=== PATIENT | male | born 1945 | race Caucasian/White ===

== ENCOUNTER 2018-04-14 14:58 | Observation (INO) | payer MEDICARE, OTHER ==
[~2018-04-14] VITALS: Ht 180.3 cm; Wt 188.7 kg
--- OUTSIDE RECORDS SUMMARY | 2018-04-14 15:01 | XMS REPORT | Continuity of Care Document ---
Author Author [facility] Address [address] [place] [address] ;ext= Care Team Providers Care Vegetable Cook Name Role Phone CHAZMOHINIBAKARI Admphys [facility] Diagnosis * No data in the System SOCIAL HISTORY * Smoking Status - No data in the system Problems Code Code System Problem Name Start Date End Date Status 496628492 SNOMED-CT Small bowel obstruction 01/29/2018 Active 1119927 SNOMED-CT Acute abdomen 06/01/1999 Active 6435678 SNOMED-CT Priapism [address] Description [id number] Patient Not On Self-Medication Allergies Code Code System Allergy Substance Type Reaction Severity Start Date End Date Status RXNorm NKA Drug allergy Unknown Active Results Laboratory Results Order: [facility] HISTOLOGY RESULT Specimen Source: APSURG Body Site: LOINC Test Result Flag Range Unit Date 1 01/30/2018 11:[address] [place] [address] 01/30/2018 11:39 1 [place], [place] [address] 01/30/2018 11:39 1 01/30/2018 11:39 1 CLIA #: [id number] Varnish Inspector: Brenden Jenkins M.D. 01/30/2018 11:39 1 Surgical Pathology Consultation Report 01/30/2018 11:39 1 Patient Name: MCKAY KEITH Case #: [id number] Med. Rec. #: 01/30/2018 11:39 8 [id number] 01/30/2018 11:39 1 Location: [facility] Surgery Date: 01/29/2018 : 1945 (Age: 72) 01/30/2018 11:39 1 Account #: 01/30/2018 11:39 2 [id number] Received: 01/30/2018 Gender: M Copy to : Reported: 01/30/2018 11:39 1 01/31/2018 01/30/2018 11:39 1 Physician(s): Mohini Ware 01/30/2018 11:39 1 01/30/2018 11:39 1 Specimen(s) Received 01/30/2018 11:39 1 A: Hernia sac, NOS 01/30/2018 11:39 1 B: Omentum, resection 01/30/2018 11:39 1 Final Pathologic Diagnosis 01/30/2018 11:39 1 A. Soft tissue of abdomen, hernia repair: 01/30/2018 11:39 1 - HERNIA SAC. 01/30/2018 11:39 1 B. Omentum, resection: 01/30/2018 11:39 1 - MATURE ADIPOSE TISSUE, NO TUMOR PRESENT. 01/30/2018 11:39 1 Electronically Signed Out 01/30/2018 11:39 1 ka/01/31/2018 Brenden Jenkins MD, Board Certified in Anatomic Pathology 01/30/2018 11:39 1 01/30/2018 11:39 1 Clinical History 01/30/2018 11:39 1 Abdominal hernia. 01/30/2018 11:39 1 Gross Description 01/30/2018 11:39 1 Specimen A is labeled hernia sac. Three pieces of fatty omental tissue 01/30/2018 11:39 1 measuring 9.8 x 9 x up to 5 cm in aggregate are received. Serially 01/30/2018 11:39 1 sectioning 01/30/2018 11:39 1 reveals a slightly hemorrhagic cut surface. Architectural Technologist sections are 01/30/2018 11:39 1 submitted in cassette A. 01/30/2018 11:39 1 Specimen B is labeled omentum. An aggregate of fatty omental tissue 01/30/2018 11:39 1 measuring 01/30/2018 11:39 1 16 x 14 x up to 8 cm is received. Serially sectioning reveals a bright 01/30/2018 11:39 1 yellow 01/30/2018 11:39 1 cut surface. There are no tumor masses identified. 01/30/2018 11:39 1 /01/30/2018 Brenden Jenkins MD, Board Certified in Anatomic Pathology 01/30/2018 11:39 1 01/30/2018 11:39 1 Microscopic Description 01/30/2018 11:39 1 Microscopic examination of specimen A labeled hernia sac reveals 01/30/2018 11:39 1 mesothelial-lined fatty fibrovascular tissue. There is a mild chronic 01/30/2018 11:39 1 inflammatory cell infiltrate seen within the fibrous tissue. 01/30/2018 11:39 1 Microscopic examination of specimen B labeled mesenteric adipose tissue 01/30/2018 11:39 1 reveals mature adipose tissue. There are no malignant cells seen. 01/30/2018 11:39 1 Billing Fee Code(s): A; 03238 01/30/2018 11:39 1 B; 16233 01/30/2018 11:39 * Performing Lab Footnotes:* [address] [place] [address] - [phone] - [phone] [address] [facility] - MD: DIRECTOR BRENDEN JENKINS Vital Signs * No data in the system Advance Directives Undefined Advance Directive Directive Type Effective Date Martial Arts Instructor Notes Supporting Document Name Address Phone No Directive Type specified 06/29/2012 21:27 Not Specified Not Specified Not Specified None No Patient does NOT have Living Will Directive Type Effective Date Martial Arts Instructor Notes Supporting Document Name Address Phone No Directive Type specified 01/29/2018 02:49 Not Specified Not Specified Not Specified None No Full Code Directive Type Effective Date Martial Arts Instructor Notes Supporting Document Name Address Phone No Directive Type specified 01/29/2018 10:15 Not Specified Not Specified Not Specified None No Family History * Patient has no knowledge of Family History Plan of Care * No data in the system Procedures * No data in the system Encounters * No data in the system Immunizations Vaccine Code Code System Vaccine Name Date Status 141 CVX Influenza, seasonal, injectable Completed 33 CVX pneumococcal polysaccharide vaccine Completed Functional Status * No data in the system Hospital Discharge Instructions * No data in the system
--- OUTSIDE RECORDS SUMMARY | 2018-04-14 15:01 | XMS REPORT ---
[facility] Address Unknown Phone Unavailable Care Team Providers Care Control Officer Manager Name Role Phone EDDIE ORTIZ Unavailable Unavailable SHANTA ALBARADO Unavailable Unavailable EKTA ORONA Unavailable Unavailable Aditi WARE Unavailable Unavailable Payers Payer Name Policy Type Policy Number Effective Date Expiration Date Problems This patient has no known problems. Allergies, Adverse Reactions, Alerts Allergy Name Allergy Type Status Severity Reaction(s) Onset Date Inactive Date Treating Clinician Comments No Known Allergies DA Active U 2018-02-15 00:00:00 No Known Contrast Allergies DA Active U 2003-08-01 00:00:00 No Known Drug Allergies DA Active U 2003-08-01 00:00:00 No Known Food Allergies DA Active U 2003-08-01 00:00:00 No Known Other Allergies DA Active U 2003-08-01 00:00:00 Medications This patient has no known medications. Results Test Description Test Time Test Comments Text Results Atomic Results Result Comments XR FOOT 2VWS 2018-02-09 02:25:00 Procedure: XR FOOT 2VWSExam Date: February 09, 2018Ordering Provider: EDDIE ORTIZClinical Indication: pain s/p fallComparison: NoneFindings: See impressionImpression:1. No evidence of acute osseous abnormalities.2. There is diffuse soft tissue edema throughout the right foot with dorsalfoot predominance.3. Multiple soft tissue calcifications noted on the lower pretibialdistribution.4. Degenerative changes of the mid and forefootThis final report was electronically signed by Dr Eddie Figueroa MD02/09/2018 2:18 AMDictated By: Rosalinda SANTIAGO: 02/09/2018 02:18 XR LEG (TIB/FIB) 2 VIEWS 2018-02-09 02:23:54 Procedure: XR LEG (TIB/FIB) 2 VIEWS, XR LEG (TIB/FIB) 2 VIEWSExam Date: February 09, 2018Ordering Provider: Eddie Cortez Indication: pain s/p fallComparison: NoneFindings: See impressionImpression:1. No acute osseous abnormalities in the bilateral leg (tibial/fibular).2. Bilateral degenerative changes of the knee with medial compartmentpredominance.3. Diffuse soft tissue edema and vascular calcifications throughout the softtissuesThis final report was electronically signed by Dr Eddie Figueroa MD02/09/2018 2:17 AMDictated By: Rosalinda SANTIAGO: 02/09/2018 02:17 XR LEG (TIB/FIB) 2 VIEWS 2018-02-09 02:23:50 Procedure: XR LEG (TIB/FIB) 2 VIEWS, XR LEG (TIB/FIB) 2 VIEWSExam Date: February 09, 2018Ordering Provider: Eddie oCrtez Indication: pain s/p fallComparison: NoneFindings: See impressionImpression:1. No acute osseous abnormalities in the bilateral leg (tibial/fibular).2. Bilateral degenerative changes of the knee with medial compartmentpredominance.3. Diffuse soft tissue edema and vascular calcifications throughout the softtissuesThis final report was electronically signed by Dr Eddie Figueroa MD02/09/2018 2:17 AMDictated By: Rosalinda SANTIAGO: 02/09/2018 02:17 XR FOOT 2VWS 2018-02-09 02:19:45 Procedure: XR FOOT 2VWSExam Date: February 09, 2018Ordering Provider: Eddie Cortez Indication: pain s/p fallComparison: NoneFindings: See impressionImpression:1. No evidence of acute osseous abnormalities.2. There is diffuse soft tissue edema throughout the right foot with dorsalfoot predominance.3. Multiple soft tissue calcifications noted on the level of the ankle.4. Degenerative changes of the mid and forefootThis final report was electronically signed by Dr Eddie Figueroa MD02/09/2018 2:13 AMDictated By: Rosalinda SANTIAGO: 02/09/2018 02:13 CBC WITH MANUAL DIFF 2018-02-06 14:44:00 WBC (test code=WBC) 11.07 10\\S\\3/ul 4.80-10.80 RBC (test code=RBC) 4.39 10\\S\\6/ul 4.70-6.10 Hemoglobin (test code=HGB) 14.5 gm/dl 14.0-18.0 Hematocrit (test code=HCT) 43.4 % 42.0-50.0 MCV (test code=MCV) 98.9 fL 80.0-94.0 MCH (test code=MCH) 33.0 pg 27.0-31.0 MCHC (test code=MCHC) 33.4 gm/dl 33.0-37.0 RDW (test code=RDWVC) 12.8 % 11.5-14.5 Platelet (test code=PLT) 170 10\\S\\3/ul 130-400 MPV (test code=MPV) 10.6 fL 7.4-10.4 "NOT MEASURED" RESULTS ARE DISPLAYED WHEN THE INSTRUMENT HAS A SUPPRESSED OR UNREPORTABLE RESULT. THIS WILL MOST OFTEN HAPPEN WITH THE MPV WHEN THERE IS AN ABNORMAL PLATELET DISTRIBUTION DUE TO A CR ITICAL LOW VALUE OR PLATELET CLUMPING. THE RDW MAY BE SUPPRESSED IF THERE ARE MULTIPLE PEAKS PRESENT ON THE RBC HISTOGRAM. IN THIS CASE, A MANUAL REVIEW OF THE SLIDE WILL BE PERFORMED, AND RBC MORPHOLOGY WILL BE NOTED ON THE REPORT. Neutrophils (test code=NEUTR) 84 10\\S\\3/ul 42-75 Lymphocytes (test code=LYMPH) 7 % 13-42 Monocytes (test code=MONOS) 6 % 4-14 Eosinophils (test code=EOS) 3 % 1-3 RBC Morphology (test code=RBCMOR) Normochromic CBC (HEMOGRAM ONLY)2018-02-06 08:11:00* Test Item Value Reference Range Comments WBC (test code=WBC) 9.46 10\\S\\3/ul 4.80-10.80 RBC (test code=RBC) 5.76 10\\S\\6/ul 4.70-6.10 Hemoglobin (test code=HGB) 19.2 gm/dl 14.0-18.0 Hematocrit (test code=HCT) 55.6 % 42.0-50.0 MCV (test code=MCV) 96.5 fL 80.0-94.0 MCH (test code=MCH) 33.3 pg 27.0-31.0 MCHC (test code=MCHC) 34.5 gm/dl 33.0-37.0 RDW (test code=RDWVC) 12.8 % 11.5-14.5 Platelet (test code=PLT) 117 10\\S\\3/ul 130-400 MPV (test code=MPV) 11.1 fL 7.4-10.4 "NOT MEASURED" RESULTS ARE DISPLAYED WHEN THE INSTRUMENT HAS A SUPPRESSED OR UNREPORTABLE RESULT. THIS WILL MOST OFTEN HAPPEN WITH THE MPV WHEN THERE IS AN ABNORMAL PLATELET DISTRIBUTION DUE TO A CR ITICAL LOW VALUE OR PLATELET CLUMPING. THE RDW MAY BE SUPPRESSED IF THERE ARE MULTIPLE PEAKS PRESENT ON THE RBC HISTOGRAM. IN THIS CASE, A MANUAL REVIEW OF THE SLIDE WILL BE PERFORMED, AND RBC MORPHOLOGY WILL BE NOTED ON THE REPORT. [id number] 07:44:00* Test Item Value Reference Range Comments Sodium (test code=NA) 144 mmol/l 137-145 Potassium (test code=K) 4.0 mmol/l 3.5-5.0 Chloride (test code=CL) 111 mmol/l 98-107 Calcium (test code=CALC) 8.9 mg/dl 8.4-10.2 CO2 (test code=CO2) 26 mmol/l 22-30 Glucose (test code=GLU) 109 mg/dl 75-110 BUN (test code=BUN) 26.0 mg/dl 6.0-17.0 Creatinine (test code=CREA) 1.1 mg/dl 0.4-1.2 EGFR if (test code=EGFRAA) >60 mL/min/1.73m\\S\\2 EGFR if Non- (test code=EGFRNA) >60 mL/min/1.73m\\S\\2 Estimated Glomerular Filtration Rate (eGFR) Reference Intervals Decision Points for 18 years and older and average body mass: >=60 Does not exclude kidney disease. 30 - 59 Suggests moderate chronic kidney disease and indicates the need for further investigation including assessment of proteinuria and cardiovascular factors. < 30 Usually indicates a need for referral for assessment and management of chronic kidney failure. CBC WITH AUTO [id number] 07:50:00* Test Item Value Reference Range Comments WBC (test code=WBC) 8.08 10\\S\\3/ul 4.80-10.80 RBC (test code=RBC) 4.60 10\\S\\6/ul 4.70-6.10 Hemoglobin (test code=HGB) 15.1 gm/dl 14.0-18.0 Hematocrit (test code=HCT) 45.6 % 42.0-50.0 MCV (test code=MCV) 99.1 fL 80.0-94.0 MCH (test code=MCH) 32.8 pg 27.0-31.0 MCHC (test code=MCHC) 33.1 gm/dl 33.0-37.0 RDW (test code=RDWVC) 12.7 % 11.5-14.5 Platelet (test code=PLT) 167 10\\S\\3/ul 130-400 MPV (test code=MPV) 11.1 fL 7.4-10.4 "NOT MEASURED" RESULTS ARE DISPLAYED WHEN THE INSTRUMENT HAS A SUPPRESSED OR UNREPORTABLE RESULT. THIS WILL MOST OFTEN HAPPEN WITH THE MPV WHEN THERE IS AN ABNORMAL PLATELET DISTRIBUTION DUE TO A CR ITICAL LOW VALUE OR PLATELET CLUMPING. THE RDW MAY BE SUPPRESSED IF THERE ARE MULTIPLE PEAKS PRESENT ON THE RBC HISTOGRAM. IN THIS CASE, A MANUAL REVIEW OF THE SLIDE WILL BE PERFORMED, AND RBC MORPHOLOGY WILL BE NOTED ON THE REPORT. NE% (test code=NE) 68.3 % 42.0-75.0 LY% (test code=LY) 11.8 % 13.0-42.0 MO% (test code=MO) 10.9 % 4.0-14.0 EO% (test code=EO) 5.2 % 1.0-5.0 BA% (test code=BA) 1.2 % 0.0-3.0 IG% (test code=IG%) 2.6 % 0.0-0.4 CBC AUTO [id number] 07:37:00* Test Item Value Reference Range Comments Magnesium (test code=MG) 1.6 mg/dl 1.6-2.3 [id number] 07:34:00* Test Item Value Reference Range Comments Sodium (test code=NA) 143 mmol/l 137-145 Potassium (test code=K) 4.0 mmol/l 3.5-5.0 Chloride (test code=CL) 112 mmol/l 98-107 Calcium (test code=CALC) 8.9 mg/dl 8.4-10.2 CO2 (test code=CO2) 24 mmol/l 22-30 Glucose (test code=GLU) 108 mg/dl 75-110 BUN (test code=BUN) 39.0 mg/dl 6.0-17.0 Creatinine (test code=CREA) 1.6 mg/dl 0.4-1.2 T Protein (test code=TP) 6.9 gm/dl 5.1-8.7 Albumin (test code=ALB) 3.3 gm/dl 3.5-4.6 A/G Ratio (test code=AGRAT) 0.9 % 1.1-2.2 AST (SGOT) (test code=AST) 64 U/L 11-36 ALT (SGPT) (test code=ALT) 55 U/L 11-40 Alkaline Phos (test code=ALKP) 153 U/L 47-114 Total Bilirubin (test code=TBIL) 0.9 mg/dl 0.2-1.2 Globulin (test code=GLOBU) 3.6 gm/dl 2.3-3.5 Calcium, Corrected (test code=CALCCORR) 9.5 mg/dl 8.4-10.2 Various formulas exist for corrected serum calcium results, each yielding different values. This corrected result was based on the formula: Corrected Calcium=SerumCalcium + [0.8 * ( 4 - SerumAlbumin)] EGFR if (test code=EGFRAA) 55 mL/min/1.73m\\S\\2 EGFR if Non- (test code=EGFRNA) 45 mL/min/1.73m\\S\\2 Estimated Glomerular Filtration Rate (eGFR) Reference Intervals Decision Points for 18 years and older and average body mass: >=60 Does not exclude kidney disease. 30 - 59 Suggests moderate chronic kidney disease and indicates the need for further investigation including assessment of proteinuria and cardiovascular factors. < 30 Usually indicates a need for referral for assessment and management of chronic kidney failure. EOSINOPHIL COUNT [id number] 07:03:00* Test Item Value Reference Range Comments EOSINOPHIL COUNT URINE (test xeah=[id number]) No Eosinophils Seen % <5% few or none seen [id number] 06:40:00* Test Item Value Reference Range Comments Sodium (test code=NA) 143 mmol/l 137-145 Potassium (test code=K) 4.7 mmol/l 3.5-5.0 Chloride (test code=CL) 112 mmol/l 98-107 Calcium (test code=CALC) 9.2 mg/dl 8.4-10.2 CO2 (test code=CO2) 18 mmol/l 22-30 Glucose (test code=GLU) 124 mg/dl 75-110 BUN (test code=BUN) 64.0 mg/dl 6.0-17.0 Creatinine (test code=CREA) 4.9 mg/dl 0.4-1.2 EGFR if (test code=EGFRAA) 15 mL/min/1.73m\\S\\2 EGFR if Non- (test code=EGFRNA) 12 mL/min/1.73m\\S\\2 Estimated Glomerular Filtration Rate (eGFR) Reference Intervals Decision Points for 18 years and older and average body mass: >=60 Does not exclude kidney disease. 30 - 59 Suggests moderate chronic kidney disease and indicates the need for further investigation including assessment of proteinuria and cardiovascular factors. < 30 Usually indicates a need for referral for assessment and management of chronic kidney failure. CBC WITH AUTO [id number] 06:26:00* Test Item Value Reference Range Comments WBC (test code=WBC) 10.52 10\\S\\3/ul 4.80-10.80 RBC (test code=RBC) 4.82 10\\S\\6/ul 4.70-6.10 Hemoglobin (test code=HGB) 16.0 gm/dl 14.0-18.0 Hematocrit (test code=HCT) 47.6 % 42.0-50.0 MCV (test code=MCV) 98.8 fL 80.0-94.0 MCH (test code=MCH) 33.2 pg 27.0-31.0 MCHC (test code=MCHC) 33.6 gm/dl 33.0-37.0 RDW (test code=RDWVC) 12.5 % 11.5-14.5 Platelet (test code=PLT) 163 10\\S\\3/ul 130-400 MPV (test code=MPV) 11.1 fL 7.4-10.4 "NOT MEASURED" RESULTS ARE DISPLAYED WHEN THE INSTRUMENT HAS A SUPPRESSED OR UNREPORTABLE RESULT. THIS WILL MOST OFTEN HAPPEN WITH THE MPV WHEN THERE IS AN ABNORMAL PLATELET DISTRIBUTION DUE TO A CR ITICAL LOW VALUE OR PLATELET CLUMPING. THE RDW MAY BE SUPPRESSED IF THERE ARE MULTIPLE PEAKS PRESENT ON THE RBC HISTOGRAM. IN THIS CASE, A MANUAL REVIEW OF THE SLIDE WILL BE PERFORMED, AND RBC MORPHOLOGY WILL BE NOTED ON THE REPORT. NE% (test code=NE) 79.4 % 42.0-75.0 LY% (test code=LY) 7.1 % 13.0-42.0 MO% (test code=MO) 10.4 % 4.0-14.0 EO% (test code=EO) 1.2 % 1.0-5.0 BA% (test code=BA) 0.6 % 0.0-3.0 IG% (test code=IG%) 1.3 % 0.0-0.4 CBC AUTO [id number] 12:57:00* Test Item Value Reference Range Comments Sodium (test code=NA) 137 mmol/l 137-145 Potassium (test code=K) 5.3 mmol/l 3.5-5.0 Chloride (test code=CL) 107 mmol/l 98-107 Calcium (test code=CALC) 9.1 mg/dl 8.4-10.2 CO2 (test code=CO2) 17 mmol/l 22-30 Glucose (test code=GLU) 114 mg/dl 75-110 BUN (test code=BUN) 83.0 mg/dl 6.0-17.0 Creatinine (test code=CREA) 9.6 mg/dl 0.4-1.2 EGFR if (test code=EGFRAA) 7 mL/min/1.73m\\S\\2 EGFR if Non- (test code=EGFRNA) 6 mL/min/1.73m\\S\\2 Estimated Glomerular Filtration Rate (eGFR) Reference Intervals Decision Points for 18 years and older and average body mass: >=60 Does not exclude kidney disease. 30 - 59 Suggests moderate chronic kidney disease and indicates the need for further investigation including assessment of proteinuria and cardiovascular factors. < 30 Usually indicates a need for referral for assessment and management of chronic kidney failure. PT AND [id number] 12:38:00* Test Item Value Reference Range Comments Protime (test code=PT) 10.8 seconds 9.0-11.9 INR (test code=INR) 1.0 0.9-1.1 INR results are intended ONLY to monitor Oral Anticoagulant therapy in stablized patients. The INR Therapeutic Range is 2.0 - 3.0 Patients with a mechanical heart, the INR Range is 2.5 - 3.5 US RENAL & BLADDER (KIDNEYS)2018-02-03 11:33:29Procedure: US RENALOrder Date: 02/03/2018 9:47 AMOrdering Provider: JEFFERSON Escuderoinical Indication: ABDDIST: Abdominal Distentionworsening renal failure, eval for worsening hydronephrosisComparison: January 31, 2018Technique: Real-time ultrasonography was obtained over the kidneys and urinarybladder and senior outside sales representative images were recorded.Findings:The right kidney is normal in size and contour. The right kidney measures 11.1 x6.7 x 6.9 cm in CC, AP, and transverse dimensions.There is normal renal cortical thickness and echogenicity.Mild right hydronephrosis.No calculi or masses.The left kidney is normal in size and contour. The left kidney measures 10.1 x6.2 x 6.7 cm in CC, AP, and transverse dimensions.There is normal renal cortical thickness and echogenicity.There is a simple cyst arising from the superior pole measuring 4.9 x 4.0 cm.Mild left hydronephrosis.No calculi or masses.The bladder is significantly distended with a total volume of 1167 mL.Patient did not have an urge to void.There are no bladder calculi, masses, or focal wall thickening.Impression:1. Significant distention of the bladder with a volume of 1167 mL. The patienthad no urge to void during the exam. Recommend Morgan catheter placement.2. Mild hydronephrosis bilaterally which is likely secondary to the distendedbladder.3. 4.9 cm simple cyst arising from the super ior pole of the left kidney.5. No solid renal masses or calculi.6. Preliminary r eport relayed by the inbound telemarketer to the attending nurse.This final report was el ectronically signed by Dr Doc Schmidt MD 02/03/201811:27 AMDictated By: DOC MEDELLINDate: 02/03/2018 11:[id number] 08:10:00* Test Item Value Reference Range Comments Sodium (test code=NA) 138 mmol/l 137-145 Potassium (test code=K) 5.6 mmol/l 3.5-5.0 Chloride (test code=CL) 108 mmol/l 98-107 Calcium (test code=CALC) 8.9 mg/dl 8.4-10.2 CO2 (test code=CO2) 16 mmol/l 22-30 Glucose (test code=GLU) 92 mg/dl 75-110 BUN (test code=BUN) 77.0 mg/dl 6.0-17.0 Creatinine (test code=CREA) 9.0 mg/dl 0.4-1.2 T Protein (test code=TP) 7.1 gm/dl 5.1-8.7 Albumin (test code=ALB) 3.3 gm/dl 3.5-4.6 A/G Ratio (test code=AGRAT) 0.9 % 1.1-2.2 AST (SGOT) (test code=AST) 41 U/L 11-36 ALT (SGPT) (test code=ALT) 38 U/L 11-40 Alkaline Phos (test code=ALKP) 107 U/L 47-114 Total Bilirubin (test code=TBIL) 1.3 mg/dl 0.2-1.2 Globulin (test code=GLOBU) 3.8 gm/dl 2.3-3.5 Calcium, Corrected (test code=CALCCORR) 9.5 mg/dl 8.4-10.2 Various formulas exist for corrected serum calcium results, each yielding different values. This corrected result was based on the formula: Corrected Calcium=SerumCalcium + [0.8 * ( 4 - SerumAlbumin)] EGFR if (test code=EGFRAA) 7 mL/min/1.73m\\S\\2 EGFR if Non- (test code=EGFRNA) 6 mL/min/1.73m\\S\\2 Estimated Glomerular Filtration Rate (eGFR) Reference Intervals Decision Points for 18 years and older and average body mass: >=60 Does not exclude kidney disease. 30 - 59 Suggests moderate chronic kidney disease and indicates the need for further investigation including assessment of proteinuria and cardiovascular factors. < 30 Usually indicates a need for referral for assessment and management of chronic kidney failure. CBC WITH AUTO [id number] 06:59:00* Test Item Value Reference Range Comments WBC (test code=WBC) 11.41 10\\S\\3/ul 4.80-10.80 RBC (test code=RBC) 4.55 10\\S\\6/ul 4.70-6.10 Hemoglobin (test code=HGB) 15.3 gm/dl 14.0-18.0 Hematocrit (test code=HCT) 45.8 % 42.0-50.0 MCV (test code=MCV) 100.7 fL 80.0-94.0 MCH (test code=MCH) 33.6 pg 27.0-31.0 MCHC (test code=MCHC) 33.4 gm/dl 33.0-37.0 RDW (test code=RDWVC) 12.8 % 11.5-14.5 Platelet (test code=PLT) 159 10\\S\\3/ul 130-400 MPV (test code=MPV) 11.5 fL 7.4-10.4 "NOT MEASURED" RESULTS ARE DISPLAYED WHEN THE INSTRUMENT HAS A SUPPRESSED OR UNREPORTABLE RESULT. THIS WILL MOST OFTEN HAPPEN WITH THE MPV WHEN THERE IS AN ABNORMAL PLATELET DISTRIBUTION DUE TO A CR ITICAL LOW VALUE OR PLATELET CLUMPING. THE RDW MAY BE SUPPRESSED IF THERE ARE MULTIPLE PEAKS PRESENT ON THE RBC HISTOGRAM. IN THIS CASE, A MANUAL REVIEW OF THE SLIDE WILL BE PERFORMED, AND RBC MORPHOLOGY WILL BE NOTED ON THE REPORT. NE% (test code=NE) 79.0 % 42.0-75.0 LY% (test code=LY) 7.5 % 13.0-42.0 MO% (test code=MO) 9.7 % 4.0-14.0 EO% (test code=EO) 2.2 % 1.0-5.0 BA% (test code=BA) 0.4 % 0.0-3.0 IG% (test code=IG%) 1.2 % 0.0-0.4 CULTURE, [id number] 06:21:00Specimen: Urine SpecimensCollected: 01/31/2018 21:40 Status: Final Last Updated: 02/03/2018 06:21 Culture Result (Final) (Final) No Growth After 48 Hours [id number] 07:29:00* Test Item Value Reference Range Comments Sodium (test code=NA) 142 mmol/l 137-145 Potassium (test code=K) 4.8 mmol/l 3.5-5.0 Chloride (test code=CL) 113 mmol/l 98-107 Calcium (test code=CALC) 8.6 mg/dl 8.4-10.2 CO2 (test code=CO2) 18 mmol/l 22-30 Glucose (test code=GLU) 95 mg/dl 75-110 BUN (test code=BUN) 51.0 mg/dl 6.0-17.0 Creatinine (test code=CREA) 5.7 mg/dl 0.4-1.2 EGFR if (test code=EGFRAA) 13 mL/min/1.73m\\S\\2 EGFR if Non- (test code=EGFRNA) 10 mL/min/1.73m\\S\\2 Estimated Glomerular Filtration Rate (eGFR) Reference Intervals Decision Points for 18 years and older and average body mass: >=60 Does not exclude kidney disease. 30 - 59 Suggests moderate chronic kidney disease and indicates the need for further investigation including assessment of proteinuria and cardiovascular factors. < 30 Usually indicates a need for referral for assessment and management of chronic kidney failure. CBC WITH AUTO [id number] 07:08:00* Test Item Value Reference Range Comments WBC (test code=WBC) 14.10 10\\S\\3/ul 4.80-10.80 RBC (test code=RBC) 4.59 10\\S\\6/ul 4.70-6.10 Hemoglobin (test code=HGB) 15.3 gm/dl 14.0-18.0 Hematocrit (test code=HCT) 47.0 % 42.0-50.0 MCV (test code=MCV) 102.4 fL 80.0-94.0 MCH (test code=MCH) 33.3 pg 27.0-31.0 MCHC (test code=MCHC) 32.6 gm/dl 33.0-37.0 RDW (test code=RDWVC) 13.2 % 11.5-14.5 Platelet (test code=PLT) 165 10\\S\\3/ul 130-400 MPV (test code=MPV) 10.9 fL 7.4-10.4 "NOT MEASURED" RESULTS ARE DISPLAYED WHEN THE INSTRUMENT HAS A SUPPRESSED OR UNREPORTABLE RESULT. THIS WILL MOST OFTEN HAPPEN WITH THE MPV WHEN THERE IS AN ABNORMAL PLATELET DISTRIBUTION DUE TO A CR ITICAL LOW VALUE OR PLATELET CLUMPING. THE RDW MAY BE SUPPRESSED IF THERE ARE MULTIPLE PEAKS PRESENT ON THE RBC HISTOGRAM. IN THIS CASE, A MANUAL REVIEW OF THE SLIDE WILL BE PERFORMED, AND RBC MORPHOLOGY WILL BE NOTED ON THE REPORT. NE% (test code=NE) 84.0 % 42.0-75.0 LY% (test code=LY) 7.2 % 13.0-42.0 MO% (test code=MO) 7.4 % 4.0-14.0 EO% (test code=EO) 0.6 % 1.0-5.0 BA% (test code=BA) 0.3 % 0.0-3.0 IG% (test code=IG%) 0.5 % 0.0-0.4 [id number] 23:00:00* Test Item Value Reference Range Comments Magnesium (test code=MG) 2.1 mg/dl 1.6-2.3 PRO-BNP(B-Type Natriuretic Peptide)2018-01-31 23:00:00* Test Item Value Reference Range Comments Pro-BNP(B-Peptide) (test code=PROBNP) 9160 pg/ml 0-125 THE METHODOLOGY FOR DETECTION OF B-NATRIURETIC PEPTIDE HAS BEEN CHANGED TO "NT pro-BNP". THE NORMAL RANGES HAVE CHANGED. PLEASE NOTE THAT RANGES ARE DEFINED BY THE AGE OF THE PATIENT. (<75 years old=0-125 pg/ml 75years and older=0-450pg/ml). VALUES ARE NOT INTERCHANGEABLE BETWEEN METHODS. 04-30-2006 [id number] 22:33:00* Test Item Value Reference Range Comments Sodium (test code=NA) 139 mmol/l 137-145 Potassium (test code=K) 4.8 mmol/l 3.5-5.0 Chloride (test code=CL) 112 mmol/l 98-107 Calcium (test code=CALC) 8.7 mg/dl 8.4-10.2 CO2 (test code=CO2) 19 mmol/l 22-30 Glucose (test code=GLU) 108 mg/dl 75-110 BUN (test code=BUN) 45.0 mg/dl 6.0-17.0 Creatinine (test code=CREA) 4.6 mg/dl 0.4-1.2 EGFR if (test code=EGFRAA) 16 mL/min/1.73m\\S\\2 EGFR if Non- (test code=EGFRNA) 13 mL/min/1.73m\\S\\2 Estimated Glomerular Filtration Rate (eGFR) Reference Intervals Decision Points for 18 years and older and average body mass: >=60 Does not exclude kidney disease. 30 - 59 Suggests moderate chronic kidney disease and indicates the need for further investigation including assessment of proteinuria and cardiovascular factors. < 30 Usually indicates a need for referral for assessment and management of chronic kidney failure. PT AND [id number] 22:27:00* Test Item Value Reference Range Comments Protime (test code=PT) 10.9 seconds 9.0-11.9 INR (test code=INR) 1.1 0.9-1.1 INR results are intended ONLY to monitor Oral Anticoagulant therapy in stablized patients. The INR Therapeutic Range is 2.0 - 3.0 Patients with a mechanical heart, the INR Range is 2.5 - 3.5 CBC WITH AUTO [id number] 22:17:00* Test Item Value Reference Range Comments WBC (test code=WBC) 14.41 10\\S\\3/ul 4.80-10.80 RBC (test code=RBC) 4.58 10\\S\\6/ul 4.70-6.10 Hemoglobin (test code=HGB) 15.4 gm/dl 14.0-18.0 Hematocrit (test code=HCT) 45.9 % 42.0-50.0 MCV (test code=MCV) 100.2 fL 80.0-94.0 MCH (test code=MCH) 33.6 pg 27.0-31.0 MCHC (test code=MCHC) 33.6 gm/dl 33.0-37.0 RDW (test code=RDWVC) 13.1 % 11.5-14.5 Platelet (test code=PLT) 163 10\\S\\3/ul 130-400 MPV (test code=MPV) 10.4 fL 7.4-10.4 "NOT MEASURED" RESULTS ARE DISPLAYED WHEN THE INSTRUMENT HAS A SUPPRESSED OR UNREPORTABLE RESULT. THIS WILL MOST OFTEN HAPPEN WITH THE MPV WHEN THERE IS AN ABNORMAL PLATELET DISTRIBUTION DUE TO A CR ITICAL LOW VALUE OR PLATELET CLUMPING. THE RDW MAY BE SUPPRESSED IF THERE ARE MULTIPLE PEAKS PRESENT ON THE RBC HISTOGRAM. IN THIS CASE, A MANUAL REVIEW OF THE SLIDE WILL BE PERFORMED, AND RBC MORPHOLOGY WILL BE NOTED ON THE REPORT. NE% (test code=NE) 84.9 % 42.0-75.0 LY% (test code=LY) 6.4 % 13.0-42.0 MO% (test code=MO) 8.0 % 4.0-14.0 EO% (test code=EO) 0.2 % 1.0-5.0 BA% (test code=BA) 0.2 % 0.0-3.0 IG% (test code=IG%) 0.3 % 0.0-0.4 [id number] 14:46:00* Test Item Value Reference Range Comments Glucose (test code=GLU) 108 mg/dl 75-110 BUN (test code=BUN) 39.0 mg/dl 6.0-17.0 Creatinine (test code=CREA) 3.9 mg/dl 0.4-1.2 Sodium (test code=NA) 143 mmol/l 137-145 Potassium (test code=K) 4.8 mmol/l 3.5-5.0 Chloride (test code=CL) 111 mmol/l 98-107 CO2 (test code=CO2) 25 mmol/l 22-30 Calcium (test code=CALC) 8.3 mg/dl 8.4-10.2 EGFR if (test code=EGFRAA) 20 mL/min/1.73m\\S\\2 EGFR if Non- (test code=EGFRNA) 16 mL/min/1.73m\\S\\2 Estimated Glomerular Filtration Rate (eGFR) Reference Intervals Decision Points for 18 years and older and average body mass: >=60 Does not exclude kidney disease. 30 - 59 Suggests moderate chronic kidney disease and indicates the need for further investigation including assessment of proteinuria and cardiovascular factors. < 30 Usually indicates a need for referral for assessment and management of chronic kidney failure. HISTOLOGY [id number] 11:34:00 [address] [place], [place] [address]Txgle: [phone] WGJX #: [id number] Physician General Practice: Selvin Jenkins M.D.Surgical Pathology Consultation ReportPatient Name: MCKAY KEITH Case #: [id number] Med. Rec. #:[id number]: RANI-RANI Surgery Date: 01/29/2018 : 1945 (Age: 72) Received: 01/30/2018 Gender: M Copy to : Re ported:01/31/2018Physician(s): Mohini Arben Specimen(s) ReceivedA: Hernia sac, N OS B: Omentum, resection Final Pathologic DiagnosisA. Soft tissue of ab domen, hernia repair:- HERNIA SAC.B. Omentum, resection:- MATURE ADIPOSE TISSUE, NO TUMOR PRESENT. Electronically Signed Out /01/31/2018 Selvin Jenkins MD, Board Certified in Anatomic Pathology Cl inical HistoryAbdominal hernia.Gross DescriptionSpecimen A is labeled hernia sac . Three pieces of fatty omental tissuemeasuring 9.8 x 9 x up to 5 cm in aggregat e are received. Seriallysectioningreveals a slightly hemorrhagic cut surface. Re presentative sections aresubmitted in cassette A.Specimen B is labeled omentum. An aggregate of fatty omental [id number] x 14 x up to 8 cm is received. S erially sectioning reveals a brightyellowcut surface. There are no tumor masses identified. ka/01/30/2018 Selvin Jenkins MD, Board Certified in Anatomic Patholog y Microscopic DescriptionMicroscopic examination of specimen A labeled hernia s ac revealsmesothelial-lined fatty fibrovascular tissue. There is a mild chronici nflammatory cell infiltrate seen within the fibrous tissue.Microscopic examinati on of specimen B labeled mesenteric adipose tissuereveals mature adipose tissue. There are no malignant cells seen.Billing Fee Code(s): A; 36420L; [id number] RENAL & BLADDER (KIDNEYS)2018-01-31 11:31:18Renal ultrasound:History: Hematuria and abdominal pain with distentionThe right kidney measures 10.4 cm, with a cortical thickness of 1.4 cm. The leftkidney measures 14.2 cm, with a cortical thickness of 1.8 cm.Parenchymal echogenicity is within normal limits. A 4.2 cm left upper pole renalcyst is present. There is no renal calculus identified. Mild righthydronephrosis is present. There is a 2.4 cm left renal parapelvic cyst. Noperinephric abnormality is identified.The bladder was mildly distended but otherwise unremarkable.Impression:1. Mild right hydronephrosis.2. No renal calculus is identified.3. Left renal cysts.This final report was electronically signed by Dr Seth Cano MD 01/31/201811:24 AMDictated By: SETH CANODate: 01/31/2018 11:[id number] 10:28:00* Test Item Value Reference Range Comments CPK (test code=CPK) 354 U/L 30-135 CORONARY [id number] 06:23:00* Test Item Value Reference Range Comments Triglycerides (test code=TRIG) 95 mg/dl 0-149 Trig. Interpretation Guide: Normal: < 150 mg/dl Borderline High: 150 - 199 mg/dl High: 200 - 499 mg/dl Very High: >=500 mg/dl Cholesterol (test code=CHOL) 129 mg/dl 0-198 HDL (test code=HDL) 46 mg/dl 35-86 dLDL (test code=DILDL) 88 mg/dl 0-99 Direct LDL Intrepretations: Optimal: <100 mg/dl Suspect: 100 - 129 mg/dl Borderline: 130 - 159 mg/dl High: 160 - 189 mg/dl Very High: >190 mg/dl Risk Factor (test code=RFACT) 2.8 0.0-5.0 Risk Factor Men Women Risk Factor 3.4 3.3 1/2 Average 5.0 4.4 Average 9.6 7.1 2X Average 24.0 11.0 3X Average vLDL (test code=VLDL) 19 mg/dl 20-50 [id number] 06:23:00* Test Item Value Reference Range Comments Glucose (test code=GLU) 129 mg/dl 75-110 BUN (test code=BUN) 32.0 mg/dl 6.0-17.0 Creatinine (test code=CREA) 3.0 mg/dl 0.4-1.2 Sodium (test code=NA) 143 mmol/l 137-145 Potassium (test code=K) 4.1 mmol/l 3.5-5.0 Chloride (test code=CL) 109 mmol/l 98-107 CO2 (test code=CO2) 25 mmol/l 22-30 Calcium (test code=CALC) 8.5 mg/dl 8.4-10.2 EGFR if (test code=EGFRAA) 27 mL/min/1.73m\\S\\2 EGFR if Non- (test code=EGFRNA) 22 mL/min/1.73m\\S\\2 Estimated Glomerular Filtration Rate (eGFR) Reference Intervals Decision Points for 18 years and older and average body mass: >=60 Does not exclude kidney disease. 30 - 59 Suggests moderate chronic kidney disease and indicates the need for further investigation including assessment of proteinuria and cardiovascular factors. < 30 Usually indicates a need for referral for assessment and management of chronic kidney failure. CBC WITH AUTO [id number] 05:56:00* Test Item Value Reference Range Comments WBC (test code=WBC) 13.48 10\\S\\3/ul 4.80-10.80 RBC (test code=RBC) 5.17 10\\S\\6/ul 4.70-6.10 Hemoglobin (test code=HGB) 16.9 gm/dl 14.0-18.0 Hematocrit (test code=HCT) 51.9 % 42.0-50.0 MCV (test code=MCV) 100.4 fL 80.0-94.0 MCH (test code=MCH) 32.7 pg 27.0-31.0 MCHC (test code=MCHC) 32.6 gm/dl 33.0-37.0 RDW (test code=RDWVC) 13.1 % 11.5-14.5 Platelet (test code=PLT) 188 10\\S\\3/ul 130-400 MPV (test code=MPV) 10.5 fL 7.4-10.4 "NOT MEASURED" RESULTS ARE DISPLAYED WHEN THE INSTRUMENT HAS A SUPPRESSED OR UNREPORTABLE RESULT. THIS WILL MOST OFTEN HAPPEN WITH THE MPV WHEN THERE IS AN ABNORMAL PLATELET DISTRIBUTION DUE TO A CR ITICAL LOW VALUE OR PLATELET CLUMPING. THE RDW MAY BE SUPPRESSED IF THERE ARE MULTIPLE PEAKS PRESENT ON THE RBC HISTOGRAM. IN THIS CASE, A MANUAL REVIEW OF THE SLIDE WILL BE PERFORMED, AND RBC MORPHOLOGY WILL BE NOTED ON THE REPORT. NE% (test code=NE) 82.1 % 42.0-75.0 LY% (test code=LY) 8.0 % 13.0-42.0 MO% (test code=MO) 9.1 % 4.0-14.0 EO% (test code=EO) 0.1 % 1.0-5.0 BA% (test code=BA) 0.2 % 0.0-3.0 IG% (test code=IG%) 0.5 % 0.0-0.4 URINALYSIS WITH [id number] 05:28:00* Test Item Value Reference Range Comments Color (test code=UCOLR) Brown Clarity (test code=UCLAR) CLEAR Glucose (test code=UGLUC) 100 NEGATIVE Bilirubin (test code=UBILI) LARGE NEGATIVE Ketones (test code=UKET) 15 NEGATIVE Specific [place] (test code=USPGR) 1.020 1.005-1.030 Blood (test code=UBLD) LARGE NEGATIVE PH (test code=UPH) 7.0 4.5-8.0 Protein (test code=UPROT) >=300 NEGATIVE Urobilinogen (test code=U UROB) 4.0 >0.2 Nitrite (test code=UNITR) POSITIVE NEGATIVE Leukocyte Esterase (test code=ULEUK) LARGE NEGATIVE WBC (test code=WBCUR) TNTC 0-5 RBC (test code=RBCUR) TNTC 0-5 Epithial Cells (test code=U EPI) 0-1 0-10 Mucous (test code=UMUC) Large None Seen Bacteria (test code=UBACT) 2+ None Seen,Trace CBC WITH AUTO [id number] 07:53:00* Test Item Value Reference Range Comments WBC (test code=WBC) 10.07 10\\S\\3/ul 4.80-10.80 RBC (test code=RBC) 5.05 10\\S\\6/ul 4.70-6.10 Hemoglobin (test code=HGB) 16.7 gm/dl 14.0-18.0 Hematocrit (test code=HCT) 49.9 % 42.0-50.0 MCV (test code=MCV) 98.8 fL 80.0-94.0 MCH (test code=MCH) 33.1 pg 27.0-31.0 MCHC (test code=MCHC) 33.5 gm/dl 33.0-37.0 RDW (test code=RDWVC) 13.0 % 11.5-14.5 Platelet (test code=PLT) 207 10\\S\\3/ul 130-400 MPV (test code=MPV) 10.3 fL 7.4-10.4 NE% (test code=NE) 82.7 % 42.0-75.0 The value 27.4 originally released by [id number] on 01/30/2018 07:33 was changed to 82.7 by [id number] on 01/30/2018 07:53 LY% (test code=LY) 9.8 % 13.0-42.0 The value 10.0 originally released by [id number] on 01/30/2018 07:33 was changed to 9.8 by [id number] on 01/30/2018 07:53 MO% (test code=MO) 7.2 % 4.0-14.0 The value 7.6 originally released by [id number] on 01/30/2018 07:33 was changed to 7.2 by [id number] on 01/30/2018 07:53 EO% (test code=EO) 0.0 % 1.0-5.0 The value 54.7 originally released by [id number] on 01/30/2018 07:33 was changed to 0.0 by [id number] on 01/30/2018 07:53 BA% (test code=BA) 0.1 % 0.0-3.0 IG% (test code=IG%) 0.2 % 0.0-0.4 [id number] 07:15:00* Test Item Value Reference Range Comments Magnesium (test code=MG) 2.2 mg/dl 1.6-2.3 [id number] 07:15:00* Test Item Value Reference Range Comments Glucose (test code=GLU) 119 mg/dl 75-110 BUN (test code=BUN) 23.0 mg/dl 6.0-17.0 Creatinine (test code=CREA) 1.6 mg/dl 0.4-1.2 Sodium (test code=NA) 138 mmol/l 137-145 Potassium (test code=K) 4.2 mmol/l 3.5-5.0 Chloride (test code=CL) 107 mmol/l 98-107 CO2 (test code=CO2) 24 mmol/l 22-30 Calcium (test code=CALC) 8.4 mg/dl 8.4-10.2 EGFR if (test code=EGFRAA) 55 mL/min/1.73m\\S\\2 EGFR if Non- (test code=EGFRNA) 45 mL/min/1.73m\\S\\2 Estimated Glomerular Filtration Rate (eGFR) Reference Intervals Decision Points for 18 years and older and average body mass: >=60 Does not exclude kidney disease. 30 - 59 Suggests moderate chronic kidney disease and indicates the need for further investigation including assessment of proteinuria and cardiovascular factors. < 30 Usually indicates a need for referral for assessment and management of chronic kidney failure. CT ABDOMEN/PELVIS W/O [id number] 04:49:33NPO 4 hours. Do not withhold medsEXAM: CT ABDOMEN/PELVIS W/O CONTRASTINDICATION: abdominal pain, nausea, vomitingCOMPARISON: NoneTECHNIQUE: The abdomen and pelvis were scanned using a multidetector helicalscanner. Coronal and sagittal reformations were obtained. Dose modulation,iterative reconstruction, and/or weight based adjustment of the mA/kV wasutilized to reduce radiation dose to as low as reasonably achievable. RoutineProtocol performed.IV Contrast: 100cc Isovue 300Oral Contrast: NoneFINDINGS:LOWER THORAX: Nonspecific 6 mm nodule right lung baseLIVER: No massesBILIARY: Cholelithiasis without CT findings of acute cholecystitis.SPLEEN: No massesPANCREAS: No massesADRENALS: No nodulesKIDNEYS: No nephroureterolithiasis or hydronephrosis. Simple cyst measuring 4.3cm superior pole of the left kidney. Left renal pelvic cyst. Nonspecific mildperinephric fat stranding.GI TRACT: There is a loop of distal ileum in a right lower pelvic herniaresulting in obstruction.VESSELS: Un remarkablePERITONEUM/RETROPERITONEUM: No free air or fluidLYMPH NODES: No lympha denopathyREPRODUCTIVE ORGANS: NormalBLADDER: Partially decompressed. Bladder wal l appears trabeculated. Bladder domeis within a right inguinal hernia.SOFT TISSU ES: Right inguinal hernia containing the bladder dome. Right lowerpelvic hernia containing bowel, fluid and adjacent inflammation. Largefat-containing umbilical hernia.BONES: No suspicious bone lesions.IMPRESSION:Right lower pelvic hernia c ontaining a loop of small bowel with resulting moreproximal bowel obstruction. S mall amount of fluid in the hernia sac and adjacentinflammation concerning for s trangulation.Right inguinal hernia containing a part of the bladder.Large fat-co ntaining umbilical hernia.Cholelithiasis.This final report was electronically si gned by Dr Latoya Godinez MD 01/29/2018 4:43AMDictated By: LATOYA GODINEZDate: 01/29 04:43CBC WITH AUTO [id number] 03:12:00* Test Item Value Reference Range Comments WBC (test code=WBC) 12.00 10\\S\\3/ul 4.80-10.80 RBC (test code=RBC) 5.57 10\\S\\6/ul 4.20-5.40 Hemoglobin (test code=HGB) 18.2 gm/dl 12.0-14.0 Hematocrit (test code=HCT) 53.6 % 37.0-47.0 MCV (test code=MCV) 96.2 fL 81.0-99.0 MCH (test code=MCH) 32.7 pg 27.0-31.0 MCHC (test code=MCHC) 34.0 gm/dl 33.0-37.0 RDW (test code=RDWVC) 12.5 % 11.5-14.5 Platelet (test code=PLT) 226 10\\S\\3/ul 130-400 MPV (test code=MPV) 10.3 fL 7.4-10.4 "NOT MEASURED" RESULTS ARE DISPLAYED WHEN THE INSTRUMENT HAS A SUPPRESSED OR UNREPORTABLE RESULT. THIS WILL MOST OFTEN HAPPEN WITH THE MPV WHEN THERE IS AN ABNORMAL PLATELET DISTRIBUTION DUE TO A CR ITICAL LOW VALUE OR PLATELET CLUMPING. THE RDW MAY BE SUPPRESSED IF THERE ARE MULTIPLE PEAKS PRESENT ON THE RBC HISTOGRAM. IN THIS CASE, A MANUAL REVIEW OF THE SLIDE WILL BE PERFORMED, AND RBC MORPHOLOGY WILL BE NOTED ON THE REPORT. NE% (test code=NE) 83.7 % 42.0-75.0 The value 15.7 originally released by [id number] on 01/29/2018 02:32 was changed to 83.7 by [id number] on 01/29/2018 03:11 LY% (test code=LY) 9.0 % 13.0-42.0 The value 8.3 originally released by [id number] on 01/29/2018 02:32 was changed to 9.0 by [id number] on 01/29/2018 03:11 MO% (test code=MO) 6.6 % 4.0-14.0 EO% (test code=EO) 0.1 % 1.0-5.0 The value 68.8 originally released by [id number] on 01/29/2018 02:32 was changed to 0.1 by [id number] on 01/29/2018 03:11 BA% (test code=BA) 0.3 % 0.0-3.0 IG% (test code=IG%) 0.3 % 0.0-0.4 NRBC, Auto (test code=NRBC_AUTO) 0 /100WBC 0-2 No previous value was reported. A value of 0 was entered by [id number] on 01/29/2018 03:11 Neutrophils (test code=NEUTR) 84 10\\S\\3/ul 42-75 No previous value was reported. A value of 84 was entered by [id number] on 01/29/2018 03:11 Lymphocytes (test code=LYMPH) 9 % 13-42 No previous value was reported. A value of 9 was entered by [id number] on 01/29/2018 03:11 Monocytes (test code=MONOS) 7 % 4-14 No previous value was reported. A value of 7 was entered by [id number] on 01/29/2018 03:11 LACTIC ACID [id number] 03:05:00* Test Item Value Reference Range Comments LACTATE (test code=LAC) 2.3 mmol/l 0.7-2.0 Critical values were called to Leanne Hughes RN by [id number] on 01/29/18 03:05 CDT. Results were read back by Leanne Hughes RN.[id number] 03:03:00* Test Item Value Reference Range Comments aPTT (test code=PTT) 25.2 seconds 25.3-35.7 PT AND [id number] 03:03:00* Test Item Value Reference Range Comments Protime (test code=PT) 10.1 seconds 9.0-11.8 INR (test code=INR) 1.0 0.9-1.1 INR results are intended ONLY to monitor Oral Anticoagulant therapy in stablized patients. The INR Therapeutic Range is 2.0 - 3.0 Patients with a mechanical heart, the INR Range is 2.5 - 3.5 [id number] 03:00:00* Test Item Value Reference Range Comments Glucose (test code=GLU) 128 mg/dl 75-110 BUN (test code=BUN) 23.0 mg/dl 6.0-17.0 Creatinine (test code=CREA) 1.4 mg/dl 0.4-1.2 Sodium (test code=NA) 135 mmol/l 137-145 Potassium (test code=K) 4.2 mmol/l 3.5-5.0 Chloride (test code=CL) 104 mmol/l 98-107 CO2 (test code=CO2) 27 mmol/l 22-30 Calcium (test code=CALC) 9.2 mg/dl 8.4-10.2 T Protein (test code=TP) 8.1 gm/dl 5.1-8.7 Albumin (test code=ALB) 3.4 gm/dl 3.5-4.6 A/G Ratio (test code=AGRAT) 0.7 % 1.1-2.2 AST (SGOT) (test code=AST) 19 U/L 11-36 ALT (SGPT) (test code=ALT) 16 U/L 11-40 Alkaline Phos (test code=ALKP) 115 U/L 47-114 Total Bilirubin (test code=TBIL) 0.9 mg/dl 0.2-1.2 Globulin (test code=GLOBU) 4.7 gm/dl 2.3-3.5 Calcium, Corrected (test code=CALCCORR) 9.7 mg/dl 8.4-10.2 Various formulas exist for corrected serum calcium results, each yielding different values. This corrected result was based on the formula: Corrected Calcium=SerumCalcium + [0.8 * ( 4 - SerumAlbumin)] EGFR if (test code=EGFRAA) 47 mL/min/1.73m\\S\\2 EGFR if Non- (test code=EGFRNA) 39 mL/min/1.73m\\S\\2 Estimated Glomerular Filtration Rate (eGFR) Reference Intervals Decision Points for 18 years and older and average body mass: >=60 Does not exclude kidney disease. 30 - 59 Suggests moderate chronic kidney disease and indicates the need for further investigation including assessment of proteinuria and cardiovascular factors. < 30 Usually indicates a need for referral for assessment and management of chronic kidney failure.
--- OUTSIDE RECORDS SUMMARY | 2018-04-14 15:01 | XMS REPORT | Continuity of Care Document ---
Author Author [facility] Address [address] [place] [address] ;ext= Care Team Providers Care Dry Cleaning Teacher Name Role Phone EKTA ORONA Admphys EKTA ORONA Attphys GRISELDA HAYES CP Unavailable BAKARI WRAE CP OLU TARANGO CP Hospital Admission Diagnosis Code Admission Diagnosis Date [id number] Abdominal pain Social History Element Description Code Description Smoking Status Code System Start Date End Date Smoking Status [id number] Never smoker SNOMED-CT Problems Code Code System Problem Name Start Date End Date Status 251724004 SNOMED-CT Small bowel obstruction 01/29/2018 Active 3914099 SNOMED-CT Acute abdomen 06/01/1999 Active 8002637 SNOMED-CT Priapism [address] Description [id number] Patient Not On Self-Medication Allergies Code Code System Allergy Substance Type Reaction Severity Start Date End Date Status RXNorm NKA Drug allergy Unknown Active Results Laboratory Results Order: BMP BASIC METABOLIC PANEL Specimen Source: BLOOD Body Site: [facility] Test Result Flag Range Unit Date 1Glucose 108 75-110 mg/dl 01/31/2018 14:00 1BUN 39 H 6.0-17.0 mg/dl 01/31/2018 14:00 1Creatinine 3.9 H 0.4-1.2 mg/dl 01/31/2018 14:00 1Sodium 143 137-145 mmol/l 01/31/2018 14:00 1Potassium 4.8 3.5-5.0 mmol/l 01/31/2018 14:00 1Chloride 111 H 98-107 mmol/l 01/31/2018 14:00 1CO2 25 22-30 mmol/l 01/31/2018 14:00 1Calcium 8.3 L 8.4-10.2 mg/dl 01/31/2018 14:00 1EGFR if 20 mL/min/1.73m^2 01/31/2018 14:00 1EGFR if Non- 16 mL/min/1.73m^2 01/31/2018 14:00 Note: Estimated Glomerular Filtration Rate (eGFR) Reference Intervals Decision Points for 18 years and older and average body mass: >=60 Does not exclude kidney disease. 30 - 59 Suggests moderate chronic kidney disease and indicates the need for further investigation including assessment of proteinuria and cardiovascular factors. < 30 Usually indicates a need for referral for assessment and management of chronic kidney failure. * Performing Lab Footnotes:* 1[facility] [id number] [place] [id number] [place] - MD: DIRECTOR BRENDEN MAHONEY Order: EOSINOPHIL COUNT URINE Specimen Source: URINE SPECIMENS Body Site: LOINC Test Result Flag Range Unit Date 1Eosinophils:ACnc:Pt:XXX:Ord:Chopra stain No Eosinophils Seen % 01/31/2018 12:33 Note: <5% few or none seen * Performing Lab Footnotes:* 1[facility] [address] - Order: CPK Specimen Source: BLOOD Body Site: LOINC Test Result Flag Range Unit Date 1CPK 354 H 30-135 U/L 01/31/2018 09:03 * Performing Lab Footnotes:* [facility] - [id number] - [facility] [address] [place] [address] HOWARD - : DIRECTOR BRENDEN MAHONEY Order: CBC PLATELET AUTO DIFF Specimen Source: BLOOD Body Site: LOINC Test Result Flag Range Unit Date 1Leukocytes^^corrected for nucleated erythrocytes:NCnc:Pt:Bld:Qn:Automated count 13.48 H 4.80-10.80 10^3/ul 01/31/2018 05:39 789-8 1Erythrocytes:NCnc:Pt:Bld:Qn:Automated count 5.17 4.70-6.10 10^6/ul 01/31/2018 05:39 718-7 1Hemoglobin:MCnc:Pt:Bld:Qn 16.9 14.0-18.0 gm/dl 01/31/2018 05:39 4544-3 1Hematocrit:VFr:Pt:Bld:Qn:Automated count 51.9 H 42.0-50.0 % 01/31/2018 05:39 787-2 1Erythrocyte mean corpuscular volume:EntVol:Pt:RBC:Qn:Automated count 100.4 H 80.0-94.0 fL 01/31/2018 05:39 785-6 1Erythrocyte mean corpuscular hemoglobin:EntMass:Pt:RBC:Qn:Automated count 32.7 H 27.0-31.0 pg 01/31/2018 05:39 786-4 1Erythrocyte mean corpuscular hemoglobin concentration:MCnc:Pt:RBC:Qn:Automated count 32.6 L 33.0-37.0 gm/dl 01/31/2018 05:39 788-0 1Erythrocyte distribution width:Ratio:Pt:RBC:Qn:Automated count 13.1 11.5-14.5 % 01/31/2018 05:39 777-3 1Platelets:NCnc:Pt:Bld:Qn:Automated count 188 130-400 10^3/ul 01/31/2018 05:39 34974-8 1Platelet mean volume:EntVol:Pt:Bld:Qn:Automated count 10.5 A 7.4-10.4 fL 01/31/2018 05:39 Note: 'NOT MEASURED' RESULTS ARE DISPLAYED WHEN THE INSTRUMENT HAS A SUPPRESSED OR UNREPORTABLE RESULT. THIS WILL MOST OFTEN HAPPEN WITH THE MPV WHEN THERE IS AN ABNORMAL PLATELET DISTRIBUTION DUE TO A CRITICAL LOW VALUE OR PLATELET CLUMPING. THE RDW MAY BE SUPPRESSED IF THERE ARE MULTIPLE PEAKS PRESENT ON THE RBC HISTOGRAM. IN THIS CASE, A MANUAL REVIEW OF THE SLIDE WILL BE PERFORMED, AND RBC MORPHOLOGY WILL BE NOTED ON THE REPORT. 770-8 1Neutrophils/100 leukocytes:NFr:Pt:Bld:Qn:Automated count 82.1 H 42.0-75.0 % 01/31/2018 05:39 736-9 1Lymphocytes/100 leukocytes:NFr:Pt:Bld:Qn:Automated count 8 L 13.0-42.0 % 01/31/2018 05:39 5905-5 1Monocytes/100 leukocytes:NFr:Pt:Bld:Qn:Automated count 9.1 4.0-14.0 % 01/31/2018 05:39 713-8 1Eosinophils/100 leukocytes:NFr:Pt:Bld:Qn:Automated count 0.1 L 1.0-5.0 % 01/31/2018 05:39 706-2 1Basophils/100 leukocytes:NFr:Pt:Bld:Qn:Automated count 0.2 0.0-3.0 % 01/31/2018 05:39 1IG% 0.5 H 0.0-0.4 % 01/31/2018 05:39 * Performing Lab Footnotes:* [address] [place] [address] [id number] - [facility] [address] - : DIRECTOR BRENDEN MAHONEY Order: CORONARY RISK Specimen Source: BLOOD Body Site: LOINC Test Result Flag Range Unit Date 1Triglycerides 95 0-149 mg/dl 01/31/2018 05:39 Note: Trig. Interpretation Guide: Normal: < 150 mg/dl Borderline High: 150 - 199 mg/dl High: 200 - 499 mg/dl Very High: >=500 mg/dl 1Cholesterol 129 0-198 mg/dl 01/31/2018 05:39 1HDL 46 35-86 mg/dl 01/31/2018 05:39 64520-0 1Cholesterol.in LDL:MCnc:Pt:Ser/Plas:Qn:Direct assay 88 0-99 mg/dl 01/31/2018 05:39 Note: Direct LDL Intrepretations: Optimal: <100 mg/dl Suspect: 100 - 129 mg/dl Borderline: 130 - 159 mg/dl High: 160 - 189 mg/dl Very High: >190 mg/dl 1Risk Factor 2.8 0.0-5.0 01/31/2018 05:39 Note: Risk Factor Men Women Risk Factor 3.4 3.3 1/2 Average 5.0 4.4 Average 9.6 7.1 2X Average 24.0 11.0 3X Average 1vLDL 19 L 20-50 mg/dl 01/31/2018 05:39 * Performing Lab Footnotes:* 1[facility] [id number] - [address] [place] [address] - MD: DIRECTOR BRENDEN MAHONEY Order: UA URINALYSIS WITH MICROSCOPY Specimen Source: URINE SPECIMENS Body Site: LOINC Test Result Flag Range Unit Date 57786 1Color:Type:Pt:Urine:Nom Brown 01/31/2018 03:45 5767-9 1Appearance:Aper:Pt:Urine:Nom CLEAR 01/31/2018 03:45 2349-9 1Glucose:ACnc:Pt:Urine:Ord 100 A NEGATIVE 01/31/2018 03:45 5770-3 1Bilirubin:ACnc:Pt:Urine:Ord:Test strip LARGE A NEGATIVE 01/31/2018 03:45 2514-8 1Ketones:ACnc:Pt:Urine:Ord:Test strip 15 A NEGATIVE 01/31/2018 03:45 5811-5 1Specific gravity:Rden:Pt:Urine:Qn:Test strip 1.020 A 1.005-1.030 01/31/2018 03:45 5794-3 1Hemoglobin:ACnc:Pt:Urine:Ord:Test strip LARGE A NEGATIVE 01/31/2018 03:45 5803-2 1pH:LsCnc:Pt:Urine:Qn:Test strip 7.0 A 4.5-8.0 01/31/2018 03:45 94124-0 1Protein:ACnc:Pt:Urine:Ord:Test strip >=300 A NEGATIVE 01/31/2018 03:45 5818-0 1Urobilinogen:ACnc:Pt:Urine:Ord:Test strip 4.0 A 0.2 01/31/2018 03:45 5802-4 1Nitrite:ACnc:Pt:Urine:Ord:Test strip POSITIVE A NEGATIVE 01/31/2018 03:45 5799-2 1Leukocyte esterase:ACnc:Pt:Urine:Ord:Test strip LARGE A NEGATIVE 01/31/2018 03:45 5821-4 1Leukocytes:Naric:Pt:Urine sed:Qn:Microscopy.light.HPF TNTC A 0-5 01/31/2018 03:45 94873-6 1Erythrocytes:Naric:Pt:Urine sed:Qn:Microscopy.light.HPF TNTC A 0-5 01/31/2018 03:45 28421-4 1Epithelial cells.squamous:Naric:Pt:Urine sed:Qn:Microscopy.light.HPF 0-1 A 0-10 01/31/2018 03:45 8247-9 1Mucus:ACnc:Pt:Urine sed:Ord:Microscopy.light Large A None Seen 01/31/2018 03:45 5769-5 1Bacteria:Naric:Pt:Urine sed:Qn:Microscopy.light.HPF 2+ A None Seen,Trace 01/31/2018 03:45 * Performing Lab Footnotes:* [address] [place], [place] [id number] [address] [place] [address] HOWARD Cespedes MD: DIRECTOR BRENDEN MAHONEY Order: MAGNESIUM SERUM Specimen Source: BLOOD Body Site: LOINC Test Result Flag Range Unit Date 1Magnesium 2.2 1.6-2.3 mg/dl 01/30/2018 06:23 * Performing Lab Footnotes:* [address] [place], [place] [id number] [place] [address] HOWARD Cespedes MD: DIRECTOR BRENDEN MAHONEY Order: CMP COMPREHENSIVE METABOLIC PANEL Specimen Source: BLOOD Body Site: LOINC Test Result Flag Range Unit Date 1Glucose 128 H 75-110 mg/dl 01/29/2018 02:16 1BUN 23 H 6.0-17.0 mg/dl 01/29/2018 02:16 1Creatinine 1.4 H 0.4-1.2 mg/dl 01/29/2018 02:16 1Sodium 135 L 137-145 mmol/l 01/29/2018 02:16 1Potassium 4.2 3.5-5.0 mmol/l 01/29/2018 02:16 1Chloride 104 98-107 mmol/l 01/29/2018 02:16 1CO2 27 22-30 mmol/l 01/29/2018 02:16 1Calcium 9.2 8.4-10.2 mg/dl 01/29/2018 02:16 1T Protein 8.1 5.1-8.7 gm/dl 01/29/2018 02:16 1Albumin 3.4 L 3.5-4.6 gm/dl 01/29/2018 02:16 1A/G Ratio 0.7 L 1.1-2.2 % 01/29/2018 02:16 1AST (SGOT) 19 11-36 U/L 01/29/2018 02:16 1ALT (SGPT) 16 11-40 U/L 01/29/2018 02:16 1Alkaline Phos 115 H 47-114 U/L 01/29/2018 02:16 1Total Bilirubin 0.9 0.2-1.2 mg/dl 01/29/2018 02:16 1Globulin 4.7 H 2.3-3.5 gm/dl 01/29/2018 02:16 1Calcium, Corrected 9.7 8.4-10.2 mg/dl 01/29/2018 02:16 Note: Various formulas exist for corrected serum calcium results, each yielding different values. This corrected result was based on the formula: Corrected Calcium=SerumCalcium + [0.8 * ( 4 - SerumAlbumin)] 1EGFR if 47 mL/min/1.73m^2 01/29/2018 02:16 1EGFR if Non- 39 mL/min/1.73m^2 01/29/2018 02:16 Note: Estimated Glomerular Filtration Rate (eGFR) Reference Intervals Decision Points for 18 years and older and average body mass: >=60 Does not exclude kidney disease. 30 - 59 Suggests moderate chronic kidney disease and indicates the need for further investigation including assessment of proteinuria and cardiovascular factors. < 30 Usually indicates a need for referral for assessment and management of chronic kidney failure. * Performing Lab Footnotes:* [address] [place] [address] - [id number] - [facility] [address] - MD: DIRECTOR BRENDEN MAHONEY Order: LACTIC ACID IH Specimen Source: BLOOD Body Site: LOINC Test Result Flag Range Unit Date 1LACTATE 2.3 HH 0.7-2.0 mmol/l 01/29/2018 02:16 * Performing Lab Footnotes:* [address] [place] [address] [id number] - [address] [place] [address] [address] [place] [address] HOWARD Cespedes MD: DIRECTOR BRENDEN MAHONEY Order: PROTIME PT INR Specimen Source: BLOOD Body Site: LOINC Test Result Flag Range Unit Date 1Protime 10.1 9.0-11.8 seconds 01/29/2018 02:16 6301-6 1Coagulation tissue factor induced.INR:RelTime:Pt:PPP:Qn:Coag 1 0.9-1.1 01/29/2018 02:16 Note: INR results are intended ONLY to monitor Oral Anticoagulant therapy in stablized patients. The INR Therapeutic Range is 2.0 - 3.0 Patients with a mechanical heart, the INR Range is 2.5 - 3.5 * Performing Lab Footnotes:* [address] [place] [address] [id number] - [address] [place] [address] [address] [place] [address] HOWARD Cespedes MD: DIRECTOR BRENDEN MAHONEY Order: PTT PARTIAL THROMBOPLASTIN TM Specimen Source: BLOOD Body Site: LOINC Test Result Flag Range Unit Date 1aPTT 25.2 L 25.3-35.7 seconds 01/29/2018 02:16 * Performing Lab Footnotes:* [address] - [id number] - [address] - MD: DIRECTOR BRENDEN MAHONEY Radiology Results Order: [id number] US RENAL & BLADDER (KIDNEYS)* Exam Completion Date:01/31/2018 08:25 Renal ultrasound:History: Hematuria and abdominal pain with distentionThe right kidney measures 10.4 cm, with a cortical thickness of 1.4 cm. The leftkidney ally sures 14.2 cm, with a cortical thickness of 1.8 cm.Parenchymal echogenicity is w ithin normal limits. A 4.2 cm left upper pole renalcyst is present. There is no renal calculus identified. Mild righthydronephrosis is present. There is a 2.4 c m left renal parapelvic cyst. Noperinephric abnormality is identified. The [facility] er was mildly distended but otherwise unremarkable.Impression:1. Mild right hydr onephrosis.2. No renal calculus is identified.3. Left renal cysts.This final rep ort was electronically signed by Dr Griselda Cano MD 01/31/201811:24 AMDictate d By: GRISELDA CANODate: 01/31/2018 11:24 Order: [id number] CT ABDOMEN/PELVIS W/O CONTRAST* Exam Completion Date:01/29/2018 03:25 EXAM: CT ABDOMEN/PELVIS W/O CONTRASTINDICATION: abdominal pain, nausea, vomitin gCOMPARISON: None TECHNIQUE: The abdomen and pelvis were scanned using a multid etector helicalscanner. Coronal and sagittal reformations were obtained. Dose mo dulation,iterative reconstruction, and/or weight based adjustment of the mA/kV w asutilized to reduce radiation dose to as low as reasonably achievable. RoutineP rotocol performed.IV Contrast: 100cc Isovue 300Oral Contrast: NoneFINDINGS:LOWER THORAX: Nonspecific 6 mm nodule right lung baseLIVER: No massesBILIARY: Choleli thiasis without CT findings of acute cholecystitis.SPLEEN: No massesPANCREAS: No massesADRENALS: No nodulesKIDNEYS: No nephroureterolithiasis or hydronephrosis. Simple cyst measuring 4.3cm superior pole of the left kidney. Left renal pelvic cyst. Nonspecific mildperinephric fat stranding.GI TRACT: There is a loop of di stal ileum in a right lower pelvic herniaresulting in obstruction. VESSELS: UnremarkablePERITONEUM/RETROPERITONEUM: No free air or fluidLYMPH NODES: No l ymphadenopathyREPRODUCTIVE ORGANS: NormalBLADDER: Partially decompressed. Bladde r wall appears trabeculated. Bladder domeis within a right inguinal hernia.SOFT TISSUES: Right inguinal hernia containing the bladder dome. Right lowerpelvic he rnia containing bowel, fluid and adjacent inflammation. Largefat-containing umbi lical hernia.BONES: No suspicious bone lesions.IMPRESSION:Right lower pelvic her jose containing a loop of small bowel with resulting moreproximal bowel obstructi on. Small amount of fluid in the hernia sac and adjacentinflammation concerning for strangulation.Right inguinal hernia containing a part of the bladder.Large f at-containing umbilical hernia.Cholelithiasis.This final report was electronical ly signed by Dr Latoya Godinez MD 01/29/2018 4:43AMDictated By: LATOYA GODINEZDate: 01/29/2018 04:43 Vital Signs Vitals Value Date Respiratory Rate 18 01/31/2018 Pulse Rate 72 01/31/2018 O2% BldC Oximetry 98 01/31/2018 Body Temperature 97.2 F 01/31/2018 BP Systolic 152 mmHg 01/31/2018 BP Diastolic 67 mmHg 01/31/2018 Weight Measured 434.53 lbs 01/31/2018 Height 71 in 01/29/2018 BSA (Body Surface Area) 2.08335 01/29/2018 BMI (Body Mass Index) 60.8 01/29/2018 Advance Directives Undefined Advance Directive Directive Type Effective Date Head Filter Press Tender Notes Supporting Document Name Address Phone No Directive Type specified 06/29/2012 21:27 Not Specified Not Specified Not Specified None No Patient does NOT have Living Will Directive Type Effective Date Head Filter Press Tender Notes Supporting Document Name Address Phone No Directive Type specified 01/29/2018 02:49 Not Specified Not Specified Not Specified None No Full Code Directive Type Effective Date Head Filter Press Tender Notes Supporting Document Name Address Phone No Directive Type specified 01/29/2018 10:15 Not Specified Not Specified Not Specified None No Family History * Patient has no knowledge of Family History Plan of Care * No data in the system Procedures Code Code System Procedure Name Target Site Date of Procedure US RENAL & BLADDER (KIDNEYS) 01/31/2018 11:31 CT ABDOMEN/PELVIS W/O CONTRAST 01/29/2018 04:49 [id number] ICD10 SUPPLEMENT ADBOMINAL WALL SYN OPEN 01/29/2018 23737608 SNOMED Repair of umbilical hernia 1999 478005754 SNOMED Tonsillectomy Unknown Encounters Date Code Diagnosis [facility] - [id number] INCISION HERNIA W/OBST W/O GANGRENE Active Immunizations Vaccine Code Code System Vaccine Name Date Status 141 CVX Influenza, seasonal, injectable Completed 33 CVX pneumococcal polysaccharide vaccine Completed Functional Status Code Functional/Cognitive Condition Code System Date Status 598964317 Ability to perform activities of everyday life (observable entity) [facility] 01/29/2018 Active 600121478 Ability to perform personal hygiene activity (observable entity) [facility]2018 Active 685031072 Able to wash self [facility] 01/29/2018 Active 976626305 Ability to manage personal health care (observable entity) [facility] 01/29/2018 Active 440850018 Oriented to person [facility] 01/31/2018 Active 335958753 Stable gait (finding) [facility] 01/31/2018 Active 766252227 No speech problem (situation) [facility] 01/31/2018 Active 259265665 Wears glasses [facility] 01/31/2018 Active 709270892 Firm pressure touch, function (observable entity) [facility] 01/31/2018 Active 328596862 Orientated [facility]OMED-[facility] 01/31/2018 Active 408160418 Orientated SNOMED-CT 01/31/2018 Active 257621421 Orientated SNOMED-CT 01/31/2018 Active Hospital Discharge Instructions * Transfer* EMS Name:* [facility] * MOT Completed* Yes * Notified of Discharge/Transfer* EMS * Family * Report Given On* Current * IV Therapy * Transfer to:* [facility] * Other * Transfer Mode* Ambulance * Transfer to Another Facility* Yes * Receiving Facility* [facility] * Receiving Physician* veronika * Chart Copied* Yes * With Patient
--- OUTSIDE RECORDS SUMMARY | 2018-04-14 15:01 | XMS REPORT | Continuity of Care Document ---
Author Author [facility] Organization [facility] Address [address] [place] [address] ;ext= Care Team Providers Care Technology Advisor Name Role Phone JEFFERSON SAHA Admphys KATIANALANALOURDES SHANTA Attphys ROEL SIMPSON CP BAKARI WARE CP OLU TARANGO CP MANNY CORRALES CP SOLA JENKINS CP Hospital Admission Diagnosis * No data in the System Social History Element Description Code Description Smoking Status Code System Start Date End Date Smoking Status 042876475 Never smoker SNOMED-CT Problems Code Code System Problem Name Start Date End Date Status 302680438 SNOMED-CT Small bowel obstruction 01/29/2018 Active 1400783 SNOMED-CT Acute abdomen 06/01/1999 Active 4267790 SNOMED-CT Priapism 1988 Active Medications RxNorm Medication Dose Route Instructions Indications Start Date End Date Status 102176 Nystatin 100 UNT/MG Topical Powder 1 APPLIC TOPICAL TOPICAL TWICE A DAY (14 Days) Active Allergies Code Code System Allergy Substance Type Reaction Severity Start Date End Date Status RXNorm NKA Drug allergy Unknown Active Results Laboratory Results Order: CBC with MANUAL DIFF Specimen Source: BLOOD Body Site: LOINC Test Result Flag Range Unit Date 99124-8 1Leukocytes^^corrected for nucleated erythrocytes:NCnc:Pt:Bld:Qn:Automated count 11.07 H 4.80-10.80 10^3/ul 02/06/2018 13:47 789-8 1Erythrocytes:NCnc:Pt:Bld:Qn:Automated count 4.39 L 4.70-6.10 10^6/ul 02/06/2018 13:47 718-7 1Hemoglobin:MCnc:Pt:Bld:Qn 14.5 14.0-18.0 gm/dl 02/06/2018 13:47 4544-3 1Hematocrit:VFr:Pt:Bld:Qn:Automated count 43.4 42.0-50.0 % 02/06/2018 13:47 787-2 1Erythrocyte mean corpuscular volume:EntVol:Pt:RBC:Qn:Automated count 98.9 H 80.0-94.0 fL 02/06/2018 13:47 785-6 1Erythrocyte mean corpuscular hemoglobin:EntMass:Pt:RBC:Qn:Automated count 33 H 27.0-31.0 pg 02/06/2018 13:47 786-4 1Erythrocyte mean corpuscular hemoglobin concentration:MCnc:Pt:RBC:Qn:Automated count 33.4 33.0-37.0 gm/dl 02/06/2018 13:47 788-0 1Erythrocyte distribution width:Ratio:Pt:RBC:Qn:Automated count 12.8 11.5-14.5 % 02/06/2018 13:47 777-3 1Platelets:NCnc:Pt:Bld:Qn:Automated count 170 130-400 10^3/ul 02/06/2018 13:47 25297-5 1Platelet mean volume:EntVol:Pt:Bld:Qn:Automated count 10.6 A 7.4-10.4 fL 02/06/2018 13:47 Note: 'NOT MEASURED' RESULTS ARE DISPLAYED WHEN [...] MORPHOLOGY WILL BE NOTED ON THE REPORT. 1Neutrophils 84 H 42-75 10^3/ul 02/06/2018 13:47 1Lymphocytes 7 L 13-42 % 02/06/2018 13:47 1Monocytes 6 4-14 % 02/06/2018 13:47 1Eosinophils 3 1-3 % 02/06/2018 13:47 1RBC Morphology Normochromic 02/06/2018 13:47 * Performing Lab Footnotes:* [address] [place] [address] - [id number] - [address] [facility] [address] [place] [address] [facility] - MD: DIRECTOR BRENDEN JENKINS Order: CBC - HEMOGRAM ONLY Specimen Source: BLOOD Body Site: INC Test Result Flag Range Unit Date 1Leukocytes^^corrected for nucleated erythrocytes:NCnc:Pt:Bld:Qn:Automated count 9.46 4.80-10.80 10^3/ul 02/06/2018 07:25 789-8 1Erythrocytes:NCnc:Pt:Bld:Qn:Automated count 5.76 4.70-6.10 10^6/ul 02/06/2018 07:25 718-7 1Hemoglobin:MCnc:Pt:Bld:Qn 19.2 H 14.0-18.0 gm/dl 02/06/2018 07:25 4544-3 1Hematocrit:VFr:Pt:Bld:Qn:Automated count 55.6 H 42.0-50.0 % 02/06/2018 07:25 787-2 1Erythrocyte mean corpuscular volume:EntVol:Pt:RBC:Qn:Automated count 96.5 H 80.0-94.0 fL 02/06/2018 07:25 785-6 1Erythrocyte mean corpuscular hemoglobin:EntMass:Pt:RBC:Qn:Automated count 33.3 H 27.0-31.0 pg 02/06/2018 07:25 786-4 1Erythrocyte mean corpuscular hemoglobin concentration:MCnc:Pt:RBC:Qn:Automated count 34.5 33.0-37.0 gm/dl 02/06/2018 07:25 788-0 1Erythrocyte distribution width:Ratio:Pt:RBC:Qn:Automated count 12.8 11.5-14.5 % 02/06/2018 07:25 777-3 1Platelets:NCnc:Pt:Bld:Qn:Automated count 117 L 130-400 10^3/ul 02/06/2018 07:25 69938-4 1Platelet mean volume:EntVol:Pt:Bld:Qn:Automated count 11.1 A 7.4-10.4 fL 02/06/2018 07:25 Note: 'NOT MEASURED' RESULTS ARE DISPLAYED WHEN [...] MORPHOLOGY WILL BE NOTED ON THE REPORT. * Performing Lab Footnotes:* [address] [place] [address] - [id number] - [address] [place] [address] [place] - MD: DIRECTOR BRENDEN JENKINS Order: BMP BASIC METABOLIC PANEL Specimen Source: BLOOD Body Site: LOINC Test Result Flag Range Unit Date 1Sodium 144 137-145 mmol/l 02/06/2018 06:19 1Potassium 4 3.5-5.0 mmol/l 02/06/2018 06:19 1Chloride 111 H 98-107 mmol/l 02/06/2018 06:19 1Calcium 8.9 8.4-10.2 mg/dl 02/06/2018 06:19 1CO2 26 22-30 mmol/l 02/06/2018 06:19 1Glucose 109 75-110 mg/dl 02/06/2018 06:19 1BUN 26 H 6.0-17.0 mg/dl 02/06/2018 06:19 1Creatinine 1.1 0.4-1.2 mg/dl 02/06/2018 06:19 1EGFR if >60 mL/min/1.73m^2 02/06/2018 06:19 1EGFR if Non- >60 mL/min/1.73m^2 02/06/2018 06:19 Note: Estimated Glomerular Filtration Rate (eGFR) Reference [...] chronic kidney failure. * Performing Lab Footnotes:* [address] [place] [address] [id number] - [address] [place] [address] [facility] - MD: DIRECTOR BRENDEN JENKINS Order: CBC PLATELET AUTO DIFF Specimen Source: BLOOD Body Site: [facility] Test Result Flag Range Unit Date 1Leukocytes^^corrected for nucleated erythrocytes:NCnc:Pt:Bld:Qn:Automated count 8.08 4.80-10.80 10^3/ul 02/05/2018 06:10 789-8 1Erythrocytes:NCnc:Pt:Bld:Qn:Automated count 4.6 L 4.70-6.10 10^6/ul 02/05/2018 06:10 718-7 1Hemoglobin:MCnc:Pt:Bld:Qn 15.1 14.0-18.0 gm/dl 02/05/2018 06:10 4544-3 1Hematocrit:VFr:Pt:Bld:Qn:Automated count 45.6 42.0-50.0 % 02/05/2018 06:10 787-2 1Erythrocyte mean corpuscular volume:EntVol:Pt:RBC:Qn:Automated count 99.1 H 80.0-94.0 fL 02/05/2018 06:10 785-6 1Erythrocyte mean corpuscular hemoglobin:EntMass:Pt:RBC:Qn:Automated count 32.8 H 27.0-31.0 pg 02/05/2018 06:10 786-4 1Erythrocyte mean corpuscular hemoglobin concentration:MCnc:Pt:RBC:Qn:Automated count 33.1 33.0-37.0 gm/dl 02/05/2018 06:10 788-0 1Erythrocyte distribution width:Ratio:Pt:RBC:Qn:Automated count 12.7 11.5-14.5 % 02/05/2018 06:10 777-3 1Platelets:NCnc:Pt:Bld:Qn:Automated count 167 130-400 10^3/ul 02/05/2018 06:10 16354-3 1Platelet mean volume:EntVol:Pt:Bld:Qn:Automated count 11.1 A 7.4-10.4 fL 02/05/2018 06:10 Note: 'NOT MEASURED' RESULTS ARE DISPLAYED WHEN [...] ON THE REPORT. 770-8 1Neutrophils/100 leukocytes:NFr:Pt:Bld:Qn:Automated count 68.3 42.0-75.0 % 02/05/2018 06:10 736-9 1Lymphocytes/100 leukocytes:NFr:Pt:Bld:Qn:Automated count 11.8 L 13.0-42.0 % 02/05/2018 06:10 5905-5 1Monocytes/100 leukocytes:NFr:Pt:Bld:Qn:Automated count 10.9 4.0-14.0 % 02/05/2018 06:10 713-8 1Eosinophils/100 leukocytes:NFr:Pt:Bld:Qn:Automated count 5.2 H 1.0-5.0 % 02/05/2018 06:10 706-2 1Basophils/100 leukocytes:NFr:Pt:Bld:Qn:Automated count 1.2 0.0-3.0 % 02/05/2018 06:10 1IG% 2.6 H 0.0-0.4 % 02/05/2018 06:10 * Performing Lab Footnotes:* [address] [place] [address] - [id number] - [address] [facility] [address] [facility] [place] [address] [facility] - MD: DIRECTOR BRENDEN JENKINS Order: CMP COMPREHENSIVE METABOLIC PANEL Specimen Source: BLOOD Body Site: LOINC Test Result Flag Range Unit Date 1Sodium 143 137-145 mmol/l 02/05/2018 06:10 1Potassium 4 3.5-5.0 mmol/l 02/05/2018 06:10 1Chloride 112 H 98-107 mmol/l 02/05/2018 06:10 1Calcium 8.9 8.4-10.2 mg/dl 02/05/2018 06:10 1CO2 24 22-30 mmol/l 02/05/2018 06:10 1Glucose 108 75-110 mg/dl 02/05/2018 06:10 1BUN 39 H 6.0-17.0 mg/dl 02/05/2018 06:10 1Creatinine 1.6 H 0.4-1.2 mg/dl 02/05/2018 06:10 1T Protein 6.9 5.1-8.7 gm/dl 02/05/2018 06:10 1Albumin 3.3 L 3.5-4.6 gm/dl 02/05/2018 06:10 1A/G Ratio 0.9 L 1.1-2.2 % 02/05/2018 06:10 1AST (SGOT) 64 H 11-36 U/L 02/05/2018 06:10 1ALT (SGPT) 55 H 11-40 U/L 02/05/2018 06:10 1Alkaline Phos 153 H 47-114 U/L 02/05/2018 06:10 1Total Bilirubin 0.9 0.2-1.2 mg/dl 02/05/2018 06:10 1Globulin 3.6 H 2.3-3.5 gm/dl 02/05/2018 06:10 1Calcium, Corrected 9.5 8.4-10.2 mg/dl 02/05/2018 06:10 Note: Various formulas exist for corrected serum calcium results, each yielding different values. This corrected result was based on the formula: Corrected Calcium=SerumCalcium + [0.8 * ( 4 - SerumAlbumin)] 1EGFR if 55 mL/min/1.73m^2 02/05/2018 06:10 1EGFR if Non- 45 mL/min/1.73m^2 02/05/2018 06:10 Note: Estimated Glomerular Filtration Rate (eGFR) Reference [...] chronic kidney failure. * Performing Lab Footnotes:* [address] [place] [address] - [id number] - [address] [address] - [place] [address] [facility] - MD: DIRECTOR BRENDEN JENKINS Order: MAGNESIUM SERUM Specimen Source: BLOOD Body Site: [facility] Test Result Flag Range Unit Date 1Magnesium 1.6 1.6-2.3 mg/dl 02/05/2018 06:10 * Performing Lab Footnotes:* [address] [place] [address] - [id number] - [address] [place] [address] HOWARD Cespedes MD: DIRECTOR BRENDEN JENKINS Order: PROTIME PT INR Specimen Source: BLOOD Body Site: LOINC Test Result Flag Range Unit Date 5902- 1Coagulation tissue factor induced:Time:Pt:PPP:Qn:Coag 10.8 9.0-11.9 seconds 02/03/2018 12:20 6301-6 1Coagulation tissue factor induced.INR:RelTime:Pt:PPP:Qn:Coag 1 0.9-1.1 02/03/2018 12:20 Note: INR results are intended ONLY to monitor Oral Anticoagulant therapy in stablized patients. The INR Therapeutic Range is 2.0 - 3.0 Patients with a mechanical heart, the INR Range is 2.5 - 3.5 * Performing Lab Footnotes:* [address] [place] [address] [id number] - [address] [place] [address] HOWARD Cespedes MD: DIRECTOR BRENDEN JENKINS Order: PRO BNP B - NATRIURETIC PEPTIDE Specimen Source: BLOOD Body Site: LOINC Test Result Flag Range Unit Date 88416-4 1Natriuretic peptide.B prohormone N-Terminal:MCnc:Pt:Ser/Plas:Qn 9160 H 0-125 pg/ml 01/31/2018 21:54 Note: THE METHODOLOGY FOR DETECTION OF B-NATRIURETIC PEPTIDE HAS BEEN CHANGED TO 'NT pro-BNP'. THE NORMAL RANGES HAVE CHANGED. PLEASE NOTE THAT RANGES ARE DEFINED BY THE AGE OF THE PATIENT. (<75 years old=0-125 pg/ml 75years and older=0-450pg/ml). VALUES ARE NOT INTERCHANGEABLE BETWEEN METHODS. 04-30-2006 * Performing Lab Footnotes:* [address] [place] [address] - [id number] - [address] [facility] [address] [place] [address], [place] [address] [facility] - MD: DIRECTOR BRENDEN JENKINS Order: CULTURE URINE COLONY COUNT Specimen Source: URINE SPECIMENS Body Site: [facility] Test Result Flag Range Unit Date Specimen: Urine Specimens 01/31/2018 21:40 Collected: 01/31/2018 21:40 01/31/2018 21:40 01/31/2018 21:40 Status: Final Last Updated: 02/03/2018 06:21 01/31/2018 21:40 01/31/2018 21:40 01/31/2018 21:40 Culture Result (Final) (Final) 01/31/2018 21:40 No Growth After 48 Hours 01/31/2018 21:40 01/31/2018 21:40 01/31/2018 21:40 Radiology Results Order: [id number] US RENAL & BLADDER (KIDNEYS)* Exam Completion Date:02/03/2018 09:47 Procedure: US RENAL Order Date: 02/03/2018 9:47 AMOrdering Provider: JEFFERSON Escuderoinical Indication: ABDDIST: Abdominal Distentionworsening renal failure , eval for worsening hydronephrosisComparison: January 31, 2018Technique: Real-t dena ultrasonography was obtained over the kidneys and urinarybladder and represe ntative images were recorded.Findings:The right kidney is normal in size and con tour. The right kidney measures 11.1 x6.7 x 6.9 cm in CC, AP, and transverse dim ensions. There is normal renal cortical thickness and echogenicity. Mild right h ydronephrosis.No calculi or masses.The left kidney is normal in size and contour . The left kidney measures 10.1 x6.2 x 6.7 cm in CC, AP, and transverse dimensio ns. There is normal renal cortical thickness and echogenicity.There is a simple cyst arising from the superior pole measuring 4.9 x 4.0 cm.Mild left hydronephro sis.No calculi or masses.The bladder is significantly distended with a total vol ume of 1167 mL.Patient did not have an urge to void.There are no bladder calculi , masses, or focal wall thickening.Impression:1. Significant distention of the b ladder with a volume of 1167 mL. The patienthad no urge to void during the exam. Recommend England catheter placement.2. Mild hydronephrosis bilaterally which is likely secondary to the distendedbladder.3. 4.9 cm simple cyst arising from the superior pole of the left kidney.5. No solid renal masses or calculi.6. Prelimin juliano report relayed by the conductor symphonic orchestra to the attending nurse.This final report w as electronically signed by Dr Doc Jackson MD 02/03/201811:27 AMDictated By: DOC JACKSON.Date: 02/03/2018 11:27 Vital Signs Vitals Value Date Body Temperature 97.4 F 02/08/2018 Pulse Rate 67 02/08/2018 Respiratory Rate 20 02/08/2018 O2% BldC Oximetry 98 02/08/2018 BP Systolic 127 mmHg 02/08/2018 BP Diastolic 58 mmHg 02/08/2018 Weight Measured 440.26 lbs 02/08/2018 Advance Directives Undefined Advance Directive Directive Type Effective Date [employer] Attendant Notes Supporting Document Name Address Phone No Directive Type specified 06/29/2012 21:27 Not Specified Not Specified Not Specified None No Patient does NOT have Living Will Directive Type Effective Date D[employer] Attendant Notes Supporting Document Name Address Phone No Directive Type specified 01/29/2018 02:49 Not Specified Not Specified Not Specified None No Full Code Directive Type Effective Date D[employer] Attendant Notes Supporting Document Name Address Phone No Directive Type specified 01/29/2018 10:15 Not Specified Not Specified Not Specified None No Family History * Patient has no knowledge of Family History Plan of Care * No data in the system Procedures Code Code System Procedure Name Target Site Date of Procedure RENAL & BLADDER (KIDNEYS) 02/03/2018 11:33 Encounters * No data in the system Immunizations Vaccine Code Code System Vaccine Name Date Status 141 CVX Influenza, seasonal, injectable Completed 33 CVX pneumococcal polysaccharide vaccine Completed Functional Status Code Functional/Cognitive Condition Code System Date Status 967515212 Assisting with personal hygiene (procedure) [facility] 01/[facility]2018 Active 501264894 Ability to perform activities of everyday life (observable entity) [facility] 01/31/2018 Active 015572526 Able to wash self [facility] 01/31/2018 Active 346613123 Ability to manage personal health care (observable entity) [facility] 01/31/2018 Active 237252325 Self-care assistance: instrumental activity of daily living (procedure) [facility] 01/31/2018 Active 23382140 Normal vision [facility] 01/31/2018 Active 917872852 Unsteady gait [facility] 02/04/2018 Active 348041780 Stable gait (finding) [facility] 02/05/2018 Active 735793015 Wears glasses [facility] 02/06/2018 Active 514133594 No speech problem (situation) [facility] 02/07/2018 Active 392825102 Firm pressure touch, function (observable entity) [facility] 02/07/2018 Active 872502121 Orientated SNOMED-CT 02/08/2018 Active 850107269 Orientated SNOMED-CT 02/08/2018 Active 737692811 Orientated SNOMED-CT 02/08/2018 Active 088033134 Oriented to person [facility] 02/08/2018 Active Hospital Discharge Instructions * Discharge Instructions* IV Removed Date* 02/08/2018 * Discharge Diagnosis* Small Bowel obstruction, UTI * Physician Name for Follow Up Appt #1* Make appointment with Dr Jenkins in 2 weeks [phone] * Physician Name for Follow Up Appt #2* Get Primary Care Physician and follow up in 2 weeks * Physician Name, Date/Time For Follow Up Appt #3* Keep england in and flush as instructed until appointment with Dr Jenkins * [place] Catheter Insertion Date* 02/05/2018 * Referral Required* None * Activity Level* As tolerated, unrestricted * Medications* Prescriptions Given * Take all medications as listed on your Discharge Medication List as directed * DO NOT STOP taking your medicine(s) until directed by your doctor. * Diet* Regular * Discharge Instructions* Patient education provided * Wound Care * Follow Up Care* Yes * Patient To Schedule * Copy of Advanced Directive given to Patient* No * Pneumonia Vaccine* Refused By Patient * Indwelling Catheter Status* - Medical contraindication * - Not indicated * Indwelling Catheter Not Removed * Pt sent home with indwelling catheter * Discharge Instructions 2* Wound / Incision Care* Keep wound / incision clean and dry * If steri-strips become loose, remove them * Call doctor if temperature is above 101 or if change in wound /incision / drainage is noted * Core Measure / Get with the Guidelines (AMI/HF)* Review Discharge Medications with patient for next dose times * Smoking Cessation Teaching* Patient is nonsmoker or former smoker of greater than one year * Discharge Education* Copy of Discharge Medication List * Notify Physician if You Experience:* Chest discomfort not relieved by 3 Nitroglycerin tabs, 5 minutes apart * Chest discomfort that goes away and comes back * Chest discomfort, squeezing, pressure, fullness * Discomfort in other areas of the upper body, arms, back, neck, jaw, gums * Shortness of breath, with or without chest discomfort * Worsening of condition * Notify Surgeon if You Experience:* Increased warmth around surgical area * Redness or increased pain around surgical area * Red streaks coming from surgical area * Personal Belongings Returned To Patient/Family* Yes * Valuables Returned To Patient/Family* Yes * Pre-Admission Medications Returned To Patient/Family* Yes * Patient/Significant Other Education Acknowledgement* I hereby acknowledge receiving the explanation of the attached instructions. I was able to 'teach back' my health information and education to my nurse and I understand what I was taught as indicated by my signature below. * Person Receiving Discharge Instructions* Eric Shell and * Discharge Instructions Explained To* Patient * Discharge Summary* Accompanied By* Spouse * Discharge Status* Vital Signs Stable * Afebrile * Adequate Diet/Liquid Intake * Adequate Urinary Output * Adequate Bowel Functioning * Activity Tolerated within Physical Limits * Mode Of Discharge* Wheelchair * Patient Transferred/Discharged To* Relatives * Home Health Care Monitoring Required* No * Pain At Discharge* Denies Pain
--- OUTSIDE RECORDS SUMMARY | 2018-04-14 15:02 | XMS REPORT | Continuity of Care Document ---
Author Author [facility] Organization [facility] Address [address] [place] [address] ;ext= Care Team Providers Care Armed Security Officer Name Role Phone EDDIE ORTIZ Admphyramiro EDDIE [facility] Admission Diagnosis * No data in the System Social History Element Description Code Description Smoking Status Code System Start Date End Date Smoking Status 163332008 Never smoker SNOMED-CT Problems Code Code System Problem Name Start Date End Date Status 518598997 SNOMED-CT Falls 02/09/2018 Active 32222221 SNOMED-CT Contusion of lower limb 02/09/2018 Active 690066048 SNOMED-CT Small bowel obstruction 01/29/2018 Active 7622943 SNOMED-CT Acute abdomen 06/01/1999 Active 7890395 SNOMED-CT Priapism 1988 Active Medications RxNorm Medication Dose Route Instructions Indications Start Date End Date Status 294185 Nystatin 100 UNT/MG Topical Powder 1 APPLIC TOPICAL TOPICAL TWICE A DAY (14 Days) No Longer Active Allergies Code Code System Allergy Substance Type Reaction Severity Start Date End Date Status RXNorm NKA Drug allergy Unknown Active Results Radiology Results Order: [id number] XR LEG (TIB/FIB) 2 VIEWS* Exam Completion Date:02/09/2018 01:02 Procedure: XR LEG (TIB/FIB) 2 VIEWS, XR LEG (TIB/FIB) 2 VIEWS Exam Date: February 09, 2018 Ordering Provider: Eddie Zhaoinical Indication: pain s/p fa llComparison: NoneFindings: See impressionImpression: 1. No acute osseous abn ormalities in the bilateral leg (tibial/fibular).2. 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 Diffuse soft tissue silviano a and vascular calcifications throughout the softtissuesThis final report was el ectronically signed by Dr Eddie Figueroa MD02/09/2018 2:17 AMDictated By: Rosalinda BARCLAY: 02/09/2018 02:17 Order: [id number] XR FOOT 2VWS* Exam Completion Date:02/09/2018 01:02 Procedure: XR FOOT 2VWS Exam Date: February 09, 2018 Ordering Provider: EDDIE Cortez Indication: pain s/p fallComparison: NoneFindings: See impr essionImpression: 1. No evidence of acute osseous abnormalities.2. There is d iffuse soft tissue edema throughout the right foot with dorsalfoot predominance. 3. Multiple soft tissue calcifications noted on the lower pretibialdistribution .4. Degenerative changes of the mid and forefootThis final report was electroni lorraine signed by Dr Eddie Figueroa MD02/09/2018 2:18 AMDictated By: Rosalinda PYLE: 02/09/2018 02:18 Order: [id number] XR LEG (TIB/FIB) 2 VIEWS* Exam Completion Date:02/09/2018 01:01 Procedure: XR LEG (TIB/FIB) 2 VIEWS, XR LEG (TIB/FIB) 2 VIEWS Exam Date: February 09, 2018 Ordering Provider: Eddie Cortez Indication: pain s/p fa llComparison: NoneFindings: See impressionImpression: 1. No acute osseous abn ormalities in the bilateral leg (tibial/fibular).2. 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 Diffuse soft tissue silviano a and vascular calcifications throughout the softtissuesThis final report was el ectronically signed by Dr Eddie Figueroa MD02/09/2018 2:17 AMDictated By: Rosalinda BARCLAY: 02/09/2018 02:17 Order: [id number] XR FOOT 2VWS* Exam Completion Date:02/09/2018 01:01 Procedure: XR FOOT 2VWS Exam Date: February 09, 2018 Ordering Provider: Eddie Cortez Indication: pain s/p fallComparison: NoneFindings: See impr essionImpression: 1. No evidence of acute osseous abnormalities.2. There is d iffuse soft tissue edema throughout the right foot with dorsalfoot predominance. 3. Multiple soft tissue calcifications noted on the level of the ankle.4. Dege nerative changes of the mid and forefootThis final report was electronically sig graham by Dr Eddie Figueroa MD02/09/2018 2:13 AMDictated By: BAYRON SANTIAGO ANDate: 02/09/2018 02:13 Vital Signs Vitals Value Date Pulse Rate 83 02/09/2018 Respiratory Rate 17 02/09/2018 O2% BldC Oximetry 97 02/09/2018 BP Systolic 116 mmHg 02/09/2018 BP Diastolic 66 mmHg 02/09/2018 Body Temperature 97.9 F 02/09/2018 Height 72 in 02/09/2018 Weight Measured 451.94 lbs 02/09/2018 BSA (Body Surface Area) 3.13056 02/09/2018 BMI (Body Mass Index) 61.8 02/09/2018 Advance Directives Undefined Advance Directive Directive Type Effective Date Optical Brightener Maker Helper Notes Supporting Document Name Address Phone No Directive Type specified 06/29/2012 21:27 Not Specified Not Specified Not Specified None No Patient does NOT have Living Will Directive Type Effective Date Optical Brightener Maker Helper Notes Supporting Document Name Address Phone No Directive Type specified 01/29/2018 02:49 Not Specified Not Specified Not Specified None No Full Code Directive Type Effective Date Optical Brightener Maker Helper Notes Supporting Document Name Address Phone No Directive Type specified 01/29/2018 10:15 Not Specified Not Specified Not Specified None No Family History * Patient has no knowledge of Family History Plan of Care * No data in the system Procedures Code Code System Procedure Name Target Site Date of Procedure XR FOOT 2VWS 02/09/2018 02:25 Encounters * No data in the system Immunizations Vaccine Code Code System Vaccine Name Date Status 141 CVX Influenza, seasonal, injectable Completed 33 CVX pneumococcal polysaccharide vaccine Completed PT NOT UP TO DATE FLU Completed Functional Status * No data in the system Hospital Discharge Instructions * Discharge Instructions 2* Discharge Diagnosis* fall prevention, contusion in adults * Important Information* Consult your physician or return to the Emergency Department immediately if worse, if not better as expected, or if any problems arise. * Please understand that you have received care only on an emergency basis. If your condition does not improve, you should call your personal physician for follow-up care. If you do not have a physician, you may call the referred physician listed. * If you have questions about your care or these discharge instructions, you may call the Emergency Department. Please take your discharge paperwork with you to any follow-up appointments. * Follow Up Care* No * Follow-Up With:* Primary Care Physician * Activity Level* As tolerated, unrestricted * Diet* Regular * Prescriptions Given Via:* Printed and given to patient/caregiver. * Patient Teaching* Patient education provided
[2018-04-14] MEDS ORDERED: KETOROLAC TROMETHAMINE 30 MG/ML VIAL IV STA (16:31)
--- NOTE | 2018-04-14 16:37 | NUR ---
Attempted to irrigate Morgan catheter without success. notified and urology has been called aqnd informed. Patient states he does feel pressure 318 mL's noted on bladder scanner.
[2018-04-14 16:43] LABS: BASOPHILS % 0.4 % (0.0-1.0); EOSINOPHILS # (AUTO) 0.1 (0.0-0.4); EOSINOPHILS % 0.8 % (0.0-6.0); HEMATOCRIT 45.1 % (38.2-49.6); HEMOGLOBIN 15.9 g/dL (14.0-18.0); LYMPHOCYTES # (AUTO) 1.8 (1.0-3.2); LYMPHOCYTES % 18.3 % (18.0-39.1); MEAN CORPUSCULAR HEMOGLOBIN 33.8 pg (28-32); MEAN CORPUSCULAR HGB CONC 35.3 g/dL (31-35); MEAN CORPUSCULAR VOLUME 95.8 fL (81-99); MONOCYTES # (AUTO) 0.8 (0.2-0.8); NEUTROPHILS # (AUTO) 7.1 (2.1-6.9); NEUTROPHILS % 72.2 % (38.7-80.0); PLATELET COUNT 252 x10e3/uL (140-360); RED BLOOD COUNT 4.71 x10e6/uL (4.3-5.7); RED CELL DISTRIBUTION WIDTH 13.2 % (11.7-14.4)
[2018-04-14 16:57] LABS: ANION GAP 17.8 mmol/L (8-16); CALCIUM 9.6 mg/dL (8.4-10.2); CREATININE, SERUM 1.44 mg/dL (0.72-1.25); POTASSIUM 3.8 mmol/L (3.5-5.1)
[2018-04-14] MEDS ORDERED: DIATRIZOATE MEGL/DIATRIZOA SOD 30 ML BTL PO ONE (16:59)
[2018-04-14] MEDS ORDERED: ONDANSETRON HCL INJ 2 MG/ML VIAL IV ONE (17:00)
[2018-04-14] MEDS ORDERED: HYDROMORPHONE 2MG/ML 2 MG/ML ML IV ONE (17:00)
[2018-04-14] MEDS ORDERED: LORAZEPAM INJ 2 MG/ML VIAL IV ONE (17:00)
[2018-04-14] MEDS ORDERED: SODIUM CHLORIDE 0.9% 1000ML 1,000 ML IV SCH (18:45)
--- NOTE | 2018-04-14 18:47 | NUR ---
Successful irrigation by Dr. Gonzales. 1150 mL's noted after obstruction cleared from current Morgan catheter.
--- NOTE | 2018-04-14 18:55 | NUR ---
WALKING ROUND DOWN WITH RODRIGO ALLEN
[2018-04-14 19:05] LABS: CLARITY,URINE CLOUDY (CLEAR); COLOR,URINE ORANGE (YELLOW); KETONES,URINE NEGATIVE (NEGATIVE); LEUKOCYTE ESTERASE ,URINE 2+ (NEGATIVE); NITRITE,URINE POSITIVE (NEGATIVE); PROTEIN,URINE DIPSTICK 2+ (NEGATIVE); URINE UROBILINOGEN 0.2 mg/dL (0.2 - 1)
[2018-04-14 19:06] LABS: BILIRUBIN,URINE NEGATIVE (NEGATIVE)
[2018-04-14 19:12] LABS: BACTERIA,URINE MODERATE /HPF; EPITHELIAL CELLS,URINE FEW /LPF; RBC,URINE >50 /HPF (0-5); WBC,URINE (MAN) 21-50 /HPF (0-5)
[2018-04-14] MEDS ORDERED: HYDROMORPHONE 2MG/ML 2 MG/ML ML IV PRN (19:30)
[2018-04-14] MEDS ORDERED: ONDANSETRON HCL INJ 2 MG/ML VIAL IV PRN (19:30)
--- NOTE | 2018-04-14 20:19 | Diagnostic Imaging Report ---
EXAM: CT PELVIS WO DATE: 04/14/2018 5:03 PM INDICATION: Lost Morgan COMPARISON: None TECHNIQUE: The pelvis was scanned using a multidetector helical scanner. Coronal and sagittal reformations were obtained. CT low dose techniques were utilized, as applicable. IV Contrast: 0 ml Isovue 300/370 FINDINGS: Lack of IV contrast and excessive noise related to body habitus decrease sensitivity in evaluating pelvic organs. GI TRACT: No wall thickening or evidence of obstruction. VESSELS: Unremarkable PERITONEUM/RETROPERITONEUM: No free air or fluid LYMPH NODES: No lymphadenopathy REPRODUCTIVE ORGANS/BLADDER: A Morgan catheter is seen within the bladder. The bladder is distended with perivesicular inflammatory changes. Mild right hydronephrosis and visualized left ureterectasis with. Ureteral inflammatory changes. Prostatomegaly with calcifications. SOFT TISSUES: No acute findings BONES: Degenerative changes are noted. IMPRESSION: 1. Morgan seen in the bladder, which is distended in keeping with reported malfunction. Mild right hydronephrosis and visualized left ureterectasis related to bladder distention. 2. Perivesicular inflammatory changes related to known cystitis. Visualized periureteral inflammatory changes could indicate ascending infection/pyelitis. Signed by: Dr Cristine Moore MD on 04/14/2018 8:15 PM
--- NOTE | 2018-04-14 21:00 | NUR ---
patient is a new admit that arrived via stretcher. patient is awake and talking. patient has a england catheter that is patent and urine is flowing. patient has been helped into bed. bed is in lowest position and call chambers is within reach. will continue to monitor patient.
[2018-04-14 21:07] VITALS: BP 139/69
[2018-04-14 21:30] VITALS: BP 139/69
[2018-04-14] MEDS: SODIUM CHLORIDE 0.9% 1000ML 1,000 ML IV SCH (22:43)
[2018-04-14] MEDS ORDERED: FUROSEMIDE40 MG PO (22:47)
[2018-04-14] MEDS ORDERED: eliquis PO (22:47)
[2018-04-15] VITALS: BP 100/58
[2018-04-15] MEDS: PIPER-TAZ 3.375 GM 50 ML IV SCH ×4 (00:39→17:30)
[2018-04-15 04:00] VITALS: BP 130/62
[2018-04-15 05:17] LABS: BASOPHILS % 0.4 % (0.0-1.0); EOSINOPHILS # (AUTO) 0.2 (0.0-0.4); EOSINOPHILS % 3.1 % (0.0-6.0); HEMATOCRIT 41.6 % (38.2-49.6); HEMOGLOBIN 14.2 g/dL (14.0-18.0); LYMPHOCYTES # (AUTO) 1.6 (1.0-3.2); LYMPHOCYTES % 23.3 % (18.0-39.1); MEAN CORPUSCULAR HEMOGLOBIN 33.6 pg (28-32); MEAN CORPUSCULAR HGB CONC 34.1 g/dL (31-35); MEAN CORPUSCULAR VOLUME 98.3 fL (81-99); MONOCYTES # (AUTO) 0.9 (0.2-0.8); MONOCYTES % 12.6 % (4.4-11.3); NEUTROPHILS # (AUTO) 4.1 (2.1-6.9); NEUTROPHILS % 60.3 % (38.7-80.0); PLATELET COUNT 221 x10e3/uL (140-360); RED BLOOD COUNT 4.23 x10e6/uL (4.3-5.7); RED CELL DISTRIBUTION WIDTH 13.6 % (11.7-14.4)
[2018-04-15 05:43] LABS: ANION GAP 11.5 mmol/L (8-16); CALCIUM 8.8 mg/dL (8.4-10.2); CREATININE, SERUM 1.28 mg/dL (0.72-1.25); POTASSIUM 3.5 mmol/L (3.5-5.1)
--- NOTE | 2018-04-15 06:47 | NUR ---
answering service for consulted doctor notified of routine consultations. Message will be relayed to MD. Will continue to monitor patient.
--- NOTE | 2018-04-15 07:12 | NUR ---
Consulted physician called back and gave new orders for patient to be put on NPO. Will notify patient and will continue to monitor patient.
--- NOTE | 2018-04-15 07:20 | NUR ---
pt alert and sitting upright in bed, family members at bedside, pt had no distress noted at this time. no c/o pain when asked, england intact pt call light in reach will cont to monitor.
[2018-04-15 08:00] VITALS: BP 111/53
[2018-04-15] MEDS: SODIUM CHLORIDE 0.9% 1000ML 1,000 ML IV SCH (09:31)
--- NOTE | 2018-04-15 10:45 | NUR ---
IRRIGATED PT CATHETER PT TOLERATED WELL.
[2018-04-15 12:09] VITALS: BP 120/57
[2018-04-15 13:14] LABS: CHOL/HDL RATIO 3.9 (3.9-4.7)
--- NOTE | 2018-04-15 14:20 | NUR ---
PT UP TO BEDSIDE AND AMB TO REST ROOM DRAINAGE OF URINE IN TUBE OF RUBIO BAG. WILL CONT TO MONITOR.
[2018-04-15 16:00] VITALS: BP 145/68
[2018-04-15] MEDS ORDERED: FAMOTIDINE 20 MG TAB PO SCH (16:30)
[2018-04-15] MEDS ORDERED: FAMOTIDINE20 MG PO (18:58)
[2018-04-15] MEDS ORDERED: LEVAQUIN500 MG PO (18:58)
--- NOTE | 2018-04-15 19:18 | NUR ---
REPORT GIVEN TO ONCOMING NURSE
--- NOTE | 2018-04-15 19:22 | Discharge Summary ---
PRINCIPAL DIAGNOSES 1. Urinary retention. 2. Complicated catheter-associated urinary tract infection, present on admission. 3. Acute kidney injury. 4. Super morbid obesity, body mas index 58. 5. Right hydronephrosis, which is mild. SECONDARY DIAGNOSIS: Urinary retention. CHIEF COMPLAINT AND HISTORY OF PRESENT ILLNESS: Please refer to H and P. HOSPITAL COURSE: Patient underwent Morgan change by urology, treated with Zosyn, and will be discharged home with Levaquin for 14 days for complicated catheter-associated urinary tract infection, present on admission. He had acute kidney injury, but does have some degree of chronic kidney disease and needs followup as outpatient. Patient is doing better and currently appropriate for discharge. He needs to lose weight as outpatient. DISCHARGE MEDICATIONS: Per electronic medical record. FOLLOWUP 1. Follow up with me in 1 week. 2. Follow up with Dr. Law in 2 weeks. KAL YOUNG MD Job#: [id number] [facility]
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
--- NOTE | 2018-04-15 20:24 | NUR ---
Pt discharged. Pt A&O and in no apparent distress. Paperwork signed and pt verbalized understanding. Pt IV discontinued and paperwork and prescriptions given. Pt escorted to ER pickup area by staff member and pts spouse drove pt home.
--- NOTE | 2018-04-16 14:29 | Operative Report ---
DATE OF PROCEDURE: April 15, 2018 SERVICE: Urology. INDICATIONS: This is a 72-year-old patient who has a malfunction of Morgan catheter. The patient is morbidly obese and there is no access to the . It is being embedded in sets. Patient does have a Morgan catheter in place. PROCEDURE: A guidewire was passed through the existing Morgan and advanced into the bladder following this was possible to remove the Morgan and a 20-Mexican walker river-tip catheter was inserted over the wire and advanced all the way into the bladder inflated with 15 mL of water. Morgan appeared to be functioning, was irrigated and tested and functioning well. This was connected to the collection device. Job#: [id number] LAURA
== END 2018-04-15 20:23 | disposition home or self-care (01) ==
LOC: ER 14:58 → ERHOLD 20:09 → IMCU 21:04
PROVIDERS: ADMIT Internal Medicine; ATTEND Internal Medicine
DX: T83.511A Infection and inflammatory reaction due to indwelling urethral catheter, initial encounter (principal); N40.1 Benign prostatic hyperplasia with lower urinary tract symptoms; R33.8 Other retention of urine; E66.01 Morbid (severe) obesity due to excess calories; Z68.43 Body mass index [BMI] 50.0-59.9, adult; N13.30 Unspecified hydronephrosis; N18.9 Chronic kidney disease, unspecified; N17.9 Acute kidney failure, unspecified
CPT/HCPCS: 36415 ×2; 51703; 72192; 80048 ×2; 80061; 81001; 83036; 85025 ×2; 87086; 99283; G0378 ×2; J1170; J2405; J2543; J7030; Q9663

== ENCOUNTER 2018-05-02 10:19 | Emergency (ER) | payer MEDICARE, OTHER ==
[~2018-05-02] VITALS: Ht 180.3 cm; Wt 186.9 kg
[~2018-05-02 10:19] MED LIST: FAMOTIDINE20 MG PO; FUROSEMIDE40 MG PO; LEVAQUIN500 MG PO; eliquis PO
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
[2018-05-02] MEDS ORDERED: ONDANSETRON HCL INJ 2 MG/ML VIAL IV STA (11:22)
[2018-05-02] MEDS ORDERED: MORPHINE SULFATE 5 MG/ML VIAL IV ONE (11:30)
--- NOTE | 2018-05-02 11:30 | NUR ---
ATTEMPTED TO DO A MANUAL FLUSH/IRRIGATION OF RUBIO CATH WITH ASSISTANCE FROM DR. HAMPTON AND RODRIGO [place]. SEVERAL ATTEMPTS WERE UNSUCCESSFUL. DR. HAMPTON HAS PLACED CALL TO DR. WINTER PENDING FURTHER ORDERS AT THIS TIME AND PT AWARE OF THIS.
[2018-05-02] MEDS ORDERED: MORPHINE SULFATE INJ 4 MG/ML INJ IV NR (11:45)
--- NOTE | 2018-05-02 11:50 | NUR ---
ORDER GIVEN FOR IR CONSULT TO PLACE SUPRAPUBIC RUBIO CATH. CONSENT SIGNED BY PT PENDING TIME FOR PROCEDURE AND PT/ AWARE OF THIS.
[2018-05-02 12:19] LABS: BASOPHILS # (AUTO) 0.1 (0.0-0.1); BASOPHILS % 0.7 % (0.0-1.0); EOSINOPHILS # (AUTO) 0.1 (0.0-0.4); EOSINOPHILS % 1.2 % (0.0-6.0); HEMATOCRIT 47.7 % (38.2-49.6); HEMOGLOBIN 17.1 g/dL (14.0-18.0); LYMPHOCYTES # (AUTO) 1.6 (1.0-3.2); LYMPHOCYTES % 23.5 % (18.0-39.1); MEAN CORPUSCULAR HEMOGLOBIN 33.9 pg (28-32); MEAN CORPUSCULAR HGB CONC 35.8 g/dL (31-35); MEAN CORPUSCULAR VOLUME 94.6 fL (81-99); MONOCYTES # (AUTO) 0.6 (0.2-0.8); MONOCYTES % 9.1 % (4.4-11.3); NEUTROPHILS # (AUTO) 4.5 (2.1-6.9); NEUTROPHILS % 65.1 % (38.7-80.0); PLATELET COUNT 246 x10e3/uL (140-360); RED BLOOD COUNT 5.04 x10e6/uL (4.3-5.7)
[2018-05-02 12:23] LABS: PROTHROMBIN TIME 14.1 seconds (11.9-14.5)
[2018-05-02 12:24] LABS: PARTIAL THROMBOPLASTIN TIME 30.3 seconds (23.8-35.5)
--- NOTE | 2018-05-02 12:45 | NUR ---
SUPRAPUBIC CATH PLACEMENT CANCELLED DUE TO PT BEING TOO LARGE FOR PROCEDURE TABLE. DR. HAMPTON INFORMED AND NOW CALLED PLACED TO DR. WINTER FOR FURTHER ORDERS. PT/ INFORMED OF THIS DELAY TO GET RUBIO CATH CHANGED.
--- NOTE | 2018-05-02 13:40 | NUR ---
DR. Sergei WINTER AT BEDSIDE TO CHANGE OUT RUBIO CATH.
[2018-05-02 14:12] LABS: BILIRUBIN,URINE NEGATIVE (NEGATIVE); CLARITY,URINE SL CLOUDY (CLEAR); COLOR,URINE AMBER (YELLOW); KETONES,URINE NEGATIVE (NEGATIVE); LEUKOCYTE ESTERASE ,URINE 1+ (NEGATIVE); NITRITE,URINE NEGATIVE (NEGATIVE); PROTEIN,URINE DIPSTICK 1+ (NEGATIVE); URINE UROBILINOGEN 0.2 mg/dL (0.2 - 1)
[2018-05-02 14:24] LABS: AMORPHOUS SEDIMENT,URINE MODERATE (FEW); BACTERIA,URINE MANY /HPF
--- NOTE | 2018-05-02 14:25 | NUR ---
RUBIO CATH 20 FR 10 ML BALLOON CHANGES OUT BY DR. Sergei WINTER WITHOUT ANY DIFFICULTY. RUBIO HAS DRAINED 900 ML OF DARK ORANGE URINE OUT. PT DID HAVE HEMATURIA WITH SMALL AMOUNT OF BLOOD CLOTS WHICH IS STARTING TO CLEAR. RUBIO CATH IRRIGATED MANUAL WITH 750 ML OF NS WITHOUT ANY DIFFICULTY, PT TOLERATED WELL. PT STATES DECREASED BLADDER PRESSURE AT THIS TIME. RUBIO CATH DRAINAGE HAS SLOWED DOWN AND PT NOW DRINKING FLUIDS TO BE SURE CATHETER KEEPS DRAINING. INFORMED DR. HAMPTON OF THIS. CONTINUING TO MONITOR FLOW AND WILL IRRIGATE NEEDED UNTIL DISCHARGED FROM ED.
--- NOTE | 2018-05-02 15:20 | NUR ---
RUBIO CATH CONTINUES TO DRAIN WITHOUT ANY DIFFICULTY INTO BEDSIDE DRAINAGE BAG. URINE HAS CLEARED TO YELLOW COLOR. DR. HAMPTON AWARE AND PT BEING DISCHARGED HOME.
[2018-05-02 15:28] VITALS: BP 150/78
[2018-05-02] MEDS ORDERED: HYDROMORPHONE 2MG/ML 2 MG/ML ML IV ONE ×2 (16:30→18:30)
--- NOTE | 2018-05-02 21:16 | Consultation ---
DATE OF CONSULTATION: May 02, 2018 SERVICE: Urology. REASON FOR CONSULTATION: Patient is morbidly obese, has a Morgan catheter in place. The ER was concerned about ability to change it. Patient did have previous difficulty changing and placing the catheter and therefore I was consulted. PAST MEDICAL HISTORY: Significant for abdominal surgery at which time a 12-Tunisian Morgan was placed by another urologist in another facility. This was eventually replaced with a 20-Tunisian [place] tip catheter by me. 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 ALLERGY TO MEDICATIONS: SEE MAR. REVIEW OF SYSTEMS: Twelve systems reviewed. Except what is related with obstruction of the Morgan and inability to irrigate it at home all others were negative. FAMILY HISTORY: Noncontributory. PHYSICAL EXAMINATION GENERAL: Patient is alert and oriented x3. VITALS: Blood pressure 130/85, pulse 88, respirations 18, temperature 97.8. HEENT: Head symmetric. Eyes normal movement. NECK: No JVD. No masses. CHEST: Clear. HEART: Regular. ABDOMEN: Soft. EXTERNAL GENITALIA: Concealed penis. It cannot be exposed. No testicular masses. EXTREMITIES: No edema of lower extremities. IMPRESSION 1. Urinary retention due to malfunction of the Morgan catheter. 2. Morbid obesity. 3. Urinary tract infections. PLAN: I am planning to change the Morgan catheter. Hope that I will be able to do it without requiring anesthesia. Thank you for the consult. Job#: [id number] NATALIE
== END 2018-05-02 15:50 | disposition home or self-care (01) ==
LOC: ER 10:19
DX: Z46.6 Encounter for fitting and adjustment of urinary device (principal); R30.0 Dysuria; N30.90 Cystitis, unspecified without hematuria; Z87.891 Personal history of nicotine dependence
CPT/HCPCS: 36415; 51702; 81001; 85025; 85610; 85730; 99284; J2270; J2405

== ENCOUNTER 2018-05-20 09:42 | Emergency (ER) | payer OTHER ==
[~2018-05-20] VITALS: Ht 180.3 cm; Wt 186.9 kg
--- NOTE | 2018-05-20 10:14 | NUR ---
Morgan irrigated and unclogged at this time. MD notified.
[2018-05-20] MEDS ORDERED: FUROSEMIDE INJ 10 MG/ML 4 ML VIAL IV ONE (10:45)
[2018-05-20 11:09] LABS: BILIRUBIN,URINE NEGATIVE (NEGATIVE); CLARITY,URINE CLEAR (CLEAR); COLOR,URINE STRAW (YELLOW); KETONES,URINE NEGATIVE (NEGATIVE); LEUKOCYTE ESTERASE ,URINE 2+ (NEGATIVE); NITRITE,URINE NEGATIVE (NEGATIVE); PROTEIN,URINE DIPSTICK NEGATIVE (NEGATIVE); URINE UROBILINOGEN 0.2 mg/dL (0.2 - 1)
[2018-05-20 11:13] LABS: AMORPHOUS SEDIMENT,URINE MODERATE (FEW); RBC,URINE 0-5 /HPF (0-5)
[2018-05-20 11:24] LABS: ANION GAP 17.8 mmol/L (8-16); CALCIUM 9.7 mg/dL (8.4-10.2); CREATININE, SERUM 1.22 mg/dL (0.72-1.25); POTASSIUM 3.8 mmol/L (3.5-5.1)
[2018-05-20] MEDS ORDERED: CEFTRIAXONE SOD 1 GM/NS 50 ML 50 ML IV ONE (12:00)
[2018-05-20 13:25] VITALS: BP 111/73
[2018-05-20] MEDS ORDERED: HYDROMORPHONE 2MG/ML 2 MG/ML ML IV ONE ×2 (16:00→18:30)
== END 2018-05-20 14:00 | disposition home or self-care (01) ==
LOC: ER 09:42
DX: Z46.6 Encounter for fitting and adjustment of urinary device (principal); N30.90 Cystitis, unspecified without hematuria; R60.9 Edema, unspecified; R73.9 Hyperglycemia, unspecified; Z86.711 Personal history of pulmonary embolism; Z86.718 Personal history of other venous thrombosis and embolism
CPT/HCPCS: 36415; 80048; 81001; 99283; J0696; J1170; J1940

== ENCOUNTER 2018-05-23 09:46 | Emergency (ER) | payer OTHER ==
[~2018-05-23] VITALS: Ht 180.3 cm; Wt 186.9 kg
--- NOTE | 2018-05-23 10:40 | NUR ---
URINARY CATHETER IRRIAGATED, MODERATE RESISTANCE, ABLE TO FLUSH SMALL AMOUNT, NEW DRAINAGE BAGGED APPLIED, SCANT OUTPUT NOTED IN DRAINGE BAG TUBBING AFTER IRRIGATION. PATIENT REPORTS DECREASED OUTPUT TODAY.
--- NOTE | 2018-05-23 10:45 | NUR ---
DR HAMPTON AT BEDSIDE FOR PATIENT EVAL. NO SIGNS OF ACUTE DISTRESS NOTED AT THIS TIME.
--- NOTE | 2018-05-23 11:45 | NUR ---
DR Sergei WINTER AT BEDSIDE FOR PATIENT EVAL AND URINARY CATHETER EXCHANGE. NO SIGNS OF ACUTE DISTRESS NOTED AT THIS TIME.
--- NOTE | 2018-05-23 11:45 | NUR ---
20 WOLOF [place] TIP CATHETER PLACED BY DR Sergei WINTER. CURRENT 20 WOLOF INDWELLING CATHETER EXCHANGED WITH GUIDE WIRE, TOLERATED WELL. PATENT AND DRAINING. NO SIGNS OF ACUTE DISTRESS NOTED AT THIS TIME.
[2018-05-23] MEDS ORDERED: MACROBID 100 M100 MG PO (12:05)
--- NOTE | 2018-05-23 12:05 | NUR ---
PATIENT AND FAMILY STATES CATHETER "IS NOT DRAINING ENOUGH" AFTER CATHETER EXCHANGE. EDUCATED PATIENT AND FAMILY ON RUBIO CATHETER CARE AND DRAINAGE, VERBALIZED UNDERSTANDING. CATHETER PATENT AND DRAINAGE NOTED IN TUBING AND DRAINAGE BAG. NO SIGNS OF ACUTE DISTRESS NOTED AT THIS TIME.
[2018-05-23 12:53] VITALS: BP 146/70
--- NOTE | 2018-05-24 08:12 | Consultation ---
DATE OF CONSULTATION: May 23, 2018 INITIAL VISIT IN THE ER SERVICE: Urology. ADMITTING PHYSICIAN: Emergency room, Dr. Kimbrough REASON FOR THE VISIT: Inability to change Morgan catheter and malfunction Morgan. HISTORY: This is a 72-year-old patient who is well known to me for urinary retention. Patient is morbidly obese. The penis is embedded in fat and cannot be exposed. He does have a the [place]-tip Morgan catheter 20-Uk[address] in place. The catheter became malfunctioning and in spite of repeat irrigation by his , it did not operate well. The staff was aware about the problem and decided to consult us. They would not be able to change the Morgan, which is quite complicated. PAST MEDICAL HISTORY: Significant for: 1. Urinary retention. 2. Back surgery. 3. Recent chronic Morgan catheter. 4. 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 Past medical history as mentioned. ALLERGY TO MEDICATIONS: See MAR. FAMILY HISTORY: Noncontributory. PHYSICAL EXAMINATION: GENERAL: Patient is alert and oriented x3. VITAL SIGNS: Blood pressure 130/84, pulse 88, temperature 37.1, respirations 18. HEAD: Symmetric. EYES: Normal movement. NECK: No JVD. No masses. CHEST: Clear. HEART: Regular. ABDOMEN: Soft, quite large. : External genitalia, unable to expose the penis. Morgan catheter in place, appears to be blocked. LOWER EXTREMITIES: Moves all. LABORATORY DATA: Still pending. IMPRESSION: 1. History of urethral stricture. 2. History of urinary retention. 3. Morbid obesity. 4. Concealed penis. PLAN: I am planning to change the Morgan catheter over a guidewire, I was able to do it in the past. Hope I will be able to do it again. In the future, patient will need some surgical procedure to expose the penis. Thank you. Will follow with my plan. Job#: [id number]
== END 2018-05-23 12:56 | disposition home or self-care (01) ==
LOC: ER 09:46
DX: R33.9 Retention of urine, unspecified (principal); E66.01 Morbid (severe) obesity due to excess calories; Q55.64 Hidden penis; Z86.718 Personal history of other venous thrombosis and embolism
CPT/HCPCS: 51700; 99283

== ENCOUNTER 2018-06-14 14:51 | Emergency (ER) | payer OTHER ==
[~2018-06-14] VITALS: Ht 180.3 cm; Wt 186.9 kg
[~2018-06-14 14:51] MED LIST changes: +MACROBID 100 M100 MG PO
--- NOTE | 2018-06-14 15:39 | NUR ---
DR. Sergei VELASQUEZ IN TO SEE PATIENT. DR. VELASQUEZ REPLACED JOANNE THEN DEPARTED ED. NO NEW ORDERS. ER MD DID NOT SPEAK WITH DR. VELASQUEZ ABOUT DISCHARGE INSTUCTIONS. PAGED DR. VELASQUEZ FOR ER MD TO SPEAK WITH.
--- NOTE | 2018-06-14 20:21 | History and Physical ---
SERVICE: Urology. HISTORY OF PRESENT ILLNESS: This is a 72-year-old patient presented to the ER for malfunction and blockage of a Morgan catheter. He does have a chronic indwelling Morgan catheter. He has retracted penis. The patient did have a history of urinary retention and BPH. He is morbidly obese. ER cannot change the Morgan catheter due to inability to reach the glans penis. PAST MEDICAL HISTORY: Significant for; 1. Abdominal surgery. 2. Morbid obesity. 3. Urinary retention. 4. Urethral stricture. FAMILY HISTORY: Noncontributory. PHYSICAL EXAMINATION GENERAL: Alert and oriented. VITAL SIGNS: Blood pressure 130/80, pulse 88. HEENT: Head symmetric. Eyes; normal movement. NECK: No JVD. No masses. CHEST: Clear. ABDOMEN: Morbidly obese. : External genitalia unable to palpate and bring out the glans penis and no masses. Extremities: Lower extremity with edema. IMPRESSION 1. Malfunction of Morgan catheter. 2. Prostatism. 3. Benign prostatic hypertrophy. 4. Morbid obesity. PLAN: I am planning to change the Morgan catheter, it seems to be blocked and it is not possible to irrigate. PROCEDURE: The Morgan catheter was changed using a guidewire that was inserted into the old Morgan advanced into the bladder. The Morgan was then removed and [place]-tip type of Morgan catheter 20-Albanian 5 mL was inserted. The Morgan was inflated with 10 mL of water. Bladder was irrigated. The Morgan appears to be functioning well. We will be followed this outpatient. Job#: [id number] OLRI
== END 2018-06-14 16:38 | disposition home or self-care (01) ==
LOC: ER 14:51
DX: T83.018A Breakdown (mechanical) of other urinary catheter, initial encounter (principal); N40.0 Benign prostatic hyperplasia without lower urinary tract symptoms; E66.01 Morbid (severe) obesity due to excess calories
CPT/HCPCS: 99282

== ENCOUNTER 2018-06-30 10:20 | Emergency (ER) | payer OTHER ==
[~2018-06-30] VITALS: Ht 180.3 cm; Wt 186.9 kg
[2018-06-30] MEDS ORDERED: ACETAMINOPHEN/CODEINE 300MG - 30MG TAB PO ONE (12:30)
[2018-06-30] MEDS ORDERED: BACTRIM DS TAB1 EACH PO ×2 (13:35→13:41)
[2018-06-30] MEDS ORDERED: FLUCONAZOLE100 MG PO (13:35)
[2018-06-30 14:18] VITALS: BP 122/62
[2018-06-30 15:24] LABS: BILIRUBIN,URINE NEGATIVE (NEGATIVE); CLARITY,URINE CLOUDY (CLEAR); COLOR,URINE YELLOW (YELLOW); KETONES,URINE NEGATIVE (NEGATIVE); LEUKOCYTE ESTERASE ,URINE 1+ (NEGATIVE); NITRITE,URINE NEGATIVE (NEGATIVE); PROTEIN,URINE DIPSTICK TRACE (NEGATIVE); URINE UROBILINOGEN 0.2 mg/dL (0.2 - 1)
[2018-06-30 15:25] LABS: BACTERIA,URINE MODERATE /HPF; EPITHELIAL CELLS,URINE FEW /LPF; RBC,URINE 21-50 /HPF (0-5)
== END 2018-06-30 14:59 | disposition home or self-care (01) ==
LOC: ER 10:20
DX: Z46.6 Encounter for fitting and adjustment of urinary device (principal); R10.30 Lower abdominal pain, unspecified; E66.01 Morbid (severe) obesity due to excess calories
CPT/HCPCS: 81001; 87086; 99283

== ENCOUNTER 2018-07-16 14:12 | Emergency (ER) | payer MEDICARE, OTHER ==
[~2018-07-16] VITALS: Ht 180.3 cm; Wt 186.9 kg
[~2018-07-16 14:12] MED LIST changes: +BACTRIM DS TAB1 EACH PO; +FLUCONAZOLE100 MG PO
[2018-07-16] MEDS ORDERED: HYDROCODONE/APAP 5MG-325MG TAB PO NR (16:15)
[2018-07-16 19:00] VITALS: BP 111/62
--- NOTE | 2018-07-17 01:35 | Consultation ---
DATE OF CONSULTATION: 07/16/2018 Urology Consultation Consultation was called by Dr. Tay in the emergency room. CHIEF COMPLAINT AND REASON FOR CONSULTATION: Urinary retention, malfunctioning catheter. HISTORY OF PRESENT ILLNESS: Eric Munoz is a 73-year-old male, patient of Dr. Elpidio Law, who is morbidly obese and has had to have catheter changes over a wire secondary to his obesity. He last presented approximately 2 weeks prior with a clogged catheter, now presents with the same. PAST MEDICAL HISTORY: As above. Congestive heart failure, hypertension, obesity, multiple chronic urinary tract infections, previous abdominal surgery, ex-lap, colon resection. Please see old consults for further details. MEDICATIONS: Please see MAR. ALLERGIES: CEFDINIR. SOCIAL HISTORY: Nonsmoker, nondrinker. FAMILY HISTORY: Denied urologic stones or malignancies. REVIEW OF SYSTEMS: Noncontributory other than problems mentioned above for 12 organ systems. PHYSICAL EXAMINATION: GENERAL: Obese male, currently in no acute distress. VITAL SIGNS: Temperature 97.7, pulse 76, respirations 18, blood pressure 143/81. HEENT: Sclerae anicteric. NECK: Supple. BACK: Without costovertebral angle tenderness bilaterally. ABDOMEN: Soft. It is nontender and nondistended. No palpable mass. No palpable hernias. No palpable groin lymphadenopathy. : Normal. Buried penis. Morgan catheter not draining. EXTREMITIES: 3+ edema. NEUROLOGIC: Moves 4 extremities to command. PSYCH: Alert. Mood appropriate. SKIN: Ecchymotic changes of lower extremities. PERTINENT LABORATORY DATA: Current urinalysis 21 to 50 reds, 6 to 10 whites. CBC and Chem-7 both normal from prior visit. CT scan of the pelvis in 03/2018, showed right hydronephrosis. IMPRESSION: 1. Urinary retention. 2. Morbid obesity. 3. Urinary tract infection, present on admission. 4. Microscopic hematuria. 5. Hypertension. 6. Right-sided hydronephrosis. PLAN: 1. Procedure note: Utilizing a sterile guidewire, brought the Morgan catheter out. Managed to declog the Morgan catheter, which was heavily calcified in the tip. The only [place]-tip catheter we had was an 18-[place] catheter. This was exchanged over the guidewire. Approximately 600 mL of clear yellow urine was returned immediately. The patient tolerated the procedure well. 2. Urinary tract infection. Send urine for culture. Adjust to culture specific antibiotics available. Microscopic hematuria, we need to do cystoscopy. 3. For the obesity with memory loss, hydronephrosis, will need additional imaging. Thank you for allowing me to participate in the care of the patient. I will be happy to follow along with you. MD HELENA Armijo/DARIEN /[id number]
== END 2018-07-16 19:20 | disposition home or self-care (01) ==
LOC: ER 14:12
DX: Z46.6 Encounter for fitting and adjustment of urinary device (principal); N18.9 Chronic kidney disease, unspecified; Z86.718 Personal history of other venous thrombosis and embolism
CPT/HCPCS: 99282

== ENCOUNTER → 2018-10-22 | Emergency (ER) | payer OTHER ==
[~2018-10-22] VITALS: Ht 180.3 cm; Wt 186.9 kg
--- OUTSIDE RECORDS SUMMARY | 2018-10-22 13:19 | XMS REPORT ---
Author Author [facility] Address Unknown Phone Unavailable Care Team Providers Care Long Line Teamster Name Role Phone ELPIDIO LAW Unavailable Unavailable ZHAO YOUNG Unavailable Unavailable EDDIE ORTIZ Unavailable Unavailable SHANTA ALBARADO Unavailable Unavailable EKTA ORONA Unavailable Unavailable Aditi WARE Unavailable Unavailable Payers Payer Name Policy Type Policy Number Effective Date Expiration Date Problems This patient has no known problems. Allergies, Adverse Reactions, Alerts Allergy Name Allergy Type Status Severity Reaction(s) Onset Date Inactive Date Treating Clinician Comments cefdinir DA Active U 2018-09-26 00:00:00 No Known Allergies DA Active U 2018-02-15 [...] Comments Text Results Atomic Results Result Comments CALCULUS (STONE) ANALYSIS 2018-10-07 12:25:00 SOURCE OF STONE (test code=STONESRC) BLADDER STONE ANALYSIS COMMENT (test code=STONECOM) NO NIDUS VISUALIZED NIDUS Color: Colin Size : Specimen received as fragments. Composition: Percentage (Represents the % composition) Ca oxalate monohydr. 05 % Calcium phosphate 30 % Magnesium esteban phos 65 % Test performed at: [place] [address] STONE ANALYSIS (test code=STONE) () Photograph will follow under separate cover. WEIGHT OF STONE (test code=STONEWT) 8.7 mg () Test performed at: [place] [address] SPECIMEN COMMENTS: BLADDER STONECALCULUS (STONE) [id number] 16:09:00* Test Item Value Reference Range Comments SOURCE OF STONE (test code=STONESRC) STONE ANALYSIS COMMENT (test code=STONECOM) NIDUS STONE ANALYSIS (test code=STONE) () Photograph will follow under separate cover. WEIGHT OF STONE (test code=STONEWT) 8.7 mg () Test performed at: [place] [address] SPECIMEN COMMENTS: BLADDER [id number] 15:37:00 RUN DATE: 10/01/18 [facility] PAGE 1 RUN TIME: 1537 Specimen Inqui ry RUN USER: INTERFACE PATIENT: MCKAY KEITH ACCT #: [id number] [facility] #: [id number] AGE/SX: 73/M ROOM: [facility] RE09/27/18REG DR: Zhao Young MD : 43 BED: A DIS: 09/30/18 STATUS: DIS IN TLOC: SPEC #: [id number] RECD: 09/30/18 STATUS: SYED JEREZ #: [id number] HERMINOI: 09/27/18- SUBM DR: Zhao Young MD ENTERED: 09/30/18 SP TYPE: CALCULI OTHR DR: DOES_N OT KNOW Elpidio Law MD No Primary Care PhysicianORDERED: SAMANTHA COPIES TO: DOES_NOT KNOW Mateo Law MD [address] [place] [address] Zhao Young MD [address] [place] [address] [email or web address] Primary Care Physician Use by ED only for patient without primar y care physician ED USE ONLY-Pt.w/o primary MD PROCEDURES: SAMANTHA (09/30/18) TISSUES: URINARY BLADDER, NOS - STONE CLINICAL HISTORY C OLLECTION DATE: 09/27/18 UTI FINAL DIAGNOSIS Bladder stone, remov al: CALCULOUS MATERIAL TO BE SENT FOR CHEMICAL ANALYSIS DMW/ D [id number] CONTINUED ON NEXT PAGE -------- ----RUN DATE: 10/01/18 [facility] PAGE 2 RUN TIME: 1537 Specimen Inquiry RUN USER: INTERFACE SPEC #: [id number] PATIENT: MCKAY KEITH #[id number] (Continued) MACROSCOPIC The s pecimen is received in a container labeled with the patient's name, "bladder s tone". It consists of colin calculus material measuring 0.4 cm in aggregate. GROSS PERFORMED AT [facility] [address] [place] [address] [phone] -- Signed SIGNATURE ON FILE Lauren Sanchez MD 10/01/18 1537 END OF REPORT BASIC METABOLIC [id number] 06:50:00* Test Item Value Reference Range Comments SODIUM (test code=NA) 141 mmol/L 136-145 POTASSIUM (test code=K) 3.9 mmol/L 3.5-5.1 CHLORIDE (test code=CL) 109.0 mmol/L 98-107 CARBON DIOXIDE (test code=CO2) 26.0 mmol/L 21-32 ANION GAP (test code=GAP) 9.9 10-20 GLUCOSE (test code=GLU) 76 mg/dL 74-106 BLOOD UREA NITROGEN (test code=BUN) 31 mg/dL 7-18 GLOMERULAR FILTRATION RATE (test code=GFR) 50 mL/min >=60 Estimated GFR by using Modified MDRD formula.Chronic kidney disease is defined as either kidney damageor GFR <60 mL/min/1.73 m2 for >3 months. CREATININE (test code=CREAT) 1.40 mg/dL 0.7-1.3 BUN/CREATININE RATIO (test code=BUN/CREA) 22.1 10-20 CALCIUM (test code=CA) 8.8 mg/dL 8.5-10.1 BASIC METABOLIC [id number] 06:44:00* Test Item Value Reference Range Comments SODIUM (test code=NA) 141 mmol/L 136-145 POTASSIUM (test code=K) 3.9 mmol/L 3.5-5.1 CHLORIDE (test code=CL) 109.0 mmol/L 98-107 CARBON DIOXIDE (test code=CO2) mmol/L 21-32 ANION GAP (test code=GAP) 10-20 GLUCOSE (test code=GLU) mg/dL 74-106 BLOOD UREA NITROGEN (test code=BUN) mg/dL 7-18 GLOMERULAR FILTRATION RATE (test code=GFR) mL/min >=60 CREATININE (test code=CREAT) mg/dL 0.7-1.3 BUN/CREATININE RATIO (test code=BUN/CREA) 10-20 CALCIUM (test code=CA) mg/dL 8.5-10.1 CBC W/AUTO [id number] 05:56:00* Test Item Value Reference Range Comments WHITE BLOOD CELL (test code=WBC) 8.5 K/mm3 4.5-12.5 RED BLOOD CELL (test code=RBC) 3.90 mill/mm3 4.0-5.8 HEMOGLOBIN (test code=HGB) 12.9 gram/dL 13.0-17.5 HEMATOCRIT (test code=HCT) 37.8 % 42.0-52.0 MEAN CELL VOLUME (test code=MCV) 96.9 fL 80-98 MEAN CELL HGB (test code=MCH) 33.1 picogram 27.0-33.0 MEAN CELL HGB CONCETRATION (test code=MCHC) 34.1 gram/dL 33.0-36.0 RED CELL DISTRIBUTION WIDTH (test code=RDW) 13.2 % 11.6-16.2 RED CELL DISTRIBUTION WIDTH SD (test code=RDW-SD) 46.5 fL 37.0-51.0 PLATELET COUNT (test code=PLT) 214 K/mm3 150-450 MEAN PLATELET VOLUME (test code=MPV) 10.5 fL 6.7-11.0 NEUTROPHIL % (test code=NT%) 65.1 % 39.0-69.0 IMMATURE GRANULOCYTE % (test code=IG%) 1.1 % 0.0-5.0 LYMPHOCYTE % (test code=LY%) 21.7 % 25.0-55.0 MONOCYTE % (test code=MO%) 10.9 % 0.0-10.0 EOSINOPHIL % (test code=EO%) 0.8 % 0.0-5.0 BASOPHIL % (test code=BA%) 0.4 % 0.0-1.0 NUCLEATED RBC % (test code=NRBC%) 0.0 % 0-0 NEUTROPHIL # (test code=NT#) 5.57 K/mm3 1.8-7.7 IMMATURE GRANULOCYTE # (test code=IG#) 0.09 x10 3/uL 0-0.03 LYMPHOCYTE # (test code=LY#) 1.85 K/mm3 1.0-5.0 MONOCYTE # (test code=MO#) 0.93 K/mm3 0-0.8 EOSINOPHIL # (test code=EO#) 0.07 K/mm3 0.0-0.5 BASOPHIL # (test code=BA#) 0.03 K/mm3 0.0-0.2 NUCLEATED RBC # (test code=NRBC#) 0.00 K/mm3 0.0-0.1 PROCALCITONIN (PCT)2018-09-28 17:42:00* Test Item Value Reference Range Comments PROCALCITONIN (PCT) (test code=PROCAL) 1.71 ng/ml Concentration Interpretation (ng/mL) <0.51 Sepsis is not likely. Local bacterial infection is possible. (LOW RISK for progression to Sepsis) 0.51 - 2.00 Sepsis is possible, but other conditions are known to elevate PCT as well. (MODERATE RISK for progression to Sepsis) > 2.00 Sepsis is likely, unless other causes are known. (HIGH RISK for progression to Severe Sepsis or Septic Shock) 10.00 High likelihood of Severe Sepsis or Septic or higher Shock. *Increased PCT levels may not always be related to systemic bacterial infection.*Low PCT levels do not automatically exclude the presence of bacterial infection.*All results should be interpreted taking into account the patients history. BASIC METABOLIC [id number] 13:27:00* Test Item Value Reference Range Comments SODIUM (test code=NA) 137 mmol/L 136-145 POTASSIUM (test code=K) 4.1 mmol/L 3.5-5.1 CHLORIDE (test code=CL) 106.0 mmol/L 98-107 CARBON DIOXIDE (test code=CO2) 26.0 mmol/L 21-32 ANION GAP (test code=GAP) 9.1 10-20 GLUCOSE (test code=GLU) 109 mg/dL 74-106 BLOOD UREA NITROGEN (test code=BUN) 27 mg/dL 7-18 GLOMERULAR FILTRATION RATE (test code=GFR) 42 mL/min >=60 Estimated GFR by using Modified MDRD formula.Chronic kidney disease is defined as either kidney damageor GFR <60 mL/min/1.73 m2 for >3 months. CREATININE (test code=CREAT) 1.60 mg/dL 0.7-1.3 BUN/CREATININE RATIO (test code=BUN/CREA) 16.9 10-20 CALCIUM (test code=CA) 9.3 mg/dL 8.5-10.1 BASIC METABOLIC [id number] 13:23:00* Test Item Value Reference Range Comments SODIUM (test code=NA) 137 mmol/L 136-145 POTASSIUM (test code=K) 4.1 mmol/L 3.5-5.1 CHLORIDE (test code=CL) 106.0 mmol/L 98-107 CARBON DIOXIDE (test code=CO2) mmol/L 21-32 ANION GAP (test code=GAP) 10-20 GLUCOSE (test code=GLU) mg/dL 74-106 BLOOD UREA NITROGEN (test code=BUN) mg/dL 7-18 GLOMERULAR FILTRATION RATE (test code=GFR) mL/min >=60 CREATININE (test code=CREAT) mg/dL 0.7-1.3 BUN/CREATININE RATIO (test code=BUN/CREA) 10-20 CALCIUM (test code=CA) mg/dL 8.5-10.1 CBC W/AUTO [id number] 13:11:00* Test Item Value Reference Range Comments WHITE BLOOD CELL (test code=WBC) 9.8 K/mm3 4.5-12.5 RED BLOOD CELL (test code=RBC) 4.03 mill/mm3 4.0-5.8 HEMOGLOBIN (test code=HGB) 13.4 gram/dL 13.0-17.5 HEMATOCRIT (test code=HCT) 40.1 % 42.0-52.0 MEAN CELL VOLUME (test code=MCV) 99.5 fL 80-98 MEAN CELL HGB (test code=MCH) 33.3 picogram 27.0-33.0 MEAN CELL HGB CONCETRATION (test code=MCHC) 33.4 gram/dL 33.0-36.0 RED CELL DISTRIBUTION WIDTH (test code=RDW) 13.2 % 11.6-16.2 RED CELL DISTRIBUTION WIDTH SD (test code=RDW-SD) 48.3 fL 37.0-51.0 PLATELET COUNT (test code=PLT) 207 K/mm3 150-450 MEAN PLATELET VOLUME (test code=MPV) 10.0 fL 6.7-11.0 NEUTROPHIL % (test code=NT%) 79.3 % 39.0-69.0 IMMATURE GRANULOCYTE % (test code=IG%) 0.6 % 0.0-5.0 LYMPHOCYTE % (test code=LY%) 13.0 % 25.0-55.0 MONOCYTE % (test code=MO%) 6.9 % 0.0-10.0 EOSINOPHIL % (test code=EO%) 0.1 % 0.0-5.0 BASOPHIL % (test code=BA%) 0.1 % 0.0-1.0 NUCLEATED RBC % (test code=NRBC%) 0.0 % 0-0 NEUTROPHIL # (test code=NT#) 7.75 K/mm3 1.8-7.7 IMMATURE GRANULOCYTE # (test code=IG#) 0.06 x10 3/uL 0-0.03 LYMPHOCYTE # (test code=LY#) 1.27 K/mm3 1.0-5.0 MONOCYTE # (test code=MO#) 0.67 K/mm3 0-0.8 EOSINOPHIL # (test code=EO#) 0.01 K/mm3 0.0-0.5 BASOPHIL # (test code=BA#) 0.01 K/mm3 0.0-0.2 NUCLEATED RBC # (test code=NRBC#) 0.00 K/mm3 0.0-0.1 CBC W/AUTO [id number] 13:09:00* Test Item Value Reference Range Comments WHITE BLOOD CELL (test code=WBC) K/mm3 4.5-12.5 RED BLOOD CELL (test code=RBC) mill/mm3 4.0-5.8 HEMOGLOBIN (test code=HGB) 13.4 gram/dL 13.0-17.5 HEMATOCRIT (test code=HCT) % 42.0-52.0 MEAN CELL VOLUME (test code=MCV) fL 80-98 MEAN CELL HGB (test code=MCH) picogram 27.0-33.0 MEAN CELL HGB CONCETRATION (test code=MCHC) gram/dL 33.0-36.0 RED CELL DISTRIBUTION WIDTH (test code=RDW) % 11.6-16.2 RED CELL DISTRIBUTION WIDTH SD (test code=RDW-SD) fL 37.0-51.0 PLATELET COUNT (test code=PLT) K/mm3 150-450 MEAN PLATELET VOLUME (test code=MPV) fL 6.7-11.0 NEUTROPHIL % (test code=NT%) % 39.0-69.0 IMMATURE GRANULOCYTE % (test code=IG%) % 0.0-5.0 LYMPHOCYTE % (test code=LY%) % 25.0-55.0 MONOCYTE % (test code=MO%) % 0.0-10.0 EOSINOPHIL % (test code=EO%) % 0.0-5.0 BASOPHIL % (test code=BA%) % 0.0-1.0 NEUTROPHIL # (test code=NT#) K/mm3 1.8-7.7 LYMPHOCYTE # (test code=LY#) K/mm3 1.0-5.0 MONOCYTE # (test code=MO#) K/mm3 0-0.8 EOSINOPHIL # (test code=EO#) K/mm3 0.0-0.5 BASOPHIL # (test code=BA#) K/mm3 0.0-0.2 BASIC METABOLIC [id number] 05:48:00* Test Item Value Reference Range Comments SODIUM (test code=NA) 135 mmol/L 136-145 POTASSIUM (test code=K) 3.6 mmol/L 3.5-5.1 CHLORIDE (test code=CL) 103.0 mmol/L 98-107 CARBON DIOXIDE (test code=CO2) 25.0 mmol/L 21-32 ANION GAP (test code=GAP) 10.6 10-20 GLUCOSE (test code=GLU) 109 mg/dL 74-106 BLOOD UREA NITROGEN (test code=BUN) 25 mg/dL 7-18 GLOMERULAR FILTRATION RATE (test code=GFR) 42 mL/min >=60 Estimated GFR by using Modified MDRD formula.Chronic kidney disease is defined as either kidney damageor GFR <60 mL/min/1.73 m2 for >3 months. CREATININE (test code=CREAT) 1.60 mg/dL 0.7-1.3 BUN/CREATININE RATIO (test code=BUN/CREA) 15.6 10-20 CALCIUM (test code=CA) 9.4 mg/dL 8.5-10.1 BASIC METABOLIC [id number] 05:36:00* Test Item Value Reference Range Comments SODIUM (test code=NA) 135 mmol/L 136-145 POTASSIUM (test code=K) 3.6 mmol/L 3.5-5.1 CHLORIDE (test code=CL) 103.0 mmol/L 98-107 CARBON DIOXIDE (test code=CO2) mmol/L 21-32 ANION GAP (test code=GAP) 10-20 GLUCOSE (test code=GLU) mg/dL 74-106 BLOOD UREA NITROGEN (test code=BUN) mg/dL 7-18 GLOMERULAR FILTRATION RATE (test code=GFR) mL/min >=60 CREATININE (test code=CREAT) mg/dL 0.7-1.3 BUN/CREATININE RATIO (test code=BUN/CREA) 10-20 CALCIUM (test code=CA) mg/dL 8.5-10.1 CBC W/AUTO [id number] 05:10:00* Test Item Value Reference Range Comments WHITE BLOOD CELL (test code=WBC) 14.2 K/mm3 4.5-12.5 RED BLOOD CELL (test code=RBC) 4.63 mill/mm3 4.0-5.8 HEMOGLOBIN (test code=HGB) 15.3 gram/dL 13.0-17.5 HEMATOCRIT (test code=HCT) 45.7 % 42.0-52.0 MEAN CELL VOLUME (test code=MCV) 98.7 fL 80-98 MEAN CELL HGB (test code=MCH) 33.0 picogram 27.0-33.0 MEAN CELL HGB CONCETRATION (test code=MCHC) 33.5 gram/dL 33.0-36.0 RED CELL DISTRIBUTION WIDTH (test code=RDW) 13.2 % 11.6-16.2 RED CELL DISTRIBUTION WIDTH SD (test code=RDW-SD) 47.7 fL 37.0-51.0 PLATELET COUNT (test code=PLT) 225 K/mm3 150-450 MEAN PLATELET VOLUME (test code=MPV) 10.0 fL 6.7-11.0 NEUTROPHIL % (test code=NT%) 83.4 % 39.0-69.0 IMMATURE GRANULOCYTE % (test code=IG%) 0.8 % 0.0-5.0 LYMPHOCYTE % (test code=LY%) 7.7 % 25.0-55.0 MONOCYTE % (test code=MO%) 7.8 % 0.0-10.0 EOSINOPHIL % (test code=EO%) 0.0 % 0.0-5.0 BASOPHIL % (test code=BA%) 0.3 % 0.0-1.0 NUCLEATED RBC % (test code=NRBC%) 0.0 % 0-0 NEUTROPHIL # (test code=NT#) 11.86 K/mm3 1.8-7.7 IMMATURE GRANULOCYTE # (test code=IG#) 0.12 x10 3/uL 0-0.03 LYMPHOCYTE # (test code=LY#) 1.10 K/mm3 1.0-5.0 MONOCYTE # (test code=MO#) 1.11 K/mm3 0-0.8 EOSINOPHIL # (test code=EO#) 0.00 K/mm3 0.0-0.5 BASOPHIL # (test code=BA#) 0.04 K/mm3 0.0-0.2 NUCLEATED RBC # (test code=NRBC#) 0.00 K/mm3 0.0-0.1 CBC W/AUTO [id number] 05:08:00* Test Item Value Reference Range Comments WHITE BLOOD CELL (test code=WBC) K/mm3 4.5-12.5 RED BLOOD CELL (test code=RBC) mill/mm3 4.0-5.8 HEMOGLOBIN (test code=HGB) 15.3 gram/dL 13.0-17.5 HEMATOCRIT (test code=HCT) 45.7 % 42.0-52.0 MEAN CELL VOLUME (test code=MCV) fL 80-98 MEAN CELL HGB (test code=MCH) picogram 27.0-33.0 MEAN CELL HGB CONCETRATION (test code=MCHC) gram/dL 33.0-36.0 RED CELL DISTRIBUTION WIDTH (test code=RDW) % 11.6-16.2 RED CELL DISTRIBUTION WIDTH SD (test code=RDW-SD) fL 37.0-51.0 PLATELET COUNT (test code=PLT) K/mm3 150-450 MEAN PLATELET VOLUME (test code=MPV) fL 6.7-11.0 NEUTROPHIL % (test code=NT%) % 39.0-69.0 IMMATURE GRANULOCYTE % (test code=IG%) % 0.0-5.0 LYMPHOCYTE % (test code=LY%) % 25.0-55.0 MONOCYTE % (test code=MO%) % 0.0-10.0 EOSINOPHIL % (test code=EO%) % 0.0-5.0 BASOPHIL % (test code=BA%) % 0.0-1.0 NEUTROPHIL # (test code=NT#) K/mm3 1.8-7.7 LYMPHOCYTE # (test code=LY#) K/mm3 1.0-5.0 MONOCYTE # (test code=MO#) K/mm3 0-0.8 EOSINOPHIL # (test code=EO#) K/mm3 0.0-0.5 BASOPHIL # (test code=BA#) K/mm3 0.0-0.2 LACTIC [id number] 19:45:00* Test Item Value Reference Range Comments LACTIC ACID (test code=LACT) 1.9 mmol/L 0.4-1.9 LACTIC [id number] 16:37:00* Test Item Value Reference Range Comments LACTIC ACID (test code=LACT) 2.2 mmol/L 0.4-1.9 Results called to [id number] by 09/26/18 1637Critical results verified and read back by Nurse? Y PROCALCITONIN (PCT)2018-09-26 14:13:00* Test Item Value Reference Range Comments PROCALCITONIN (PCT) (test code=PROCAL) 2.36 ng/ml Concentration Interpretation (ng/mL) <0.51 Sepsis is not likely. Local bacterial infection is possible. (LOW RISK for progression to Sepsis) 0.51 - 2.00 Sepsis is possible, but other conditions are known to elevate PCT as well. (MODERATE RISK for progression to Sepsis) > 2.00 Sepsis is likely, unless other causes are known. (HIGH RISK for progression to Severe Sepsis or Septic Shock) 10.00 High likelihood of Severe Sepsis or Septic or higher Shock. *Increased PCT levels may not always be related to systemic bacterial infection.*Low PCT levels do not automatically exclude the presence of bacterial infection.*All results should be interpreted taking into account the patients history. [id number] 14:12:00* Test Item Value Reference Range Comments GLYCOSYLATED HEMOGLOBIN (HA1C) (test code=GLYHGB) 5.1 % HbA1 4.8-6.0 ESTIMATED AVERAGE GLUCOSE (test code=EAG) 100 MG/DL LIPID PROFILE (CORONARY RISK)2018-09-26 14:05:00* Test Item Value Reference Range Comments TRIGLYCERIDES (test code=TRIG) 70 mg/dL 20-150 CHOLESTEROL (test code=CHOL) 129 mg/dL 0-200 CHOLESTEROL/HDL RATIO (test code=CHOLHDL) 3.0 RATIO 0-4.9 RISK ASSOCIATED WITH CHOL/HDL RATIOS: Risk Male Female1/2 AVERAGE 3.43 3.27AVERAGE 4.97 4.442X AVERAGE 9.55 7.053X AVERAGE 23.39 11.04 REFERENCE VALUE IS RELATED TO RISK LEVELS ASRECOMMENDED BY THE ELLIE. HEART, LUNG, AND BLOOD INST. HDL CHOLESTEROL (test code=HDL) 38 mg/dL 40-60 LIPOPROTEIN LDL (test code=LDL) 86 mg/dL 100-129 Reference Interval: mg/dL mmol/L Optimal <100 <2.6Near/above optimal 100-129 2.6- 3.3Borderline High 130-159 3.4-4.1High 160-189 4.1-4.9Very High >=190 >=4.9=========This LDL result is a direct measurement.========= LACTIC [id number] 13:34:00* Test Item Value Reference Range Comments LACTIC ACID (test code=LACT) 2.0 mmol/L 0.4-1.[address] DEL ROSARIO by BON 09/26/18 1334Critical results verified and read back by Nurse? Y POC LACTIC [id number] 12:49:00* Test Item Value Reference Range Comments POC LACTIC ACID (test code=POCLAC) 1.07 MMOL/L 0.4-2.2 URINALYSIS [id number] 12:42:00* Test Item Value Reference Range Comments UA COLOR (test code=COLU) Light-[place] YELLOW UA APPEARANCE (test code=APPU) Cloudy CLEAR UA GLUCOSE DIPSTICK (test code=DGLUU) NEGATIVE mg/dL NEGATIVE UA BILIRUBIN DIPSTICK (test code=BILU) NEGATIVE mg/dL NEGATIVE UA KETONE DIPSTICK (test code=KETU) NEGATIVE mg/dL NEGATIVE UA SPECIFIC GRAVITY (test code=SGU) 1.018 1.001-1.035 UA BLOOD DIPSTICK (test code=ERIK) 1.0 mg/dL (3+) mg/dL NEGATIVE UA PH DIPSTICK (test code=IOANA) 8.0 5.0-8.0 UA PROTEIN DIPSTICK (test code=PROU) 200 (2+) mg/dL NEGATIVE UA UROBILINIOGEN DIPSTICK (test code=URO) Normal mg/dL NEGATIVE UA NITRITE DIPSTICK (test code=BRYCE) NEGATIVE NEGATIVE UA LEUKOCYTE ESTERASE W REFLEX (test code=LEUUR) 500 Tiffany/uL (3+) Tiffany/uL NEGATIVE UA WBC (test code=WBCU) 21-50 per HPF 0-5 UA RBC (test code=RBCU) 11-20 #/HPF 0-5 UA WBC CLUMPS (test code=WBCUCL) 0-2 /HPF NONE UA EPITHELIAL CELLS (test code=EPIU) FEW per HPF FEW UA BACTERIA (test code=BACU) MODERATE #/HPF NONE UA TRIPLE PHOSPHATE CRYSTALS (test code=TRPHOSU) MODERATE #/HPF NONE UA MUCUS (test code=MUCU) FEW #/LPF FEW UA AMORPHOUS SEDIMENT (test code=AMORU) MODERATE per LPF NONE Urine Source? CatheterURINALYSIS [id number] 12:36:00* Test Item Value Reference Range Comments UA COLOR (test code=COLU) [place] YELLOW UA APPEARANCE (test code=APPU) Cloudy CLEAR UA GLUCOSE DIPSTICK (test code=DGLUU) NEGATIVE mg/dL NEGATIVE UA BILIRUBIN DIPSTICK (test code=BILU) NEGATIVE mg/dL NEGATIVE UA KETONE DIPSTICK (test code=KETU) NEGATIVE mg/dL NEGATIVE UA SPECIFIC GRAVITY (test code=SGU) 1.018 1.001-1.035 UA BLOOD DIPSTICK (test code=ERIK) 1.0 mg/dL (3+) mg/dL NEGATIVE UA PH DIPSTICK (test code=IOANA) 8.0 5.0-8.0 UA PROTEIN DIPSTICK (test code=PROU) 200 (2+) mg/dL NEGATIVE UA UROBILINIOGEN DIPSTICK (test code=URO) Normal mg/dL NEGATIVE UA NITRITE DIPSTICK (test code=BRYCE) NEGATIVE NEGATIVE UA LEUKOCYTE ESTERASE W REFLEX (test code=LEUUR) 500 Tiffany/uL (3+) Tiffany/uL NEGATIVE UA WBC (test code=WBCU) 21-50 per HPF 0-5 UA RBC (test code=RBCU) 11-20 #/HPF 0-5 UA WBC CLUMPS (test code=WBCUCL) 0-2 /HPF NONE UA EPITHELIAL CELLS (test code=EPIU) FEW per HPF FEW UA BACTERIA (test code=BACU) MODERATE #/HPF NONE UA TRIPLE PHOSPHATE CRYSTALS (test code=TRPHOSU) MODERATE #/HPF NONE UA MUCUS (test code=MUCU) FEW #/LPF FEW Urine Source? CatheterURINALYSIS [id number] 12:34:00* Test Item Value Reference Range Comments UA COLOR (test code=COLU) [place] YELLOW UA APPEARANCE (test code=APPU) Cloudy CLEAR UA GLUCOSE DIPSTICK (test code=DGLUU) NEGATIVE mg/dL NEGATIVE UA BILIRUBIN DIPSTICK (test code=BILU) NEGATIVE mg/dL NEGATIVE UA KETONE DIPSTICK (test code=KETU) NEGATIVE mg/dL NEGATIVE UA SPECIFIC GRAVITY (test code=SGU) 1.018 1.001-1.035 UA BLOOD DIPSTICK (test code=ERIK) 1.0 mg/dL (3+) mg/dL NEGATIVE UA PH DIPSTICK (test code=IOANA) 8.0 5.0-8.0 UA PROTEIN DIPSTICK (test code=PROU) 200 (2+) mg/dL NEGATIVE UA UROBILINIOGEN DIPSTICK (test code=URO) Normal mg/dL NEGATIVE UA NITRITE DIPSTICK (test code=BRYCE) NEGATIVE NEGATIVE UA LEUKOCYTE ESTERASE W REFLEX (test code=LEUUR) 500 Tiffany/uL (3+) Tiffany/uL NEGATIVE UA WBC (test code=WBCU) per HPF 0-5 UA RBC (test code=RBCU) per HPF 0-5 UA EPITHELIAL CELLS (test code=EPIU) per HPF Few UA BACTERIA (test code=BACU) per HPF NONE Urine Source? CatheterB-TYPE NATRIURETIC [id number] 12:12:00* Test Item Value Reference Range Comments B-TYPE NATRIURETIC PEPTIDE (test code=BNP) 150.43 pgram/mL 0-100 BASIC METABOLIC [id number] 11:34:00* Test Item Value Reference Range Comments SODIUM (test code=NA) 135 mmol/L 136-145 POTASSIUM (test code=K) 3.8 mmol/L 3.5-5.1 CHLORIDE (test code=CL) 101.0 mmol/L 98-107 CARBON DIOXIDE (test code=CO2) 26.0 mmol/L 21-32 ANION GAP (test code=GAP) 11.8 10-20 GLUCOSE (test code=GLU) 133 mg/dL 74-106 BLOOD UREA NITROGEN (test code=BUN) 23 mg/dL 7-18 GLOMERULAR FILTRATION RATE (test code=GFR) 42 mL/min >=60 Estimated GFR by using Modified MDRD formula.Chronic kidney disease is defined as either kidney damageor GFR <60 mL/min/1.73 m2 for >3 months. CREATININE (test code=CREAT) 1.60 mg/dL 0.7-1.3 BUN/CREATININE RATIO (test code=BUN/CREA) 14.4 10-20 CALCIUM (test code=CA) 9.4 mg/dL 8.5-10.1 [id number] 11:34:00* Test Item Value Reference Range Comments TROPONIN-I (test code=TROPI) 0.047 ng/mL 0-0.045 Results called to [id number] by BON 09/26/18 1134Critical results verified and read back by Nurse? Y CBC W/O [id number] 11:22:00* Test Item Value Reference Range Comments WHITE BLOOD CELL (test code=WBC) 21.5 K/mm3 4.5-12.5 RED BLOOD CELL (test code=RBC) 4.48 mill/mm3 4.0-5.8 HEMOGLOBIN (test code=HGB) 15.1 gram/dL 13.0-17.5 HEMATOCRIT (test code=HCT) 42.6 % 42.0-52.0 MEAN CELL VOLUME (test code=MCV) 95.1 fL 80-98 MEAN CELL HGB (test code=MCH) 33.7 picogram 27.0-33.0 MEAN CELL HGB CONCETRATION (test code=MCHC) 35.4 gram/dL 33.0-36.0 RED CELL DISTRIBUTION WIDTH (test code=RDW) 13.0 % 11.6-16.2 PLATELET COUNT (test code=PLT) 255 K/mm3 150-450 MEAN PLATELET VOLUME (test code=MPV) 10.3 fL 6.7-11.0 BASIC METABOLIC [id number] 11:21:00* Test Item Value Reference Range Comments SODIUM (test code=NA) 135 mmol/L 136-145 POTASSIUM (test code=K) 3.8 mmol/L 3.5-5.1 CHLORIDE (test code=CL) 101.0 mmol/L 98-107 CARBON DIOXIDE (test code=CO2) mmol/L 21-32 ANION GAP (test code=GAP) 10-20 GLUCOSE (test code=GLU) mg/dL 74-106 BLOOD UREA NITROGEN (test code=BUN) mg/dL 7-18 GLOMERULAR FILTRATION RATE (test code=GFR) mL/min >=60 CREATININE (test code=CREAT) mg/dL 0.7-1.3 BUN/CREATININE RATIO (test code=BUN/CREA) 10-20 CALCIUM (test code=CA) mg/dL 8.5-10.1 [id number] 11:21:00* Test Item Value Reference Range Comments TROPONIN-I (test code=TROPI) ng/mL 0-0.045 CBC W/O [id number] 11:19:00* Test Item Value Reference Range Comments WHITE BLOOD CELL (test code=WBC) K/mm3 4.5-12.5 RED BLOOD CELL (test code=RBC) mill/mm3 4.0-5.8 HEMOGLOBIN (test code=HGB) 15.1 gram/dL 13.0-17.5 HEMATOCRIT (test code=HCT) 42.6 % 42.0-52.0 MEAN CELL VOLUME (test code=MCV) fL 80-98 MEAN CELL HGB (test code=MCH) picogram 27.0-33.0 MEAN CELL HGB CONCETRATION (test code=MCHC) gram/dL 33.0-36.0 RED CELL DISTRIBUTION WIDTH (test code=RDW) % 11.6-16.2 PLATELET COUNT (test code=PLT) K/mm3 150-450 MEAN PLATELET VOLUME (test code=MPV) fL 6.7-11.0 - XR CHEST 1 [id number] 10:53:00 FAX: Robbin Lopez DO [place]: B St: REG Name: MCKAY KRISHNAMURTHY [facility] : 06/26/18 44 Age/S: 73/M [address] [facility] Unit #: [id number] Loc: [place] [address] Phys: Robbin Lopez DO Acct: [id number] Dis Date: Status: REG ER PHONE #: [phone] Exam Date: 09/26/2018 1028 FAX #: [phone] Reason: Shortness of Breath EXAMS: CPT CODE: [id number] XR CHEST 1 V [id number] HISTORY: Shortness of breath. COMPARISON: February 19, 2018. No acute infiltrates, effusion or congestion is noted. Mild scarring. Mild bullous changes. The cardiac and mediastinal silhouette are within normal limits. IMPRESSION: No acute infiltrates, effusion or congestion. at 1053 Reported and signed by: Tacos Lopez M.D. CC: Robbin Lopez DO Technologist: Balta DORAN(Denys) Trnscrd Date/Time/By: 09/26/2018 ([id number]) : By: [email or web address] Orig Print D/T: S: 09/26/2018 (2631) PAGE 1 Signed Report CHEST 2 [id number] 11:08:00 [place] [address] Patient Name: MCKAY KEITH MR #: [id number] : 1945 Age/Sex: 73/M Req #: [id number] Adm Physician: Ordered by: ELPIDIO LAW MD Report #: [id number] Location: OR Room/Bed: Procedure: [id number] DX/ANITA ST 2 VIEWS Exam Date: 08/08/18 Exam Time: 1010 REPORT STATUS: Signed EXAMINATION: C HEST 2 VIEWS INDICATION: Pre-op. COMPARISON: None FINDI NGS: TUBES and LINES: None. LUNGS: Lungs are moderately inflated. Th ere is no evidence of pneumonia or pulmonary edema. PLEURA: No pleural e ffusion or pneumothorax. HEART AND MEDIASTINUM: The cardiomediastinal shanell houette is unremarkable. BONES AND SOFT TISSUES: No acute osseous abno rmality. UPPER ABDOMEN: No free air under the diaphragm. IMPRESSIO N: No acute radiographic abnormality. Signed by: Dr. Trinh Salter MD on 11:10 AM Dictated By: TRINH SALTER MD 1110 Transcribed By: URBAN on 08/08/18 1110 CO PY TO: ELPIDIO LAW MD CT PELVIS [id number] 20:05:00 [place] [address] Patient Name: MCKAY KEITH JR MR #: [id number] : Age/Sex: 72/M Req #: [id number] Adm Physician: ZHAO YOUNG MD Ordered by: SETH LEAL MD Report #: [id number] Location: [facility] Room/Bed: [place] [address] Procedure: [id number] CT/CT PELVIS WO Exam Date: 04/14/18 Exam Time: 1715 REPORT STATUS: Signed EXAM: CT PELVIS WO DATE: 04/14/2018 5:03 PM INDICATION: Lost Morgan COMPARISO N: None TECHNIQUE: The pelvis was scanned using a multidetector helical scan ner. Coronal and sagittal reformations were obtained. CT low dose techniques were utilized, as applicable. IV Contrast: 0 ml Isovue 300/370 FINDING S: Lack of IV contrast and excessive noise related to body habitus decrease sensitivity in evaluating pelvic organs. GI TRACT: No wall thickening or evide nce of obstruction. VESSELS: Unremarkable PERITONEUM/RETROPERITONEUM: No free air or fluid LYMPH NODES: No lymphadenopathy REPRODUCTIVE ORGANS /BLADDER: A Morgan catheter is seen within the bladder. The bladder is distende d with perivesicular inflammatory changes. Mild right hydronephrosis and visua lized left ureterectasis with. Ureteral inflammatory changes. Prostatomegaly w ith calcifications. SOFT TISSUES: No acute findings BONES: Degenerative c hanges are noted. IMPRESSION: 1. Morgan seen in the bladder, which is d istended in keeping with reported malfunction. Mild right hydronephrosis and visualized left ureterectasis related to bladder distention. 2. Perivesicula r inflammatory changes related to known cystitis. Visualized periureteral infl ammatory changes could indicate ascending infection/pyelitis. Signed by: Dr Darrius Corbett MD on 04/14/2018 8:15 PM Dictated By: DARRIUS CORBETT MD 14 Transcribed By: URBAN on 04/14/182014 COPY TO: SETH LEAL MD XR FOOT [id number] 02:25:00Procedure: XR FOOT 2VWSExam Date: February 09, 2018Ordering Provider: EDDIE Valdezinical Indication: pain s/p fallComparison: NoneFindings: See impressionImpression:1. No evidence of acute osseous abnormalities.2. There is diffuse soft tissue edema throughout the right foot with dorsalfoot predominance.3. Multiple soft tissue calcifications noted on the lower pretibialdistribution.4. Degenerative changes of the mid and forefootThis final report was electronically signed by Dr Eddie Figueroa MD02/09/2018 2:18 AMDictated By: Rosalinda SANTIAGO: 02/09/2018 02:18XR LEG (TIB/FIB) 2 [id number] 02:23:54Procedure: XR LEG (TIB/FIB) 2 VIEWS, XR LEG [...] MD02/09/2018 2:17 AMDictated By: Rosalinda SANTIAGO: 02/09/2018 02:17XR LEG (TIB/FIB) 2 [id number] 02:23:50Procedure: XR LEG (TIB/FIB) 2 VIEWS, XR LEG [...] MD02/09/2018 2:17 AMDictated By: Rosalinda SANTIAGO: 02/09/2018 02:17XR FOOT [id number] 02:19:45Procedure: XR FOOT 2VWSExam Date: February 09, 2018Ordering Provider: Eddie Cortez Indication: pain s/p fallComparison: NoneFindings: See impressionImpression:1. No evidence of acute osseous abnormalities.2. There is diffuse soft tissue edema throughout the right foot with dorsalfoot predominance.3. Multiple soft tissue calcifications noted on the level of the ankle.4. Degenerative changes of the mid and forefootThis final report was electronically signed by Dr Eddie Pettit MD02/09/2018 2:13 AMDictated By: Kassandra SANTIAGOte: 02/09/2018 02:13CBC WITH MANUAL [id number] 14:44:00* Test Item Value Reference Range Comments WBC (test code=WBC) 11.07 10\\S\\3/ul 4.80-10.80 RBC [...] MORPHOLOGY WILL BE NOTED ON THE REPORT. [id number] 07:44:00* Test Item Value Reference Range Comments [...] of chronic kidney failure. CBC WITH AUTO [id number] 07:50:00* Test Item Value Reference Range Comments [...] (test code=IG%) 2.6 % 0.0-0.4 CBC AUTO [id number] 07:37:00* Test Item Value Reference Range Comments Magnesium (test code=MG) 1.6 mg/dl 1.6-2.3 [id number] 07:34:00* Test Item Value Reference Range Comments [...] management of chronic kidney failure. EOSINOPHIL COUNT [id number] 07:03:00* Test Item Value Reference Range Comments EOSINOPHIL COUNT URINE (test coxq=039708) No Eosinophils Seen % <5% few or none seen [id number] 06:40:00* Test Item Value Reference Range Comments [...] of chronic kidney failure. CBC WITH AUTO [id number] 06:26:00* Test Item Value Reference Range Comments [...] (test code=IG%) 1.3 % 0.0-0.4 CBC AUTO [id number] 12:57:00* Test Item Value Reference Range Comments [...] management of chronic kidney failure. PT AND [id number] 12:38:00* Test Item Value Reference Range Comments [...] obtained over the kidneys and urinarybladder and sales representative printing supplies images were recorded.Findings:The right kidney is normal [...] calculi.6. Preliminary r eport relayed by the museum curator to the attending nurse.This final report was el ectronically signed by Dr Doc Schmidt MD 02/03/201811:27 AMDictated By: DOC MEDELLINDate: 02/03/2018 11:[id number] 08:10:00* Test Item Value Reference Range Comments [...] of chronic kidney failure. CBC WITH AUTO [id number] 06:59:00* Test Item Value Reference Range Comments [...] IG% (test code=IG%) 1.2 % 0.0-0.4 CULTURE, [id number] 06:21:00Specimen: Urine SpecimensCollected: 01/31/2018 21:40 Status: Final Last Updated: 02/03/2018 06:21 Culture Result (Final) (Final) No Growth After 48 Hours [id number] 07:29:00* Test Item Value Reference Range Comments [...] of chronic kidney failure. CBC WITH AUTO [id number] 07:08:00* Test Item Value Reference Range Comments [...] 0.0-3.0 IG% (test code=IG%) 0.5 % 0.0-0.4 [id number] 23:00:00* Test Item Value Reference Range Comments [...] VALUES ARE NOT INTERCHANGEABLE BETWEEN METHODS. 04-30-2006 [id number] 22:33:00* Test Item Value Reference Range Comments [...] management of chronic kidney failure. PT AND [id number] 22:27:00* Test Item Value Reference Range Comments Protime (test code=PT) 10.9 seconds 9.0-11.9 INR (test code=INR) 1.1 0.9-1.1 INR results are intended ONLY to monitor Oral Anticoagulant therapy in stablized patients. The INR Therapeutic Range is 2.0 - 3.0 Patients with a mechanical heart, the INR Range is 2.5 - 3.5 CBC WITH AUTO [id number] 22:17:00* Test Item Value Reference Range Comments [...] 0.0-3.0 IG% (test code=IG%) 0.3 % 0.0-0.4 [id number] 14:46:00* Test Item Value Reference Range Comments [...] and management of chronic kidney failure. HISTOLOGY [id number] 11:34:00 [address] [place], [place] [address]Bancy: [phone] ADBZ #: [id number] Hospice Entrance Attendant: Selvin Jenkins M.D.Surgical Pathology Consultation ReportPatient Name: MCKAY KEITH Case #: [id number] Med. Rec. #:[id number]: RANI-RANI Surgery Date: 01/29/2018 : 1945 (Age: 72) Received: 01/30/2018 Gender: M Copy to : Re ported:01/31/2018Physician(s): Mohini Arben Specimen(s) ReceivedA: Hernia sac, N OS B: Omentum, resection Final Pathologic DiagnosisA. Soft tissue of ab domen, hernia repair:- HERNIA SAC.B. Omentum, resection:- MATURE ADIPOSE TISSUE, NO TUMOR PRESENT. Electronically Signed Out 01/31/2018 Selvin Jenkins MD, Board Certified in Anatomic Pathology Cl inical HistoryAbdominal hernia.Gross DescriptionSpecimen A is labeled hernia sac . Three pieces of fatty omental tissuemeasuring 9.8 x 9 x up to 5 cm in aggregat e are received. Seriallysectioningreveals a slightly hemorrhagic cut surface. Re presentative sections aresubmitted in cassette A.Specimen B is labeled omentum. An aggregate of fatty omental grhqqvvnsvgpjqe55 x 14 x up to 8 cm is received. S erially sectioning reveals a brightyellowcut surface. There are no tumor masses identified. ka01/30/2018 Selvin Jenkins MD, Board Certified in Anatomic Patholog y Microscopic DescriptionMicroscopic examination of specimen A labeled hernia s ac revealsmesothelial-lined fatty fibrovascular tissue. There is a mild chronici nflammatory cell infiltrate seen within the fibrous tissue.Microscopic examinati on of specimen B labeled mesenteric adipose tissuereveals mature adipose tissue. There are no malignant cells seen.Billing Fee Code(s): A; 05220D; [id number] RENAL & BLADDER (KIDNEYS)2018-01-31 11:31:18Renal ultrasound:History: Hematuria [...] MD 01/31/201811:24 AMDictated By: SETH CANODate: 01/31/2018 11:[id number] 10:28:00* Test Item Value Reference Range Comments CPK (test code=CPK) 354 U/L 30-135 CORONARY [id number] 06:23:00* Test Item Value Reference Range Comments [...] Average vLDL (test code=VLDL) 19 mg/dl 20-50 [id number] 06:23:00* Test Item Value Reference Range Comments [...] of chronic kidney failure. CBC WITH AUTO [id number] 05:56:00* Test Item Value Reference Range Comments [...] (test code=IG%) 0.5 % 0.0-0.4 URINALYSIS WITH [id number] 05:28:00* Test Item Value Reference Range Comments Color (test code=UCOLR) Brown Clarity (test code=UCLAR) CLEAR Glucose (test code=UGLUC) 100 NEGATIVE Bilirubin (test code=UBILI) LARGE NEGATIVE Ketones (test code=UKET) 15 NEGATIVE Specific [place] (test code=USPGR) 1.020 1.005-1.030 Blood (test code=UBLD) [...] code=UBACT) 2+ None Seen,Trace CBC WITH AUTO [id number] 07:53:00* Test Item Value Reference Range Comments [...] 42.0-75.0 The value 27.4 originally released by [id number] on 01/30/2018 07:33 was changed to 82.7 by [id number] on 01/30/2018 07:53 LY% (test code=LY) 9.8 % 13.0-42.0 The value 10.0 originally released by [id number] on 01/30/2018 07:33 was changed to 9.8 by [id number] on 01/30/2018 07:53 MO% (test code=MO) 7.2 % 4.0-14.0 The value 7.6 originally released by [id number] on 01/30/2018 07:33 was changed to 7.2 by [email or web address] on 01/30/2018 07:53 EO% (test code=EO) 0.0 % 1.0-5.0 The value 54.7 originally released by [id number] on 01/30/2018 07:33 was changed to 0.0 by [id number] on 01/30/2018 07:53 BA% (test code=BA) 0.1 % 0.0-3.0 IG% (test code=IG%) 0.2 % 0.0-0.4 [id number] 07:15:00* Test Item Value Reference Range Comments Magnesium (test code=MG) 2.2 mg/dl 1.6-2.3 [id number] 07:15:00* Test Item Value Reference Range Comments [...] of chronic kidney failure. CT ABDOMEN/PELVIS W/O [id number] 04:49:33NPO 4 hours. Do not withhold medsEXAM: [...] MD 01/29/2018 4:43AMDictated By: LATOYA GODINEZDate: 01/29 04:43CB WITH AUTO [id number] 03:12:00* Test Item Value Reference Range Comments [...] 42.0-75.0 The value 15.7 originally released by [employer] on 01/29/2018 02:32 was changed to 83.7 by [email or web address] on 01/29/2018 03:11 LY% (test code=LY) 9.0 % 13.0-42.0 The value 8.3 originally released by [employer] on 01/29/2018 02:32 was changed to 9.0 by [id number] on 01/29/2018 03:11 MO% (test code=MO) 6.6 % 4.0-14.0 EO% (test code=EO) 0.1 % 1.0-5.0 The value 68.8 originally released by [employer] on 01/29/2018 02:32 was changed to 0.1 by [email or web address] on 01/29/2018 03:11 BA% (test code=BA) 0.3 % 0.0-3.0 IG% (test code=IG%) 0.3 % 0.0-0.4 NRBC, Auto (test code=NRBC_AUTO) 0 /100WBC 0-2 No previous value was reported. A value of 0 was entered by [employer] on 01/29/2018 03:11 Neutrophils (test code=NEUTR) 84 10\\S\\3/ul 42-75 No previous value was reported. A value of 84 was entered by [employer] on 01/29/2018 03:11 Lymphocytes (test code=LYMPH) 9 % 13-42 No previous value was reported. A value of 9 was entered by [employer] on 01/29/2018 03:11 Monocytes (test code=MONOS) 7 % 4-14 No previous value was reported. A value of 7 was entered by [id number] on 01/29/2018 03:11 LACTIC ACID [id number] 03:05:00* Test Item Value Reference Range Comments LACTATE (test code=LAC) 2.3 mmol/l 0.7-2.0 Critical values were called to Leanne Hughes RN by [id number] on 01/29/18 03:05 CDT. Results were read back by Leanne Hughes RN.[id number] 03:03:00* Test Item Value Reference Range Comments aPTT (test code=PTT) 25.2 seconds 25.3-35.7 PT AND [id number] 03:03:00* Test Item Value Reference Range Comments Protime (test code=PT) 10.1 seconds 9.0-11.8 INR (test code=INR) 1.0 0.9-1.1 INR results are intended ONLY to monitor Oral Anticoagulant therapy in stablized patients. The INR Therapeutic Range is 2.0 - 3.0 Patients with a mechanical heart, the INR Range is 2.5 - 3.5 [id number] 03:00:00* Test Item Value Reference Range Comments [...]
== END | disposition left against medical advice (07) ==
LOC: ER 13:15
DX: Z46.6 Encounter for fitting and adjustment of urinary device (principal)

== ENCOUNTER 2022-07-13 15:51 | Inpatient (IN) | payer MEDICARE, OTHER ==
[~2022-07-13] VITALS: Ht 180.3 cm; Wt 139.3 kg
[~2022-07-13 15:51] MED LIST changes: +ASPIR 8181 MG PO; +ELIQUIS PO; +FLOMAX0.4 MG PO; +LASIX40 MG PO; +MICONAZOLE TOP; +NITROFURANTOIN100 MG PO; +ONDANSETRON ODT4 MG PO; +PEPCID20 MG PO; +POTASSIUM CHLO20 ME1 PO; +SENNA PLUS 8.61 EACH PO
[2022-07-13 16:39] LABS: CLARITY,URINE CLOUDY (CLEAR); COLOR,URINE YELLOW (YELLOW); KETONES,URINE NEGATIVE (NEGATIVE); LEUKOCYTE ESTERASE ,URINE LARGE (NEGATIVE); NITRITE,URINE POSITIVE (NEGATIVE); PROTEIN,URINE DIPSTICK >=300 (NEGATIVE); URINE UROBILINOGEN 0.2 mg/dL (0.2 - 1)
[2022-07-13 16:50] LABS: BASOPHILS % 0.3 % (0.0-1.0); EOSINOPHILS # (AUTO) 0.2 (0.0-0.4); EOSINOPHILS % 1.2 % (0.0-6.0); HEMATOCRIT 38.2 % (38.2-49.6); HEMOGLOBIN 12.2 g/dL (14.0-18.0); LYMPHOCYTES % 7.5 % (18.0-39.1); MEAN CORPUSCULAR HGB CONC 31.9 g/dL (31-35); MONOCYTES # (AUTO) 0.8 (0.2-0.8); MONOCYTES % 5.8 % (4.4-11.3); NEUTROPHILS # (AUTO) 11.7 (2.1-6.9); NEUTROPHILS % 84.6 % (38.7-80.0); RED BLOOD COUNT 3.94 x10e6/uL (4.3-5.7); RED CELL DISTRIBUTION WIDTH 15.1 % (11.7-14.4)
[2022-07-13 16:53] LABS: PLATELET COUNT 99 x10e3/uL (140-360)
[2022-07-13 16:54] LABS: AMORPHOUS SEDIMENT,URINE MODERATE (FEW); BACTERIA,URINE MANY /HPF; WBC,URINE (MAN) 21-50 /HPF (0-5)
[2022-07-13 17:01] LABS: INR 0.96; PROTHROMBIN TIME 13.3 seconds (11.9-14.5)
[2022-07-13 17:11] LABS: ALBUMIN 1.8 g/dL (3.5-5.0); ALBUMIN/GLOBULIN RATIO 0.4 (0.8-2.0); ANION GAP 16.2 mmol/L (8-16); CREATININE, SERUM 3.07 mg/dL (0.72-1.25); MAGNESIUM 2.5 MG/DL (1.3-2.1); POTASSIUM 4.2 mmol/L (3.5-5.1)
[2022-07-13 17:17] LABS: CREATINE KINASE MB 1.1 ng/mL (0-5.0)
[2022-07-13 17:28] LABS: CALCIUM 14.2 mg/dL (8.4-10.2)
[2022-07-13] MEDS ORDERED: FUROSEMIDE INJ 10 MG/ML 4 ML VIAL IV ONE (17:45)
[2022-07-13] MEDS ORDERED: HYDROCORTISONE SOD SUCCINATE 100 MG VIAL IV ONE (17:45)
[2022-07-13] MEDS ORDERED: CALCITONIN SALMON 400 IU/2ML VIAL SC SCH (18:00)
[2022-07-13] MEDS ORDERED: ONDANSETRON HCL INJ 2MG/ML 2ML 2 MG/ML VIAL IV PRN (18:00)
[2022-07-13] MEDS ORDERED: Morphine 2mg Syringe 2 MG/ML SYR IV PRN (18:00)
[2022-07-13] MEDS: LINEZOLID 600 MG/D5W 300ML 300 ML IV SCH (18:15)
[2022-07-13 18:22] LABS: FREE THYROXINE INDEX 1.6025 (1.4-3.8); THYROID STIMULATING HORMONE 8.474 uIU/mL (0.350-4.940)
[2022-07-13] MEDS: CALCITONIN SALMON 400 IU/2ML VIAL IM SCH (19:30)
[2022-07-13 20:40] VITALS: BP 131/84
[2022-07-13 22:22] VITALS: BP 131/84
[2022-07-13 22:32] VITALS: BP 131/84
[2022-07-13] MEDS ORDERED: DICYCLOMINE HCL20 MG PO (22:48)
[2022-07-13] MEDS ORDERED: ACETAMIN-CODE12.5 ML (22:48)
[2022-07-13] MEDS ORDERED: MIRALAX17 GM PO (22:48)
[2022-07-13] MEDS ORDERED: PEPCID20 MG PO (22:48)
[2022-07-13] MEDS ORDERED: ONDANSETRON ODT8 MG PO (22:48)
[2022-07-13] MEDS ORDERED: SODIUM BICARBO650 MG PO (22:48)
[2022-07-13] MEDS ORDERED: SENOKOT-S TABL1 EACH PO (22:48)
[2022-07-13] MEDS ORDERED: DOCUSATE SODIU100 MG PO (22:48)
[2022-07-13] MEDS ORDERED: TYLENOL325 M2 (22:48)
[2022-07-13] MEDS ORDERED: FLOMAX0.4 MG PO (22:48)
[2022-07-14] VITALS (9 sets, daily range): BP systolic 94–111; BP diastolic 52–73
[2022-07-14] MEDS: CALCITONIN SALMON 400 IU/2ML VIAL IM SCH ×2 (06:24→17:10)
[2022-07-14] MEDS: LINEZOLID 600 MG/D5W 300ML 300 ML IV SCH ×2 (06:24→17:04)
[2022-07-14 07:01] LABS: BASOPHILS % 0.2 % (0.0-1.0); EOSINOPHILS % 0.1 % (0.0-6.0); HEMATOCRIT 38.2 % (38.2-49.6); HEMOGLOBIN 12.6 g/dL (14.0-18.0); LYMPHOCYTES # (AUTO) 0.7 (1.0-3.2); LYMPHOCYTES % 4.7 % (18.0-39.1); MEAN CORPUSCULAR HEMOGLOBIN 31.6 pg (28-32); MEAN CORPUSCULAR VOLUME 95.7 fL (81-99); MONOCYTES # (AUTO) 0.9 (0.2-0.8); MONOCYTES % 5.9 % (4.4-11.3); NEUTROPHILS # (AUTO) 13.4 (2.1-6.9); NEUTROPHILS % 87.9 % (38.7-80.0); PLATELET COUNT 135 x10e3/uL (140-360); RED BLOOD COUNT 3.99 x10e6/uL (4.3-5.7); RED CELL DISTRIBUTION WIDTH 14.6 % (11.7-14.4)
[2022-07-14 07:20] LABS: ALBUMIN 1.8 g/dL (3.5-5.0); ALBUMIN/GLOBULIN RATIO 0.4 (0.8-2.0); ANION GAP 17.8 mmol/L (8-16); CREATININE, SERUM 3.16 mg/dL (0.72-1.25); POTASSIUM 3.8 mmol/L (3.5-5.1)
[2022-07-14 07:34] LABS: CALCIUM 14.7 mg/dL (8.4-10.2)
[2022-07-14 08:01] LABS: CREATINE KINASE MB 1.2 ng/mL (0-5.0)
[2022-07-14] MEDS ORDERED: SODIUM CHLORIDE 0.9% 250ML 250 ML ONE (10:03)
[2022-07-14] MEDS ORDERED: SODIUM CHLORIDE 0.9% 500ML 500 ML IV ONE ×2 (12:00→12:30)
[2022-07-14 12:34] LABS: CREATINE KINASE MB 1.3 ng/mL (0-5.0)
[2022-07-14] MEDS ORDERED: SODIUM CHLORIDE 0.9% 1000ML 1,000 ML IV ONE (13:15)
[2022-07-14] MEDS: SODIUM CHLORIDE 0.9% 1000ML 1,000 ML IV SCH ×2 (13:47→21:14)
[2022-07-15] VITALS (7 sets, daily range): BP systolic 97–118; BP diastolic 59–84
[2022-07-15] MEDS: CALCITONIN SALMON 400 IU/2ML VIAL IM SCH (05:25)
[2022-07-15] MEDS: LINEZOLID 600 MG/D5W 300ML 300 ML IV SCH ×2 (05:25→17:42)
[2022-07-15] MEDS: SODIUM CHLORIDE 0.9% 1000ML 1,000 ML IV SCH ×3 (05:26→21:07)
[2022-07-15 07:27] LABS: ALBUMIN/GLOBULIN RATIO 0.5 (0.8-2.0); ANION GAP 15.7 mmol/L (8-16); CREATININE, SERUM 3.58 mg/dL (0.72-1.25); POTASSIUM 3.7 mmol/L (3.5-5.1)
[2022-07-15 07:35] LABS: CALCIUM 15.2 mg/dL (8.4-10.2)
[2022-07-15] MEDS: CALCITONIN SALMON 400 IU/2ML VIAL SC SCH ×2 (14:14→17:00)
[2022-07-15] MEDS: PAMIDRONATE DISODIUM 90 MG in SODIUM CHLORIDE 0.9% 1000ML 1,000 ML IV ONE ×2 (16:35→19:20)
[2022-07-16 00:34] VITALS: BP 87/58
[2022-07-16 04:00] VITALS: BP 86/68
[2022-07-16] MEDS: LINEZOLID 600 MG/D5W 300ML 300 ML IV SCH (05:53)
[2022-07-16] MEDS: SODIUM CHLORIDE 0.9% 1000ML 1,000 ML IV SCH ×2 (05:54→09:18)
[2022-07-16 09:20] VITALS: BP 176/104
[2022-07-16] MEDS: CALCITONIN SALMON 400 IU/2ML VIAL SC SCH (09:26)
[2022-07-16 10:18] LABS: BASOPHILS % 0.2 % (0.0-1.0); HEMATOCRIT 29.7 % (38.2-49.6); HEMOGLOBIN 9.2 g/dL (14.0-18.0); LYMPHOCYTES # (AUTO) 0.4 (1.0-3.2); LYMPHOCYTES % 2.7 % (18.0-39.1); MEAN CORPUSCULAR HEMOGLOBIN 31.4 pg (28-32); MEAN CORPUSCULAR VOLUME 101.4 fL (81-99); MONOCYTES # (AUTO) 0.6 (0.2-0.8); MONOCYTES % 4.6 % (4.4-11.3); NEUTROPHILS # (AUTO) 12.6 (2.1-6.9); NEUTROPHILS % 91.8 % (38.7-80.0); PLATELET COUNT 101 x10e3/uL (140-360); RED BLOOD COUNT 2.93 x10e6/uL (4.3-5.7); RED CELL DISTRIBUTION WIDTH 15.7 % (11.7-14.4)
[2022-07-16 10:45] LABS: ALBUMIN 1.6 g/dL (3.5-5.0); ALBUMIN/GLOBULIN RATIO 0.4 (0.8-2.0); ANION GAP 16.4 mmol/L (8-16); CALCIUM 12.9 mg/dL (8.4-10.2); CREATININE, SERUM 3.49 mg/dL (0.72-1.25); POTASSIUM 3.4 mmol/L (3.5-5.1)
[2022-07-16] MEDS ORDERED: Morphine 2mg Syringe 2 MG/ML SYR IV PRN (12:00)
[2022-07-16] MEDS ORDERED: LORAZEPAM INJ 2 MG/ML VIAL IV PRN ×2 (12:00→17:45)
[2022-07-16 12:40] LABS: ANISOCYTOSIS SLIGHT; BAND NEUTROPHILS % (MANUAL) 2 %; LYMPHOCYTES % (MANUAL) 5 % (19-48); MONOCYTES % (MANUAL) 5 % (3.4-9.0); NEUTROPHILS % (MANUAL) 88 % (40-74); PLATELET ESTIMATE SLIGHTLY DECREASED; PLATELET MORPHOLOGY COMMENT NORMAL
[2022-07-16 12:55] VITALS: BP 73/54
[2022-07-16 15:59] VITALS: BP 94/61
[2022-07-16] MEDS ORDERED: Morphine 4mg INJECTION 4 MG/ML INJ IV PRN (17:45)
[2022-07-16] MEDS ORDERED: ONDANSETRON HCL INJ 2MG/ML 2ML 2 MG/ML VIAL IV PRN (17:45)
[2022-07-16] MEDS ORDERED: SCOPOLAMINE 1 MG PATCH TOP SCH (17:45)
[2022-07-16] MEDS ORDERED: HYOSCYAMINE 0.125 MG TAB PO PRN (17:45)
[2022-07-16] MEDS ORDERED: ACETAMINOPHEN 650 MG SUPP PR PRN (17:45)
[2022-07-16] MEDS: LORAZEPAM INJ 2 MG/ML VIAL IV SCH (18:00)
[2022-07-16 20:00] VITALS: BP 87/63
[2022-07-16] MEDS: Morphine 4mg INJECTION 4 MG/ML INJ IV SCH (20:05)
[2022-07-17] MEDS: LORAZEPAM INJ 2 MG/ML VIAL IV SCH (00:01)
[2022-07-17 00:37] VITALS: BP 81/59
[2022-07-17 04:00] VITALS: BP 111/82
[2022-07-17] MEDS ORDERED: LORAZEPAM INJ 2 MG/ML VIAL IV SCH ×2 (04:00→08:00)
[2022-07-17] MEDS: Morphine 4mg INJECTION 4 MG/ML INJ IV SCH ×3 (04:04→08:56)
[2022-07-17 09:03] VITALS: BP 67/57
== END 2022-07-16 18:28 | disposition hospice, inpatient (51) | DRG 698 ==
LOC: ER 16:03 → MERGE 18:11 → OBSVTOIN 18:11 → INTOOBSV 18:11 → ERHOLD 18:11 → MED/SURG 20:30 → MED/SURG2 07-14 18:25 → UNDODISIN 07-17 10:49
PROVIDERS: ADMIT Internal Medicine; ATTEND Internal Medicine
DX: N99.521 Infection of incontinent external stoma of urinary tract (principal); A41.50 Gram-negative sepsis, unspecified; G93.41 Metabolic encephalopathy; N39.0 Urinary tract infection, site not specified; I13.0 Hypertensive heart and chronic kidney disease with heart failure and stage 1 through stage 4 chronic kidney disease, or unspecified chronic kidney disease; I50.32 Chronic diastolic (congestive) heart failure; N17.9 Acute kidney failure, unspecified; E11.22 Type 2 diabetes mellitus with diabetic chronic kidney disease; N18.30 Chronic kidney disease, stage 3 unspecified; Z74.09 Other reduced mobility; Z66 Do not resuscitate; L89.152 Pressure ulcer of sacral region, stage 2; N18.2 Chronic kidney disease, stage 2 (mild); E83.52 Hypercalcemia; Z74.01 Bed confinement status; Z86.718 Personal history of other venous thrombosis and embolism; Z79.01 Long term (current) use of anticoagulants; N26.1 Atrophy of kidney (terminal); K57.90 Diverticulosis of intestine, part unspecified, without perforation or abscess without bleeding; R31.9 Hematuria, unspecified; N32.9 Bladder disorder, unspecified
CPT/HCPCS: 0223U; 36415; 70450; 71045; 74176; 76770; 80053; 81001; 82550; 82553; 83735; 83880; 83970; 84100; 84436; 84443; 84479; 84484; 85025; 85610; 85730; 87040; 87086; 87186; 93005; 94799; 99252; 99284; J1720; J1940; J2020; J2060; J2185; J2270; J2430; J7030; J7040; J7050

== ENCOUNTER 2022-07-16 18:29 | Inpatient (IN) | payer MEDICARE, OTHER ==
[~2022-07-16] VITALS: Ht 180.3 cm; Wt 126.6 kg
[~2022-07-16 18:29] MED LIST changes: +ACETAMIN-CODE12.5 ML; +DICYCLOMINE HCL20 MG PO; +DOCUSATE SODIU100 MG PO; +MIRALAX17 GM PO; +ONDANSETRON ODT8 MG PO; +SENOKOT-S TABL1 EACH PO; +SODIUM BICARBO650 MG PO; +TYLENOL325 M2
[2022-07-17 12:58] VITALS: BP 66/51
[2022-07-17] MEDS ORDERED: SCOPOLAMINE 1 MG PATCH TD PRN (13:30)
[2022-07-17] MEDS ORDERED: Morphine 4mg INJECTION 4 MG/ML INJ IV PRN (13:30)
[2022-07-17] MEDS ORDERED: SODIUM CHLORIDE FLUSH 10 ML SYR INJ PRN (13:30)
[2022-07-17] MEDS ORDERED: ACETAMINOPHEN 650 MG SUPP PR PRN (13:30)
[2022-07-17] MEDS ORDERED: LORAZEPAM INJ 2 MG/ML VIAL IV PRN (13:30)
[2022-07-17] MEDS ORDERED: ONDANSETRON HCL INJ 2MG/ML 2ML 2 MG/ML VIAL IV PRN (13:30)
[2022-07-17] MEDS ORDERED: HYOSCYAMINE 0.125 MG TAB SL PRN (13:30)
[2022-07-17] MEDS ORDERED: DIPHENHYDRAMINE HCL INJ 50 MG/ML VIAL IV PRN (13:30)
[2022-07-17] MEDS ORDERED: HALOPERIDOL LACTATE 5 MG/ML VIAL IV PRN (13:30)
[2022-07-17 13:40] VITALS: BP 107/77
[2022-07-17] MEDS: LORAZEPAM INJ 2 MG/ML VIAL IV PRN ×2 (14:12→19:27)
[2022-07-17] MEDS: Morphine 4mg INJECTION 4 MG/ML INJ IV SCH ×2 (14:12→19:27)
[2022-07-17] MEDS ORDERED: Morphine 4mg INJECTION 4 MG/ML INJ ONE (14:18)
[2022-07-17 20:00] VITALS: BP 72/48
[2022-07-18 00:47] VITALS: BP 52/43
[2022-07-18] MEDS: Morphine 4mg INJECTION 4 MG/ML INJ IV SCH ×5 (00:49→14:14)
[2022-07-18 05:44] VITALS: BP 70/38
[2022-07-18 06:26] VITALS: BP 70/38
[2022-07-18 06:51] VITALS: BP 70/38
[2022-07-18 06:55] VITALS: BP 70/38
[2022-07-18] MEDS: LORAZEPAM INJ 2 MG/ML VIAL IV SCH ×2 (11:54→14:13)
== END 2022-07-18 20:58 | disposition expired | DRG 951 ==
LOC: MED/SURG2 18:29
PROVIDERS: ADMIT Internal Medicine; ATTEND Internal Medicine
DX: Z51.5 Encounter for palliative care (principal)
CPT/HCPCS: J1630; J2060; J2270